=== PATIENT | female | born 1980 | race Caucasian/White ===

== ENCOUNTER 2020-08-09 19:14 | Emergency (ER) | payer OTHER, SELFPAY ==
[2020-08-09 20:33] VITALS: BP 125/88; PULSE 85; RESP 18; TEMP 36.7; O2SAT 99; BMI 20.9
[2020-08-09 20:46] LABS: MANUAL DIFF FLAG NO
[2020-08-09 20:50] LABS: Basophils Percent Auto 0.3 % (0-2); Eosinophils Absolute Auto 0.1 X10*3/uL (0.0-0.4); Eosinophils Percent Auto 0.9 % (0-4); Hematocrit 36.8 % (37-47); Hemoglobin 12.6 g/dl (12.0-16.0); Imm Gran Abs Auto 0.05 X10*3/uL (0.00-0.03); Imm Gran Pct Auto 0.4 % (0.0-0.4); Lymphocytes Absolute Auto 2.5 X10*3/uL (1.2-4.9); Lymphocytes Percent Auto 21.9 % (20-40); Mean Corpuscular HGB Conc 34.2 g/dl (31.0-35.0); Mean Corpuscular Hemoglobin 32.5 pg (27.0-33.0); Mean Corpuscular Volume 94.8 fL (80-98); Mean Platelet Volume 9.1 fL (9.4-12.3); Monocytes Absolute Auto 0.7 X10*3/uL (0.1-1.2); Monocytes Percent Auto 5.7 % (2-11); Neutrophils Absolute Auto 8.2 X10*3/uL (2.0-8.3); Neutrophils Percent Auto 70.8 % (45-73); Platelet Count 357 X10*3/uL (160-400); Red Blood Count 3.88 X10*6/uL (4.20-5.50); Red Cell Distribution Width 11.9 % (11.0-16.0); White Blood Count 11.6 X10*3/uL (4.8-10.8)
[2020-08-09 21:22] LABS: Alanine Aminotransferase < 6 U/L (0-31); Albumin Level 4.5 g/dL (3.5-5.0); Alkaline Phosphatase 58 U/L (39-117); Anion Gap 11 (12-20); Aspartate Amino Transferase 15 U/L (5-31); Bilirubin Total 0.2 mg/dL (0.0-1.0); Blood Urea Nitrogen 9 mg/dL (9-16); Carbon Dioxide 24 mmol/L (22-29); Chloride 107 mmol/L (96-108); Creatinine Clr Calc Pharmacy 104.6; Estimated Glomerular Filt Rate > 60; Glucose Random 83 mg/dL (60-115); Sodium 138 mmol/L (135-145)
== END 2020-08-10 01:44 | disposition left against medical advice (07) ==
PROVIDERS: Emergency Medicine Emergency Medical Services; Emergency Provider Emergency Medicine
DX: R10.9 Unspecified abdominal pain (principal)
CPT/HCPCS: 36415; 80053; 85025; 99282; 99283

== ENCOUNTER 2022-02-17 08:34 | Day surgery (SDC) | payer OTHER, SELFPAY ==
[2022-02-13 14:28] VITALS: BMI 24.3
--- NOTE | 2022-02-15 14:02 | HO.ANESPROP2 ---
Documented by User: Martha Schmidt NP 02/16/22 11:03 HPI - Anesthesia Eval Consult details Narrative: 42yo F for Upper Endoscopy PMFSH Past Medical History Medical History Anxiety and depression Chronic fatigue syndrome Encephalomyelitis History of substance abuse IBS (irritable bowel syndrome) Interstitial cystitis PFO (patent foramen ovale) PTSD (post-traumatic stress disorder) RBBB Surgical History Surgical History H/O colonoscopy History of lingual frenulectomy Hx of wisdom tooth extraction Social History Social History (Updated 02/17/22 @ 10:00 by Latonya Michele MD) Patient Tobacco Use Status: Former Tobacco user Tobacco use type: Cigarette Use of substances other than those prescribed or required for medical reasons: Yes Substance Use Type: Marijuana Substance Use Frequency: Daily Last Used Substance: Hours (ago) Are you DNR?: No Advance Directives: No Advance Directives Information Provided: Yes Meds Allergies Allergy/AdvReac Type Severity Reaction Status Date / Time No Known Allergies Allergy Verified 08/09/20 20:32 Home Medications Medication Instructions Recorded Confirmed Last Taken Type acetaminophen 500 mg tablet 500 mg PO DAILY 02/13/22 02/13/22 Unknown History acetylcarnitine 500 mg capsule 500 mg PO DAILY 02/13/22 02/13/22 Unknown History acetylcysteine 500 mg capsule 500 mg PO DAILY 02/13/22 02/13/22 Unknown History acyclovir 400 mg tablet 400 mg PO DAILY 02/13/22 02/13/22 Unknown History amitriptyline 10 mg tablet 30 mg PO BEDTIME 02/13/22 02/13/22 Unknown History bacillus coagulans-inulin 1 1 cap PO DAILY 02/13/22 02/13/22 Unknown History billion cell-250 mg capsule buspirone 10 mg tablet 10 mg PO BEDTIME 02/13/22 02/13/22 Unknown History buspirone 5 mg tablet 5 mg PO QAM 02/13/22 02/13/22 Unknown History cholecalciferol (vitamin D3) 125 125 mcg PO DAILY 02/13/22 02/13/22 Unknown History mcg (5,000 unit) tablet (Vitamin D3) dicyclomine 20 mg tablet 1 tab PO TID PRN Gastrointestinal 02/13/22 02/13/22 Unknown History Spasms Or Cramping ketorolac 10 mg tablet 1 tab PO Q6H PRN Pain 02/13/22 02/13/22 Unknown History lorazepam 1 mg tablet 1 mg PO TID PRN Anxiety 02/13/22 02/17/22 02/17/22 08:30 History lysine 500 mg tablet (L-Lysine) 1,000 mg PO DAILY 02/13/22 02/13/22 Unknown History melatonin 3 mg tablet 3 mg PO BEDTIME 02/13/22 02/13/22 Unknown History naproxen sodium 220 mg tablet 220 mg PO BID PRN Pain 02/13/22 02/13/22 Unknown History omega 4-xan-hup-fish oil 900 1 cap PO DAILY 02/13/22 02/13/22 Unknown History mg-1,400 mg capsule,delayed release ondansetron HCl 8 mg tablet 8 mg PO Q12H PRN Nausea 02/13/22 02/13/22 Unknown History propranolol 20 mg tablet 20 mg PO DAILY PRN Cardiac 02/13/22 02/13/22 Unknown History Arrhythmia lamotrigine 100 mg tablet 1 tab PO QAM 02/17/22 02/17/22 02/17/22 08:30 History Exam Exam Date and Time: February 15, 2022 1402 Height,Weight and Vital Signs: Height 5 ft 4 in Weight 64.41 kg Narrative Narrative: ECHO 05/2021 LV sys function is hyperdynamic iwht EF >70% Diastolic filling pattern is normal PFO present with R to L shunt EKG 01/2021 SR @ RAD incomplete RBBB (old) Assessment and Plan Assessment Anesthesia Assessment: Chart Reviewed Documented by User: Latonya Michele MD 02/17/22 10:05 PMFSH Past Medical History Medical History Anxiety and depression Chronic fatigue syndrome Encephalomyelitis History of substance abuse IBS (irritable bowel syndrome) Interstitial cystitis PFO (patent foramen ovale) PTSD (post-traumatic stress disorder) RBBB Family History Family history of problems with anesthesia: No Surgical History Surgical History H/O colonoscopy History of lingual frenulectomy Hx of wisdom tooth extraction History of Problems with Anesthesia: No Social History Social History (Updated 02/17/22 @ 10:00 by Latonya Michele MD) Patient Tobacco Use Status: Former Tobacco user Tobacco use type: Cigarette Use of substances other than those prescribed or required for medical reasons: Yes Substance Use Type: Marijuana Substance Use Frequency: Daily Last Used Substance: Hours (ago) Are you DNR?: No Advance Directives: No Advance Directives Information Provided: Yes Meds Allergies Allergy/AdvReac Type Severity Reaction Status Date / Time No Known Allergies Allergy Verified 08/09/20 20:32 Home Medications Medication Instructions Recorded Confirmed Last Taken Type acetaminophen 500 mg tablet 500 mg PO DAILY 02/13/22 02/13/22 Unknown History acetylcarnitine 500 mg capsule 500 mg PO DAILY 02/13/22 02/13/22 Unknown History acetylcysteine 500 mg capsule 500 mg PO DAILY 02/13/22 02/13/22 Unknown History acyclovir 400 mg tablet 400 mg PO DAILY 02/13/22 02/13/22 Unknown History amitriptyline 10 mg tablet 30 mg PO BEDTIME 02/13/22 02/13/22 Unknown History bacillus coagulans-inulin 1 1 cap PO DAILY 02/13/22 02/13/22 Unknown History billion cell-250 mg capsule buspirone 10 mg tablet 10 mg PO BEDTIME 02/13/22 02/13/22 Unknown History buspirone 5 mg tablet 5 mg PO QAM 02/13/22 02/13/22 Unknown History cholecalciferol (vitamin D3) 125 125 mcg PO DAILY 02/13/22 02/13/22 Unknown History mcg (5,000 unit) tablet (Vitamin D3) dicyclomine 20 mg tablet 1 tab PO TID PRN Gastrointestinal 02/13/22 02/13/22 Unknown History Spasms Or Cramping ketorolac 10 mg tablet 1 tab PO Q6H PRN Pain 02/13/22 02/13/22 Unknown History lorazepam 1 mg tablet 1 mg PO TID PRN Anxiety 02/13/22 02/17/22 02/17/22 08:30 History lysine 500 mg tablet (L-Lysine) 1,000 mg PO DAILY 02/13/22 02/13/22 Unknown History melatonin 3 mg tablet 3 mg PO BEDTIME 02/13/22 02/13/22 Unknown History naproxen sodium 220 mg tablet 220 mg PO BID PRN Pain 02/13/22 02/13/22 Unknown History omega 0-xmu-lii-fish oil 900 1 cap PO DAILY 02/13/22 02/13/22 Unknown History mg-1,400 mg capsule,delayed release ondansetron HCl 8 mg tablet 8 mg PO Q12H PRN Nausea 02/13/22 02/13/22 Unknown History propranolol 20 mg tablet 20 mg PO DAILY PRN Cardiac 02/13/22 02/13/22 Unknown History Arrhythmia lamotrigine 100 mg tablet 1 tab PO QAM 02/17/22 02/17/22 02/17/22 08:30 History Exam Height,Weight and Vital Signs: Height 5 ft 4 in Weight 64.41 kg Vital Signs Temp Pulse Resp BP Pulse Ox O2 Del Method 02/17/22 09:42 97.0 F 87 18 129/74 98 Room Air Pertinent Lab Results Pertinent Lab Results: Lab Results 02/17/22 Range/Units 09:15 Urine Test NEGATIVE (NEGATIVE) Airway Mallampati Class: II TM Dist: >3cm Neck ROM: Full (Sees physical therapy ) Loose/Missing/Broken Teeth: Yes (Top front chipped and cracked) Heart: RRR Lungs: CTAB Assessment and Plan Assessment Anesthesia Assessment: Anesthesia Plan Discussed Final Anesthetic Review Family History of Problems with Anesthesia: No History of Problems with Anesthesia: No NPO: Yes ASA Class: III Final Preanesthetic Review: No Changes in Pt Med Stat, Meds/Allgs Chart Reviewed, Consent Obtained/Reviewed and Anes Risks/Benef Reviewed Patient Risk: Intermediate Procedure Risk: Low Assessment/Block/Sedation in SS: Assess/Block/Sedation-SS Anesthetic Plan Anesthetic Plan: MAC: Disposition: Standard PACU
[2022-02-17 08:45] VITALS: BMI 24.0
[2022-02-17 09:40] LABS: UPreg QC Valid YES; Urine Pregnancy NEGATIVE (NEGATIVE)
[2022-02-17 09:42] VITALS: BP 129/74; PULSE 87; RESP 18; TEMP 36.1; O2SAT 98
[2022-02-17] MEDS: Lactated Ringers 1,000 ML 100 ML IVCONT (09:42)
[2022-02-17 10:36] VITALS: BP 108/64; PULSE 91; RESP 16; TEMP 37.1; O2SAT 96
--- NOTE | 2022-02-17 10:37 | P.BOP_ITS ---
Brief Operative Note Date of Service: 02/17/22 Pre-op diagnosis: GERD, abdominal discomfort Post-op diagnosis: other (Hiatal hernia) Procedure: EGD with biopsies Surgeon: Doug Castro Anesthesia: MAC Was an Insurance Underwriter used for this Procedure?: No Estimated blood loss (mL): 2.0 Pathology: other (A. Descending duodenum B. Gastric antrum C. EG Junction at 35cm) Condition: stable Disposition: PACU
[2022-02-17 10:51] VITALS: BP 113/69; PULSE 86; RESP 18; O2SAT 96
[2022-02-17 11:06] VITALS: BP 118/64; PULSE 81; RESP 16; TEMP 37.1; O2SAT 100
--- NOTE | 2022-02-17 21:46 | OP_ITS ---
SURGEON: Doug Castro MD INDICATIONS: The patient presents for evaluation of abdominal discomfort and gastroesophageal reflux. Full consent has been obtained from her for this, including risks of bleeding and perforation. PREOPERATIVE DIAGNOSIS: POSTOPERATIVE DIAGNOSIS: PROCEDURE PERFORMED: Esophagogastroduodenoscopy with biopsies. ESTIMATED BLOOD LOSS: COMPLICATIONS: ANESTHESIA: Monitored anesthesia care. ASSISTANTS: SPECIMENS: PREOPERATIVE DIAGNOSES: Abdominal discomfort and gastroesophageal reflux. POSTOPERATIVE DIAGNOSES: Abdominal discomfort and gastroesophageal reflux, rule out celiac disease, rule out gastritis and/or H pylori, small hiatal hernia. DESCRIPTION OF PROCEDURE: The patient was placed in the left lateral decubitus position. The Olympus video gastroscope was passed into the posterior oropharynx and upper esophagus under direct vision. The scope was passed slowly to the distal esophagus. The gastroesophageal junction appeared at 35 cm. There was some very slight irregularity but no evidence of esophagitis nor any definitive evidence of Jesus mucosa. The scope entered into the stomach. There was a small hiatal hernia. The scope was advanced to the pylorus and the duodenum was cannulated to the descending portion. The duodenum including the bulb appeared normal without mass or ulceration. The duodenal folds appeared normal. Biopsies were obtained from the 2nd and 3rd portions. The scope was withdrawn back to the stomach. The gastric antrum and body appeared normal with good peristalsis. Biopsies were obtained from the gastric antrum. The scope was retroflexed visualizing the proximal stomach carefully, which appeared normal, without any sign of mass or ulceration. The scope was straightened and withdrawn back to the esophagus. Biopsies were obtained at the EG junction at 35 cm. Proximal to this, the esophageal mucosa appeared normal. The scope was then withdrawn from the patient. She tolerated the procedure well and was returned to the recovery area in stable condition. IMPRESSION: 1. Small hiatal hernia. 2. Rule out celiac disease. 3. Rule out gastritis and/or Helicobacter pylori. PLAN: The results of the biopsies will be checked. She was instructed to see me again in several months for a followup office visit. At this point, I do not think she needs any further studies, but at some point if she continues to have significant upper abdominal complaints, we may want to obtain an abdominal ultrasound, even though she had a negative CT scan, so as to further assess for gallstones. We may want to get a nuclear medicine gastric emptying study at some point as well. MD LD Baird/BRYANT / [phone] [email or web address]
== END 2022-02-17 11:40 | disposition home or self-care (01) ==
PROVIDERS: Nurse Practitioner; PCP Nurse Practitioner Family; Visit Provider Internal Medicine
PROC: 0DJ08ZZ Inspection of Upper Intestinal Tract, Via Natural or Artificial Opening Endoscopic (ICD-10-PCS; CPT 43235; principal; 2022-02-17 09:50)
DX: R10.13 Epigastric pain (principal); K21.9 Gastro-esophageal reflux disease without esophagitis; K44.9 Diaphragmatic hernia without obstruction or gangrene; K58.0 Irritable bowel syndrome with diarrhea; R53.82 Chronic fatigue, unspecified; G04.90 Encephalitis and encephalomyelitis, unspecified; N30.10 Interstitial cystitis (chronic) without hematuria; E55.9 Vitamin D deficiency, unspecified; F41.8 Other specified anxiety disorders; Z79.1 Long term (current) use of non-steroidal anti-inflammatories (NSAID); Z79.899 Other long term (current) drug therapy; Z87.891 Personal history of nicotine dependence
CPT/HCPCS: 43239; 81025; 88305; 88342; J2250

== ENCOUNTER 2022-06-21 11:38 | Emergency (ER) | payer OTHER, SELFPAY ==
--- NOTE | ~2022-06-21 | CT_ITS ---
EXAMINATION: CT HEAD WITHOUT CONTRAST CLINICAL INFORMATION: Dizziness and confusion. Evaluate for stroke or hemorrhage. COMPARISON: No relevant prior imaging. TECHNIQUE: Contiguous axial imaging was performed from the skull base to vertex without intravenous administration of contrast. This CT examination was performed using dose optimization techniques as appropriate, variously including the following: *Automated exposure control *Adjustment of mA and/or kV according to patient size (this includes techniques or standardized protocols for targeted exams where dose is matched to indication/reason for exam; i.e. extremities or head) *Use of iterative reconstruction technique DLP: 598 mGy-cm FINDINGS: There is no acute intracranial hemorrhage or abnormal extra-axial collection. No intracranial mass effect or midline shift. Lateral and third ventricles are normal. No hydroceles. Whitt-white matter differentiation is preserved and there is no evidence of acute territorial infarct. The calvarium and skull base are intact. Mastoid air cells and middle ear cavities are well-aerated. No active paranasal sinus disease. CT/CT head/brain wo IV con IMPRESSION: Unremarkable CT scan of the head. No evidence of acute territorial infarct or hemorrhage.
[2022-06-21 12:13] VITALS: BP 140/78; PULSE 82; O2SAT 99
[2022-06-21 12:20] VITALS: BP 120/70; PULSE 74; RESP 16; TEMP 37.1; O2SAT 100; BMI 25.7
--- OUTSIDE RECORDS SUMMARY | 2022-06-21 12:36 | XMS_ITS ---
:1980 Demographics Address [address] [place] [address] Email Address Preferred Language Greek Marital Status Unknown Mormon Affiliation Unknown Race White Ethnic Group Not or Author Organization [facility] Address [address] [place] [address] Support Name Relationship Address Phone DAHIANA CORDOVA Unavailable [address] [place] [address] RUBIN CORDOVA Unavailable [address] [address] Care Team Providers Name Role Phone Doug Castro Unavailable Unavailable PROBLEMS Type Condition ICD9-CM [id number] Onset Condition SNOMED Cod e Code Code Dates Status Problem GERD K21.9 Active [id number] (gastroesophageal reflux disease) Problem Gastroesophageal K21.9 Active reflux Problem Irritable bowel K58.0 Active 1970 syndrome with diarrhea Problem Abdominal pain, R10.13 Active 7992 2008 acute, epigastric ALLERGIES No Known Allergies ENCOUNTERS Encounter Location Date Diagnosis [facility] Outpatient [address] [place] [address] Feb, Hiatal hernia K 44.9 ; [place], [place] [phone] Abdominal pain, generalized R10.84 and Gastr oesophageal reflux K21.[address] Feb, [facility] [address] [place] [address] Dec, [facility] [address] [place] [address] November, GERD ([facility] [address] [place], [place] reflux dis ease) K21.9 ; Abdominal pain, acute, epigastric R10.1 3 and Irritable bowel syndrome with diarrhea K5 8.0 IMMUNIZATIONS No Known Immunizations SOCIAL HISTORY Qualifiers Date Former Smoker REASON FOR REFERRAL FUNCTIONAL STATUS PLAN OF CARE Activity Details Pending Test Pathology Future/Pending Procedure UPPER GI ENDOSCOPY 20211209 VITAL SIGNS Weight 142 lbs 2021-12-09 Height 64 in 2021-12-09 BMI 24.37 kg/m2 2021-12-09 Temperature 98.4 degrees Fahrenheit 2021-12-09 Blood pressure systolic 00 mm Hg 2021-12-09 Blood pressure diastolic 00 mm Hg 2021-12-09 MEDICATIONS Medication Instructions Dosage Frequency Start End Duration Statu s Date Date Trace Minerals Active Cu-Mn-Se-Zn Lysine 500 MG as directed Active Acetaminophen 500 Orally every 6 1 capsule 6h Active MG hrs as needed Propranolol HCl TAKE ONE 30 Active 20 MG TABLET BY MOUTH THREE TIMES A DAY NEEDED [place] 3 Active Soluble Fiber Active Melatonin Active D-3-5 125 MCG TAKE ONE 90 Active (5000 UT) CAPSULE BY MOUTH EVERY DAY Pumpkin Seed Oil as directed Act jenise - busPIRone HCl 5 TAKE 1 30 Active MG TABLET BY MOUTH TWICE A DAY FOR 2 WEEKS, THEN DECREASE TO HALF A TABLET TWO TIMES A DAY Probiotic - as directed Active Naproxen Sodium Orally every 12 1 capsule 12h Active 220 MG hrs with food or milk as needed Xembify 1 GM/5ML 30 Active Acetyl Active L-Carnitine Banophen 25 MG Orally Once a 1 tablet at 24h 30 day( s) Active day bedtime as needed Acyclovir 400 MG 5 Active L-Theanine Active Amitriptyline HCl Oral Once a day TAKE 4 24h Active 10 MG TABLETS BY MOUTH NIGHTLY AT BEDTIME. Dicyclomine HCl 15 Active 20 MG Loratadine 10 MG Orally Once a 1 tablet 24h 30 day(s ) Active day lamoTRIgine 100 30 Active MG N-Acetyl Cysteine as directed Ac tive 600 MG hydrOXYzine HCl 30 Active 25 MG LORazepam 0.5 MG TAKE ONE 30 Active TABLET BY MOUTH EVERY 8 HOURS NEEDED FOR ANXIETY PROCEDURES Procedure Date Ordered Result Body Site BP SCR NOT PRFRM REC REASON NOS December 09, 2021 TOBACCO NON-USER December 09, 2021 DOC MEDS VERIFIED W/PT OR RE December 09, 2021 UPPER GI ENDOSCOPY, BIOPSY Feb 17, 2022 RESULTS Name Result Date Reference Range Ur Preg Test 2022-02-17 Urine NEGATIVE NEGATIVE REASON FOR VISIT gerd,epigastric pain, has taken a lot of naproxen , gerd,epigastric pain, Patient presents today forchest pain Insurance Providers [facility]ly [facility] Member Patient Patient Patient Patient Patient Subscriber Subscriber Subscriber Group Insurance Plan Plan Plan Plan ID Relationship Address Phone Name Date of ID Name Date of No Type Insurance Insurance Insurance Coverage to Subscriber Address Phone Name Dates [employer] [phone] [employer] self DAHIANA [id number] [facility] [address] [place] [address] Plan [id number]
--- NOTE | 2022-06-21 12:37 | ED.AMS ---
HPI - Altered Mental Status General Chief Complaint: Dizziness Stated Complaint: Dizzy, confused per EMS Time Seen by Provider: 06/21/22 12:04 Source: patient Mode of arrival: EMS Limitations: no limitations History of Present Illness HPI narrative: 42-year-old female who presents emergency department for evaluation of altered mental status and multiple other complaints. Patient states that she was working at her desk at around 10:40 when she had a sudden onset of change in mental status. She states she felt as if she was high. She states that lytes were bright and things did not seem real. She states that she then developed a coldness in both her hands and tingling this in her hands. She does have a history of anxiety and panic attacks since that she was feeling anxious. She took her blood pressure and was initially 137/83, she repeated was 148/90. She states she was feeling confused and she was unable to think can find words. She states that she was forgetting things that she normally could remember. She states she then developed a room spinning sensation which was also new for her. The patient did take lorazepam 1 mg orally with some improvement of her symptoms. She states that she also developed chest pain at around 11:15 hours. She describes it as a pressure in the right side of her chest and a cold feeling in the right side of her chest. She states that the pressure and cold feeling was intermittent and both for hands felt ?weird ?. She also states that her mouth was very dry. At the time my evaluation she states she still feels altered as if she has high, she believes that she is having difficulty with word finding and difficulty with remembering things. She states that the chest pain has resolved. complaint: altered mental status Time: 10:40 Severity: moderate Associated symptoms: chest pain Related Data Home Medications Medication Instructions Recorded Confirmed acetaminophen 500 mg tablet 500 mg PO DAILY 02/13/22 02/13/22 acetylcarnitine 500 mg capsule 500 mg PO DAILY 02/13/22 02/13/22 acetylcysteine 500 mg capsule 500 mg PO DAILY 02/13/22 02/13/22 acyclovir 400 mg tablet 400 mg PO DAILY 02/13/22 02/13/22 amitriptyline 10 mg tablet 30 mg PO BEDTIME 02/13/22 02/13/22 bacillus coagulans-inulin 1 1 cap PO DAILY 02/13/22 02/13/22 billion cell-250 mg capsule buspirone 10 mg tablet 10 mg PO BEDTIME 02/13/22 02/13/22 buspirone 5 mg tablet 5 mg PO QAM 02/13/22 02/13/22 cholecalciferol (vitamin D3) 125 125 mcg PO DAILY 02/13/22 02/13/22 mcg (5,000 unit) tablet (Vitamin D3) dicyclomine 20 mg tablet 1 tab PO TID PRN Gastrointestinal 02/13/22 02/13/22 Spasms Or Cramping ketorolac 10 mg tablet 1 tab PO Q6H PRN Pain 02/13/22 02/13/22 lorazepam 1 mg tablet 1 mg PO TID PRN Anxiety 02/13/22 02/17/22 lysine 500 mg tablet (L-Lysine) 1,000 mg PO DAILY 02/13/22 02/13/22 melatonin 3 mg tablet 3 mg PO BEDTIME 02/13/22 02/13/22 naproxen sodium 220 mg tablet 220 mg PO BID PRN Pain 02/13/22 02/13/22 omega 0-sso-jlx-fish oil 900 1 cap PO DAILY 02/13/22 02/13/22 mg-1,400 mg capsule,delayed release ondansetron HCl 8 mg tablet 8 mg PO Q12H PRN Nausea 02/13/22 02/13/22 propranolol 20 mg tablet 20 mg PO DAILY PRN Cardiac 02/13/22 02/13/22 Arrhythmia lamotrigine 100 mg tablet 1 tab PO QAM 02/17/22 02/17/22 Previous Rx's Medication Instructions Recorded meclizine 25 mg tablet (Dramamine 25 mg PO TID PRN dizziness #20 tabs 06/21/22 Less Drowsy) Allergies Allergy/AdvReac Type Severity Reaction Status Date / Time adhesive Allergy Rash Verified 06/21/22 12:20 Review of Systems Review of Systems: Yes all other systems are reviewed and are negative [facility] Past Medical History [facility] Narrative: Social history: The patient denies tobacco and alcohol use. 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 Medical History Anxiety and depression Chronic fatigue syndrome Encephalomyelitis History of substance abuse IBS (irritable bowel syndrome) Interstitial cystitis PFO (patent foramen ovale) PTSD (post-traumatic stress disorder) RBBB Surgical History H/O colonoscopy History of lingual frenulectomy Hx of wisdom tooth extraction Social History Social History Patient Tobacco Use Status: Former Tobacco user Tobacco use type: Cigarette Substance Use Type: Marijuana Advance Directives: No Advance Directives Information Provided: Yes Physical Exam ED Vital Signs: Vital Signs - 24 hr 06/21/22 12:20 06/21/22 13:37 06/21/22 17:06 Temperature 98.8 F 98.3 F Pulse Rate 74 64 80 Respiratory Rate 16 16 16 Blood Pressure 120/70 118/51 L 121/64 Pulse Oximetry 100 97 99 Oxygen Delivery Method Room Air Room Air Room Air BMI result Body Mass Index 25.7 Const General: cooperative and no acute distress Orientation/consciousness: oriented to person and oriented to place Limitations: no limitations HENMT Head: Yes normal to inspection, Yes normocephalic and Yes atraumatic Ears: external ears normal General nose exam: Normal external nose present Face and sinus: Yes normal facial exam Mouth: Normal oral and palatal mucosa present Throat: Yes posterior oropharynx normal Eyes General: appearance normal, both eyes and all related structures Pupils: Equal, round and reactive pupils present Neck Neck: Yes normal visual inspection, Yes no lymphadenopathy, Yes trachea midline and Yes supple Chest Chest palpation & inspection: normal inspection of the chest and normal palpation of entire chest wall Resp Effort & Inspection: normal respiratory effort and able to speak in complete sentences Auscultation: clear to auscultation bilaterally Cardio Rate: regular rate Rhythm: regular rhythm Heart sounds: S1 normal heart sound present, S2 normal heart sound present and no murmurs GI Inspection: Yes normal to inspection Palpation (GI): Soft to palpation, nontender and no guarding Auscultation: normal bowel sounds General: Yes no CVA tenderness Back/Spine/Pelvis Back: no CVA tenderness Skin General skin exam: no rashes or lesions noted Neuro General: oriented to person and oriented to place Cranial nerves: Yes CN's II-XII intact bilaterally and Yes Equal, round and reactive pupils present Cognition (Neuro): normal cognition Motor exam (neuro): 5/5 motor strength present throughout Coordination: [id number] test normal, [id number] test normal, Romberg test negative, Normal rapid alternating movements of the distal upper extremity present (Neuro) and other (Dizziness and this diagnosed with position change, head turned to the left) Extrem General: Yes normal to inspection Psych Appearance: grossly normal Speech and movement: Normal speech and movement present Affect: normal affect Attitude: cooperative Thought process: Normal thought process present Thought content: Normal thought content present Course Course Course Narrative: 42-year-old female who presents emergency department for evaluation mental status change was began today at 10:40 hours while she was working at home on her computer. The patient had multiple symptoms including feelings of she was high, bright lights being brighter, images not being radial, feeling confused, having difficulty with word finding, rooms since pending sensation and chest pain. The patient does have anxiety and states she took lorazepam at home with some improvement of her symptoms but not complete resolution. Vital signs were normal. Patient's neurologic exam was normal with normal cerebellar exam. Patient did have room spinning dizziness with her head turned to the left and position change. Given her multiple symptoms, I did order CBC, CMP, PT/INR, PTT, troponin, EKG, CT scan of the brain, urine drug screen, alcohol level. Patient was given Ativan 1 mg orally and meclizine 25 mg orally. 1753: Laboratory evaluation: CBC was normal. CMP was normal. Coags negative. Quantitative beta-hCG was negative. Alcohol was below detectable limits. Urine tox screen positive for marijuana, patient takes marijuana for sleep. Troponin below detectable limits. Radiology evaluation: CT scan of the brain without IV contrast was unremarkable. Twelve EKG: Right bundle-branch block otherwise unremarkable, this is chronic. This time I believe the patient's presentation is consistent with benign positional vertigo given her room spinning sensation. She did tell me that she has a patent foramen ovale but did not think that she has had a stroke. The patient did feel better after receiving Ativan and meclizine. She was prescribed meclizine 25 mg pills, 1 pill 3 times a day as needed for dizziness. She was given printed and verbal instructions and discharged home. Medications Administered Discontinued Medications Generic Name Dose Route Start Last Admin Trade Name Freq PRN Reason Stop Dose Admin Lorazepam 1 mg 06/21/22 12:30 06/21/22 12:49 Lorazepam 1 Mg Tablet PO 06/21/22 12:31 1 mg ONCE STA Administration Meclizine HCl 25 mg 06/21/22 12:36 06/21/22 12:49 Meclizine Hcl 25 Mg Tablet PO 06/21/22 12:37 25 mg ONCE STA Administration Medical Decision Making Medical Decision Making Differential Diagnoses: Differential diagnosis (Benign positional vertigo, stroke, anxiety, panic attack) Consideration of admission/observation: Consideration of Admission/Observation (Yes) Discussion of management with other physician/healthcare provider/other source (e.g., hospitalist, consumer experience consultant, behavioral health): Discussion w/other physician/healthcare provider (No) My interpretation is Lab Attestation: I reviewed the patient's lab results. Independent interpretation of EKG, rhythm strip, radiology study: Independent interp EKG,rhythm strip, radiology study I performed an independent interpretation of the: EKG (1737 normal sinus rhythm rate of 64, normal ME interval, prolonged QRS duration of 124 milliseconds, normal QTC interval of 414 milliseconds, RR prime V1 with inverted T-wave in V1 to V3, consistent with right bundle brijesh block) My interpretation is Discharge Plan Discharge Clinical Impression: Benign paroxysmal positional vertigo, Anxiety, Chest pain Patient Disposition: Home, Self-Care Instructions: Benign Paroxysmal Positional Vertigo (ED) Additional Instructions: Your laboratory evaluation was unremarkable. Your 12 EKG revealed a right bundle-branch block which is not new for you and is not the cause of your symptoms. The CT scan of your brain revealed no acute findings. At this time I believe that your symptoms were caused by benign positional vertigo this then triggered an anxiety attack in you. Take meclizine 25 mg pills, 1 pill 3 times a day for the next 3 days for dizziness then as needed for dizziness. This medication will make you sleepy. Do not drive or work while taking this medication. Follow-up with your doctor in 2 days. Please return to the emergency department if your symptoms get worse or if you develop any symptoms that are concerning to you. Prescriptions: New meclizine [Dramamine Less Drowsy] 25 mg tablet 25 mg PO TID PRN (Reason: dizziness) Qty: 20 0RF No Action naproxen sodium 220 mg Tablet 220 mg PO BID PRN (Reason: Pain) buspirone 5 mg Tablet 5 mg PO QAM ondansetron HCl [Zofran] 8 mg Tablet 8 mg PO Q12H PRN (Reason: Nausea) melatonin 3 mg Tablet 3 mg PO BEDTIME acyclovir 400 mg Tablet 400 mg PO DAILY acetaminophen 500 mg Tablet 500 mg PO DAILY ketorolac 10 mg tablet 1 tab PO Q6H PRN (Reason: Pain) dicyclomine 20 mg tablet 1 tab PO TID PRN (Reason: Gastrointestinal Spasms Or Cramping) amitriptyline 10 mg Tablet 30 mg PO BEDTIME buspirone 10 mg Tablet 10 mg PO BEDTIME lorazepam 1 mg Tablet 1 mg PO TID PRN (Reason: Anxiety) propranolol 20 mg Tablet 20 mg PO DAILY PRN (Reason: Cardiac Arrhythmia) lysine [L-Lysine] 500 mg Tablet 1,000 mg PO DAILY acetylcarnitine 500 mg Capsule 500 mg PO DAILY cholecalciferol (vitamin D3) [Vitamin D3] 125 mcg (5,000 unit) Tablet 125 mcg PO DAILY bacillus coagulans-inulin 1 billion-250 cell-mg Capsule 1 cap PO DAILY [place] 3 Fish Oil 900-1,400 mg Capsule,Delayed Release(Dr/Ec) 1 cap PO DAILY acetylcysteine 500 mg Capsule 500 mg PO DAILY lamotrigine 100 mg tablet 1 tab PO QAM
[2022-06-21] MEDS: LORazepam 1 MG TABLET PO (12:49)
[2022-06-21] MEDS: Meclizine HCl 25 MG TABLET PO (12:49)
--- NOTE | 2022-06-21 12:52 | PC.NURSE ---
pt a&ox3, vss, medicated per provider order, tech at bedside collecting labs/urine. no new orders at this time.
[2022-06-21 13:07] LABS: MANUAL DIFF FLAG NO
[2022-06-21 13:08] LABS: Basophils Absolute Auto 0.1 X10*3/uL (0.0-0.2); Basophils Percent Auto 0.5 % (0-2); Eosinophils Absolute Auto 0.3 X10*3/uL (0.0-0.4); Eosinophils Percent Auto 2.9 % (0-4); Hematocrit 41.1 % (37.0-47.0); Hemoglobin 13.7 g/dl (12.0-16.0); Imm Gran Abs Auto 0.07 X10*3/uL (0.00-0.03); Imm Gran Pct Auto 0.7 % (0.0-0.4); Lymphocytes Absolute Auto 1.7 X10*3/uL (1.2-4.9); Lymphocytes Percent Auto 16.4 % (20-40); Mean Corpuscular HGB Conc 33.3 g/dl (31.0-35.0); Mean Corpuscular Hemoglobin 30.7 pg (27.0-33.0); Mean Corpuscular Volume 92.2 fL (80.0-98.0); Mean Platelet Volume 8.5 fL (9.4-12.3); Monocytes Absolute Auto 0.6 X10*3/uL (0.1-1.2); Monocytes Percent Auto 5.8 % (2-11); Neutrophils Absolute Auto 7.8 x10*3/uL (2.0-8.3); Neutrophils Percent Auto 73.7 % (45-73); Platelet Count 345 X10*3/uL (160-400); Red Blood Count 4.46 X10*6/uL (4.20-5.50); Red Cell Distribution Width 11.8 % (11.0-16.0); White Blood Count 10.6 X10*3/uL (4.8-10.8)
[2022-06-21 13:13] LABS: INTERNATIONAL NORM RATIO 0.9 (0.9-1.1); Prothrombin Time 10.8 SEC (10.0-13.1)
[2022-06-21 13:16] LABS: Partial Thromboplastin Time 33.6 SEC (26.0-36.4)
[2022-06-21 13:19] LABS: Amphetamine Screen Urine Not Detected (Not Detect); Barbiturates, Urine Not Detected (Not Detect); Benzodiazepines Screen Urine Not Detected (Not Detect); Cannabinoid Screen Urine POSITIVE (Not Detect); Cocaine Screen Urine Not Detected (Not Detect); Fentanyl, urine Not Detected (Not Detect); Opiate Screen Urine Not Detected (Not Detect); Phencyclidine Screen Urine Not Detected (Not Detect)
[2022-06-21 13:29] LABS: Ethanol < 10 mg/dL
[2022-06-21 13:36] LABS: Troponin-I High Sensitivity < 3.5 ng/L (<3.5-17.0)
[2022-06-21 13:37] VITALS: BP 118/51; PULSE 64; RESP 16; O2SAT 97
[2022-06-21 13:43] LABS: HCG Quantitative < 2 mIU/mL
[2022-06-21 13:48] LABS: Alanine Aminotransferase 9 U/L (0-31); Albumin Level 4.3 g/dL (3.5-5.0); Alkaline Phosphatase 62 U/L (39-117); Aspartate Amino Transferase 13 U/L (5-31); Bilirubin Total 0.3 mg/dL (0.0-1.0); Blood Urea Nitrogen 11 mg/dL (9-16); Calcium 9.2 mg/dL (8.4-10.2); Creatinine Clr Calc Pharmacy 98.4; Estimated Glomerular Filt Rate > 60; Glucose Random 105 mg/dL (60-115); Lipase 15 U/L (8-78); Total Protein 6.7 g/dL (6.5-8.0)
[2022-06-21 13:55] LABS: Anion Gap 11 (12-20); Carbon Dioxide 26 mmol/L (22-29); Chloride 106 mmol/L (96-108); Potassium 4.3 mmol/L (3.3-5.1); Sodium 139 mmol/L (135-145)
[2022-06-21 17:06] VITALS: BP 121/64; PULSE 80; RESP 16; TEMP 36.8; O2SAT 99
--- NOTE | 2022-06-21 17:32 | ECG_ITS ---
Test Reason : CHEST PAIN Blood Pressure : / mmHG Vent. Rate : 064 BPM Atrial Rate : 064 BPM P-R Int : 158 ms QRS Dur : 124 ms QT Int : 402 ms P-R-T Axes : 060 081 064 degrees QTc Int : 414 ms Normal sinus rhythm with sinus arrhythmia Right bundle branch block Abnormal ECG When compared with ECG of 09-FEB-2018 17:39, No significant change was found Referred By: Robinson Suazo Electronically Signed By:KIRBY DEMPSEY MD
== END 2022-06-21 19:20 | disposition home or self-care (01) ==
PROVIDERS: Emergency Provider Emergency Medicine Emergency Medical Services; PCP Internal Medicine
DX: R42 Dizziness and giddiness (principal); R07.89 Other chest pain; F41.1 Generalized anxiety disorder; F43.0 Acute stress reaction; Z79.899 Other long term (current) drug therapy; F17.210 Nicotine dependence, cigarettes, uncomplicated; Z71.6 Tobacco abuse counseling
CPT/HCPCS: 36415; 70450; 80053; 80307; 82077; 83690; 84484; 84702; 85025; 85610; 85730; 93005; 99284

== ENCOUNTER 2022-08-24 12:34 | Emergency (ER) | payer OTHER, SELFPAY ==
--- NOTE | 2022-08-24 12:46 | ECG_ITS ---
Test Reason : tachycardia Blood Pressure : / mmHG Vent. Rate : 105 BPM Atrial Rate : 105 BPM P-R Int : 116 ms QRS Dur : 120 ms QT Int : 362 ms P-R-T Axes : 064 098 018 degrees QTc Int : 478 ms Sinus tachycardia Right bundle branch block Abnormal ECG When compared with ECG of 21-JUN-2022 17:37, Vent. rate has increased BY 41 BPM T wave inversion now evident in Inferior leads QT has lengthened Referred By: Margie Magdaleno Electronically Signed By:KIRBY DEMPSEY MD
--- NOTE | 2022-08-24 12:54 | ED_ITS ---
HPI - Chest Pain General Chief Complaint: Arrhythmia/Palpitations <TYREL Durbin - Last Filed: 08/24/22 17:00> Stated Complaint: FAST HR 140'S W/LIGHTHEADEDNESS <TYREL Durbin - Last Filed: 08/24/22 17:00> Time Seen by Provider: 08/24/22 21:48 <TYREL Durbin - Last Filed: 08/24/22 17:00> Source: patient <Nya Mei MD - Last Filed: 08/24/22 22:24> Mode of arrival: ambulatory <Nya Mei MD - Last Filed: 08/24/22 22:24> Limitations: no limitations <Nya Mei MD - Last Filed: 08/24/22 22:24> History of Present Illness HPI narrative: Patient comes in the emergency room complaining of palpitations. Patient states that she does have history of tachycardia and also history of as certainly degree of hypochondria and severe anxiety. Patient denies chest pain, no shortness of breath. Patient states that the palpitations are new to her, started approximately couple of weeks ago. Patient states that she recently sta rted taking clonidine and Seroquel. However, this medications were started after the intermittent palpitations had begun. <Nya Mei MD - Last Filed: 08/24/22 22:24> Related Data Home Medications: Home Medications Medication Instructions Recorded Confirmed acetaminophen 500 mg tablet 500 mg PO DAILY 02/13/22 02/13/22 acetylcarnitine 500 mg capsule 500 mg PO DAILY 02/13/22 02/13/22 acetylcysteine 500 mg capsule 500 mg PO DAILY 02/13/22 02/13/22 acyclovir 400 mg tablet 400 mg PO DAILY 02/13/22 02/13/22 amitriptyline 10 mg tablet 30 mg PO BEDTIME 02/13/22 02/13/22 bacillus coagulans-inulin 1 1 cap PO DAILY 02/13/22 02/13/22 billion cell-250 mg capsule buspirone 10 mg tablet 10 mg PO BEDTIME 02/13/22 02/13/22 buspirone 5 mg tablet 5 mg PO QAM 02/13/22 02/13/22 cholecalciferol (vitamin D3) 125 125 mcg PO DAILY 02/13/22 02/13/22 mcg (5,000 unit) tablet (Vitamin D3) dicyclomine 20 mg tablet 1 tab PO TID PRN Gastrointestinal 02/13/22 02/13/22 Spasms Or Cramping ketorolac 10 mg tablet 1 tab PO Q6H PRN Pain 02/13/22 02/13/22 lorazepam 1 mg tablet 1 mg PO TID PRN Anxiety 02/13/22 02/17/22 lysine 500 mg tablet (L-Lysine) 1,000 mg PO DAILY 02/13/22 02/13/22 melatonin 3 mg tablet 3 mg PO BEDTIME 02/13/22 02/13/22 naproxen sodium 220 mg tablet 220 mg PO BID PRN Pain 02/13/22 02/13/22 omega 7-xpp-egv-fish oil 900 1 cap PO DAILY 02/13/22 02/13/22 mg-1,400 mg capsule,delayed release ondansetron HCl 8 mg tablet 8 mg PO Q12H PRN Nausea 02/13/22 02/13/22 propranolol 20 mg tablet 20 mg PO DAILY PRN Cardiac 02/13/22 02/13/22 Arrhythmia lamotrigine 100 mg tablet 1 tab PO QAM 02/17/22 02/17/22 Previous Rx's Medication Instructions Recorded meclizine 25 mg tablet (Dramamine 25 mg PO TID PRN dizziness #20 tabs 06/21/22 Less Drowsy) <TYREL Durbin - Last Filed: 08/24/22 17:00> Allergies/Adverse Reactions: Allergies Allergy/AdvReac Type Severity Reaction Status Date / Time adhesive Allergy Rash Verified 06/21/22 12:20 <TYREL Durbin - Last Filed: 08/24/22 17:00> Review of Systems Review of Systems: Constitutional : No Weight loss, No Fever, No Chills, No Night Sweats, No Fatigue, No Malaise ENT/Mouth : No Hearing loss, No Ear Pain, No Nasal Congestion, No Sinus Pain, No Hoarseness, No sore throat, No Rhinorrhea, No Swallowing Difficulty Eyes: No Eye Pain, No Swelling, No Redness, No Foreign Body, No Discharge, No V ision Changes Cardiovascular : No Chest Pain, No SOB, No Dyspnea on Exertion, No Orthopnea, No Edema, complaining of Palpitations Respiratory : No Cough, No Sputum, No Wheezing, No Smoke Exposure, No Dyspnea Gastrointestinal : No Nausea, No Vomiting, No Diarrhea, No Constipation, No abdominal Pain, No Hematochezia, No Melena Genitourinary : no irregular bleeding, No Dysuria, No Urinary Frequency, No Hematuria, No Urinary Incontinence, No Urgency, No Flank Pain, No Urinary Flow Changes, No Hesitancy Musculoskeletal : No joint pain, No Myalgias, No Joint Swelling Skin : No Skin Lesions, No rash Neuro : No Weakness, No Numbness, No Paresthesias, No Loss of Consciousness, No Dizziness, No Headache Psych : Complaining of Anxiety/Panic, No Depression, No SI/HI/AH/VH, No Social Issues, Heme/Lymph: No Bruising, No Bleeding,No Lymphadenopathy Endocrine : No Polyuria, No Polydipsia, No Temperature Intolerance <Nya Mei MD - Last Filed: 08/24/22 22:24> [facility] Past Medical History Medical History: Medical History Anxiety and depression Chronic fatigue syndrome Encephalomyelitis History of substance abuse IBS (irritable bowel syndrome) Interstitial cystitis PFO (patent foramen ovale) PTSD (post-traumatic stress disorder) RBBB <TYREL Durbin - Last Filed: 08/24/22 17:00> Surgical History: Surgical History H/O colonoscopy History of lingual frenulectomy Hx of wisdom tooth extraction <TYREL Durbin - Last Filed: 08/24/22 17:00> Social History Social History: Social History Patient Tobacco Use Status: Former Tobacco user Tobacco use type: Cigarette Substance Use Type: Marijuana Advance Directives: No <TYREL Durbin - Last Filed: 08/24/22 17:00> Physical Exam Vital Signs: Vital Signs: Last Vital Signs Temp 98.3 F 08/24/22 20:53 Pulse 82 08/24/22 20:53 Resp 18 08/24/22 20:53 BP 133/65 08/24/22 20:53 Pulse Ox 98 08/24/22 20:53 O2 Del Method 08/24/22 20:53 BMI result Body Mass Index 24.5 <TYREL Durbin - Last Filed: 08/24/22 17:00> Vital Signs: Last Vital Signs Temp 98.3 F 08/24/22 20:53 Pulse 82 08/24/22 20:53 Resp 18 08/24/22 20:53 BP 133/65 08/24/22 20:53 Pulse Ox 98 08/24/22 20:53 O2 Del Method 08/24/22 20:53 BMI result Body Mass Index 24.5 <Nya Mei MD - Last Filed: 08/24/22 22:24> Const: Other: Appearance: Alert. Oriented X3. No acute distress. Eyes: Pupils equal, round and reactive to light. ENT: Pharynx normal. Neck: Normal inspection. Neck supple. No lymph nodes noted. No crepitus CVS: Normal heart rate and rhythm. Pulses normal. Normal S1 and S2 Respiratory: No respiratory distress. Breath sounds normal. No Wheezing. No rales Abdomen: Soft and nontender. No rigidity. No distention. Skin: Skin warm and dry. Normal skin color. Normal skin turgor. Extremities: No lower extremity edema. No Lacerations. No Rash Neuro: Oriented X 3. No motor deficit. No sensory deficit. Moving all extremities. No slurred speech. CN 2 through 12 grossly intact Psych: calm, cooperative, anxious <Nya Mei MD - Last Filed: 08/24/22 22:24> Course Course Course Narrative: This is an RME: Additional HPI, ROS, PE not included below will be deferred to primary provider. 42 year old female presents via ambulance with complaints of palpitations, she tells me her heart is racing she feels lightheaded and does not feel well. This started just prior to arrival. Patient denies chest pain, shortness of breath, fevers, chills, anxiety, nausea, vomiting, abdominal pain. Upon exam rapid regular rhythm likely sinus tachycardia. Labs, troponin and EKG will be ordered. <TYREL Durbin - Last Filed: 08/24/22 17:00> Medications Administered Discontinued Medications Generic Name Dose Route Start Last Admin Trade Name Freq PRN Reason Stop Dose Admin Naproxen 500 mg 08/24/22 17:00 08/24/22 20:42 Naproxen 500 Mg Tablet PO 08/24/22 17:01 500 mg ONCE ONE Administration <TYREL Durbin - Last Filed: 08/24/22 17:00> Medications Administered Discontinued Medications Generic Name Dose Route Start Last Admin Trade Name Freq PRN Reason Stop Dose Admin Naproxen 500 mg 08/24/22 17:00 08/24/22 20:42 Naproxen 500 Mg Tablet PO 08/24/22 17:01 500 mg ONCE ONE Administration <Nya Mei MD - Last Filed: 08/24/22 22:24> Medical Decision Making Medical Decision Making [facility] Narrative: -discussed with the patient in the emergency room, her heart rate is fairly stable, sinus rhythm, occasional spikes and heart rate up to 115. Mostly under 100. -discussed with the patient that her labs are within normal limits -patient has occasional PVCs on monitor. Otherwise, patient has sinus rhythm. EKG shows sinus rhythm, heart rate 105, no ST segment depressions, nonspecific T-wave inversions in lead 3, QTC 478. <Nya Mei MD - Last Filed: 08/24/22 22:24> Lab Data [facility] Lab Attestation statement: I reviewed the patient's lab results. <Nya Mei MD - Last Filed: 08/24/22 22:24> Result Diagrams: 08/24/22 13:07 08/24/22 13:07 <TYREL Durbin - Last Filed: 08/24/22 17:00> Labs: Lab Results 08/24/22 08/24/22 08/24/22 Range/Units 13:07 13:07 13:07 WBC 7.4 (4.8-10.8) X10*3/uL RBC 4.55 (4.20-5.50) X10*6/uL Hgb 14.1 (12.0-16.0) g/dl Hct 41.5 (37.0-47.0) % MCV 91.2 (80.0-98.0) fL MCH 31.0 (27.0-33.0) pg MCHC 34.0 (31.0-35.0) g/dl RDW 12.0 (11.0-16.0) % Plt Count 378 (160-400) X10*3/uL MPV 8.8 L (9.4-12.3) fL Immature Gran % (Auto) 0.5 H (0.0-0.4) % Neut % (Auto) 64.2 (45-73) % Lymph % (Auto) 25.3 (20-40) % [place] % (Auto) 7.3 (2-11) % Eos % (Auto) 2.2 (0-4) % Baso % (Auto) 0.5 (0-2) % Lymph # (Auto) 1.9 (1.2-4.9) X10*3/uL [place] # (Auto) 0.5 (0.1-1.2) X10*3/uL Eos # (Auto) 0.2 (0.0-0.4) X10*3/uL Baso # (Auto) 0.0 (0.0-0.2) X10*3/uL Abs Immat Gran (auto) 0.04 H (0.00-0.03) X10*3/uL Absolute Neuts (auto) 4.7 (2.0-8.3) x10*3/uL Absolute Nucleated RBC 0.000 (0.0-0.012) X10*3/uL Nucleated RBC % (auto) 0.0 (0.0-0.2) /100WBC Sodium 139 (135-145) mmol/L Potassium 4.4 (3.3-5.1) mmol/L Chloride 106 (96-108) mmol/L Carbon Dioxide 24 (22-29) mmol/L Anion Gap 13 (12-20) BUN 8 L (9-16) mg/dL Creatinine 0.71 (0.5-1.4) mg/dL Estim Creat Clear Calc 91.0 Estimated GFR > 60 Random Glucose 125 H (60-115) mg/dL Calcium 10.0 D (8.4-10.2) mg/dL Magnesium 2.2 (1.6-2.6) mg/dL Total Bilirubin 0.3 (0.0-1.0) mg/dL AST 18 (5-31) U/L ALT 12 (0-31) U/L Alkaline Phosphatase 70 (39-117) U/L Troponin I High Sens < 3.5 (<3.5-17.0) ng/L Total Protein 7.2 (6.5-8.0) g/dL Albumin 4.6 (3.5-5.0) g/dL <TYREL Durbin - Last Filed: 08/24/22 17:00> Lab Results 08/24/22 08/24/22 08/24/22 Range/Units 13:07 13:07 13:07 WBC 7.4 (4.8-10.8) X10*3/uL RBC 4.55 (4.20-5.50) X10*6/uL Hgb 14.1 (12.0-16.0) g/dl Hct 41.5 (37.0-47.0) % MCV 91.2 (80.0-98.0) fL MCH 31.0 (27.0-33.0) pg MCHC 34.0 (31.0-35.0) g/dl RDW 12.0 (11.0-16.0) % Plt Count 378 (160-400) X10*3/uL MPV 8.8 L (9.4-12.3) fL Immature Gran % (Auto) 0.5 H (0.0-0.4) % Neut % (Auto) 64.2 (45-73) % Lymph % (Auto) 25.3 (20-40) % [place] % (Auto) 7.3 (2-11) % Eos % (Auto) 2.2 (0-4) % Baso % (Auto) 0.5 (0-2) % Lymph # (Auto) 1.9 (1.2-4.9) X10*3/uL [place] # (Auto) 0.5 (0.1-1.2) X10*3/uL Eos # (Auto) 0.2 (0.0-0.4) X10*3/uL Baso # (Auto) 0.0 (0.0-0.2) X10*3/uL Abs Immat Gran (auto) 0.04 H (0.00-0.03) X10*3/uL Absolute Neuts (auto) 4.7 (2.0-8.3) x10*3/uL Absolute Nucleated RBC 0.000 (0.0-0.012) X10*3/uL Nucleated RBC % (auto) 0.0 (0.0-0.2) /100WBC Sodium 139 (135-145) mmol/L Potassium 4.4 (3.3-5.1) mmol/L Chloride 106 (96-108) mmol/L Carbon Dioxide 24 (22-29) mmol/L Anion Gap 13 (12-20) BUN 8 L (9-16) mg/dL Creatinine 0.71 (0.5-1.4) mg/dL Estim Creat Clear Calc 91.0 Estimated GFR > 60 Random Glucose 125 H (60-115) mg/dL Calcium 10.0 D (8.4-10.2) mg/dL Magnesium 2.2 (1.6-2.6) mg/dL Total Bilirubin 0.3 (0.0-1.0) mg/dL AST 18 (5-31) U/L ALT 12 (0-31) U/L Alkaline Phosphatase 70 (39-117) U/L Troponin I High Sens < 3.5 (<3.5-17.0) ng/L Total Protein 7.2 (6.5-8.0) g/dL Albumin 4.6 (3.5-5.0) g/dL <Nya Mei MD - Last Filed: 08/24/22 22:24> Discharge Plan Discharge Clinical Impression: Palpitations <TYREL Durbin - Last Filed: 08/24/22 17:00> Patient Disposition: Home, Self-Care <TYREL Durbin - Last Filed: 08/24/22 17:00> Instructions: Heart Palpitations (DC) <TYREL Durbin - Last Filed: 08/24/22 17:00> Additional Instructions: Please follow-up with your primary care physician tomorrow and with your motor block mechanic. Please discuss with your motor block mechanic if a Holter will monitor evaluation would be appropriate for you. If you have any worsening or new symptoms, please return to the emergency room or call 911 <TYREL Durbin - Last Filed: 08/24/22 17:00> Prescriptions: No Action naproxen sodium 220 mg Tablet 220 mg PO BID PRN (Reason: Pain) buspirone 5 mg Tablet 5 mg PO QAM ondansetron HCl [Zofran] 8 mg Tablet 8 mg PO Q12H PRN (Reason: Nausea) melatonin 3 mg Tablet 3 mg PO BEDTIME acyclovir 400 mg Tablet 400 mg PO DAILY acetaminophen 500 mg Tablet 500 mg PO DAILY ketorolac 10 mg tablet 1 tab PO Q6H PRN (Reason: Pain) dicyclomine 20 mg tablet 1 tab PO TID PRN (Reason: Gastrointestinal Spasms Or Cramping) amitriptyline 10 mg Tablet 30 mg PO BEDTIME buspirone 10 mg Tablet 10 mg PO BEDTIME lorazepam 1 mg Tablet 1 mg PO TID PRN (Reason: Anxiety) propranolol 20 mg Tablet 20 mg PO DAILY PRN (Reason: Cardiac Arrhythmia) lysine [L-Lysine] 500 mg Tablet 1,000 mg PO DAILY acetylcarnitine 500 mg Capsule 500 mg PO DAILY cholecalciferol (vitamin D3) [Vitamin D3] 125 mcg (5,000 unit) Tablet 125 mcg PO DAILY bacillus coagulans-inulin 1 billion-250 cell-mg Capsule 1 cap PO DAILY [place] 3 Fish Oil 900-1,400 mg Capsule,Delayed Release(Dr/Ec) 1 cap PO DAILY acetylcysteine 500 mg Capsule 500 mg PO DAILY lamotrigine 100 mg tablet 1 tab PO QAM meclizine [Dramamine Less Drowsy] 25 mg tablet 25 mg PO TID PRN (Reason: dizziness) Qty: 20 0RF <TYREL Durbin - Last Filed: 08/24/22 17:00>
[2022-08-24 13:11] LABS: MANUAL DIFF FLAG NO
--- OUTSIDE RECORDS SUMMARY | 2022-08-24 13:11 | XMS_ITS ---
:1980 Demographics Address [address] [place] [address] Email Address Preferred Language Northern Irish Marital Status Unknown Congregation Affiliation Unknown Race White Ethnic Group Not or Author Organization [facility] Address [address] [place] [address] Support Name Relationship Address Phone DAHIANA CORDOVA Unavailable [address] [place] [address] RUBIN CORDOVA Unavailable [address] [address] Care Team Providers Name Role Phone Doug Castro Unavailable Unavailable PROBLEMS Type Condition ICD9-CM EGQ29-HM Onset Condition SNOMED Cod e Code Code Dates Status Problem GERD K21.9 Active [id number] (gastroesophageal reflux disease) Problem Gastroesophageal K21.9 Active reflux Problem Irritable bowel K58.0 Active 1970 syndrome with diarrhea Problem Abdominal pain, R10.13 Active 7992 2008 acute, epigastric ALLERGIES No Known Allergies ENCOUNTERS Encounter Location Date Diagnosis [facility] [address] [place] [address] Feb, Hiatal hernia K 44.9 ; [place], [place] [phone] Abdominal pain, generalized R10.84 and Gastr oesophageal reflux K21.[address] Feb, [facility] [address] [place] [address] Dec, [facility] [address] [place] [address] November, GERD ([facility] [address] [place], [place] reflux dis ease) K21.9 ; Abdominal [...] BY MOUTH THREE TIMES A DAY NEEDED [place] 3 Active Soluble Fiber Active Melatonin Active [...] presents today forchest pain Insurance Providers [facility] Health Member Patient Patient Patient Patient Patient Subscriber Subscriber Subscriber Group Insurance Plan Plan Plan Plan ID Relationship Address Phone Name Date of ID Name Date of No Type Insurance Insurance Insurance Coverage to Subscriber Address Phone Name Dates [employer] [phone] [employer] self DAHIANA [id number] [facility] [address] [place] [address] Plan [id number]
[2022-08-24 13:15] LABS: Basophils Percent Auto 0.5 % (0-2); Eosinophils Absolute Auto 0.2 X10*3/uL (0.0-0.4); Eosinophils Percent Auto 2.2 % (0-4); Hematocrit 41.5 % (37.0-47.0); Hemoglobin 14.1 g/dl (12.0-16.0); Imm Gran Abs Auto 0.04 X10*3/uL (0.00-0.03); Imm Gran Pct Auto 0.5 % (0.0-0.4); Lymphocytes Absolute Auto 1.9 X10*3/uL (1.2-4.9); Lymphocytes Percent Auto 25.3 % (20-40); Mean Corpuscular Volume 91.2 fL (80.0-98.0); Mean Platelet Volume 8.8 fL (9.4-12.3); Monocytes Absolute Auto 0.5 X10*3/uL (0.1-1.2); Monocytes Percent Auto 7.3 % (2-11); Neutrophils Absolute Auto 4.7 x10*3/uL (2.0-8.3); Neutrophils Percent Auto 64.2 % (45-73); Platelet Count 378 X10*3/uL (160-400); Red Blood Count 4.55 X10*6/uL (4.20-5.50); White Blood Count 7.4 X10*3/uL (4.8-10.8)
[2022-08-24 13:24] VITALS: BP 119/65; PULSE 114; RESP 16; TEMP 36.3; O2SAT 97; BMI 24.5
[2022-08-24 13:47] LABS: Alanine Aminotransferase 12 U/L (0-31); Albumin Level 4.6 g/dL (3.5-5.0); Alkaline Phosphatase 70 U/L (39-117); Anion Gap 13 (12-20); Aspartate Amino Transferase 18 U/L (5-31); Bilirubin Total 0.3 mg/dL (0.0-1.0); Blood Urea Nitrogen 8 mg/dL (9-16); Carbon Dioxide 24 mmol/L (22-29); Chloride 106 mmol/L (96-108); Estimated Glomerular Filt Rate > 60; Glucose Random 125 mg/dL (60-115); Magnesium 2.2 mg/dL (1.6-2.6); Potassium 4.4 mmol/L (3.3-5.1); Sodium 139 mmol/L (135-145); Total Protein 7.2 g/dL (6.5-8.0)
[2022-08-24 13:59] LABS: Troponin-I High Sensitivity < 3.5 ng/L (<3.5-17.0)
[2022-08-24 16:58] VITALS: BP 164/71; PULSE 91; RESP 18; TEMP 36.7; O2SAT 98
[2022-08-24] MEDS: NaPROXEN 500 MG TABLET PO (20:42)
[2022-08-24 20:53] VITALS: BP 133/65; PULSE 82; RESP 18; TEMP 36.8; O2SAT 98
== END 2022-08-24 22:56 | disposition home or self-care (01) ==
PROVIDERS: Physician Assistant; Emergency Provider Emergency Medicine; PCP Nurse Practitioner Family
DX: R00.2 Palpitations (principal); Z79.899 Other long term (current) drug therapy; Z87.891 Personal history of nicotine dependence; F12.90 Cannabis use, unspecified, uncomplicated
CPT/HCPCS: 36415; 80053; 83735; 84484; 85025; 93005; 99283; 99284

== ENCOUNTER 2023-10-17 09:49 | Outpatient (AMB) | payer OTHER, SELFPAY ==
--- NOTE | 2023-10-17 10:20 | A.OFFVIS_ITS ---
Intake Vital Signs 10/17/23 10:27 Height 5 ft 4 in Weight 143 lb BMI 24.5 Intake Visit Reasons: New Pt - lower back pain Intake Note: Sharee is a 43 year old female who presents today as a new patient for a evaluation of her lower back pain. Patient reports ongoing pain has been going on for a couple of years and its been getting worse over the course of 2 years. She informed me that she was told to use heat for her pain, however she has a reaction in her lower back when she applied heat. Patient reports she is here for a second opinion for treatment. Allergies adhesive Allergy (Verified 06/21/22 12:20) Rash Medication List - Last Reconciled 10/17/23 by Noa Welch MD acetaminophen 500 mg PO DAILY acetylcarnitine 500 mg PO DAILY acetylcysteine 500 mg PO DAILY acyclovir 400 mg PO DAILY amitriptyline 30 mg PO BEDTIME Bacillus coagulans-inulin 1 billion-250 cell-mg 1 cap PO DAILY buspirone 5 mg PO QAM buspirone 10 mg PO BEDTIME cholecalciferol (vitamin D3) (Vitamin D3) 125 mcg PO DAILY dicyclomine 1 tab PO TID PRN ketorolac 1 tab PO Q6H PRN lamotrigine 1 tab PO QAM lorazepam 1 mg PO TID PRN lysine (L-Lysine) 1,000 mg PO DAILY meclizine (Dramamine Less Drowsy) 25 mg PO TID PRN melatonin 3 mg PO BEDTIME naproxen sodium 220 mg PO BID PRN omega 5-naj-wbg-fish oil 900-1,400 mg 1 cap PO DAILY ondansetron HCl 8 mg PO Q12H PRN propranolol 20 mg PO DAILY PRN HPI HPI Comments History of Present Illness Details Initial onset 2015, no inciting injury. At that same time she was being treated for Lyme. Told that chronic fatigue syndrome is the reason for leg weakness. Worsened 2 1/2 years, again no inciting injuries/factors at that time. She did fall in 2012 on cement, and a previous fall 2003, did not have pain after those falls. Nowadays, worse right groin, hip and gluteues pain, right worse than left, intermittent; worse with walking/standing/driving/sitting prolonged/lying flat. Burning both on anterior thighs but not below the knees. Left nerve pain , along a path on posterior thigh, and deep left gluteus. No numbness on feet. No foot drop. No weakness outside of pain. No bladder/bowel changes. She brought CD of past MRI which I reviewed, PDFs of past xray, PT notes and notes from Dr. Joya PSS[facility], which I reviewed. 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 Xray did not report movement on flexion/extension views, 7mm. She had PT 4-5 weeks for back pain. Had seen a urogynocologist who said pelvic floors are strong . She is currently on gabapentin prescribed by Dr. Joya; meloxicam by PCP. [facility] Medical History (Updated 10/17/23 @ 11:12 by Noa Welch MD) Spondylolisthesis, lumbar region Groin pain, chronic, left History of substance abuse PFO (patent foramen ovale) RBBB PTSD (post-traumatic stress disorder) Anxiety and depression Encephalomyelitis Chronic fatigue syndrome Interstitial cystitis IBS (irritable bowel syndrome) Surgical History History of lingual frenulectomy Hx of wisdom tooth extraction H/O colonoscopy Social History Patient Tobacco Use Status: Former Tobacco user Tobacco use type: Cigarette Substance Use Type: Marijuana Review of Systems Const All systems reviewed & are unremarkable except as noted in HPI and below Physical Exam Vital Signs: BMI result Body Mass Index 24.5 Constitutional: Patient appears to be in no acute distress, well nourished and well developed. Patient was appropriately conversant and oriented. Good historian. MSK: No specific abnormalities found on inspection of the spine and all extremities. No pain with palpation over the lumbar area. SI joint and GT nontender. Difficulty getting up from seated position. Difficulty getting up on exam table. Difficulty moving while lying down. Uses a cane. Antalgic gait. Lumbar ROM was full despite pain. Bilateral hip, knee and ankle ROM WNL. No ligamentous laxity or crepitance. No increased effusion. Straight-leg raising test negative. FABERE test bilateral cause left hip/groin pain. Gillet test is negative. Preston test is negative. Piriformis test is negative. Strength is 5/5 in all muscle groups tested despite pain. No increased tone noted. Neurological: Neurologic examination of the upper and lower extremities was nonfocal with intact sensation, muscle stretch reflexes and without focal motor deficits . Barrera?s negative bilaterally. Babinski was down going bilaterally. Clonus was negative. Results Reviewed Results Reviewed: As above] Assessment & Plan Assessment & Plan (1) Pelvic floor dysfunction: Code(s): M62.89 - Other specified disorders of muscle (2) Groin pain, chronic, left: Code(s): R10.32 - Left lower quadrant pain; G89.29 - Other chronic pain (3) Spondylolisthesis, lumbar region: Code(s): M43.16 - Spondylolisthesis, lumbar region Plan: Symptoms suggestive to me that she may be having pelvic floor dysfunction. Therefore I will refer her to PT specifically for pelvic floor eval/treatment. No imaging of hips yet. Would do hip xrays today. She does have lumbar spondylolisthesis on xray and MRI, grade 1. Does not have significant pathology on L3-4 area to explain left groin/hip pain. She was asking about non narcotic pain medication. I would refer her to Pain Managment for both medication non narcotic and possible intervention treatment. Referral placed. Assessment and plan discussed with patient, and patient was agreeable. All questions were answered thoroughly. Noa Welch MD, DMITRI Board Certified, [place] [employer] and Rehabilitation (ABPMR) Board Certified, [place] Board of Electrodiagnostic Medicine (ABEM) Plan Pelvic floor therapy also work on SI joints work on core muscles Orders: Orders XR hip RT min 2V Today G89.29 - Other chronic pain, M62.89 - Other specified disorders of muscle, R10.32 - Left lower quadrant pain XR hip LT min 2V Today G89.29 - Other chronic pain, M62.89 - Other specified disorders of muscle, R10.32 - Left lower quadrant pain PT Evaluation and Treatment Today G89.29 - Other chronic pain, M62.89 - Other specified disorders of muscle, R10.32 - Left lower quadrant pain Referrals Pain Management Referral G89.29 - Other chronic pain, M43.16 - Spondylolisthesis, lumbar region, M62.89 - Other specified disorders of muscle, R10.32 - Left lower quadrant pain Coding Level of Care Code New Pt Level 4 (61931) Diagnoses Pelvic floor dysfunction M62.89 Groin pain, chronic, left R10.32; G89.29 Spondylolisthesis, lumbar region M43.16
[2023-10-17 10:27] VITALS: BMI 24.5
== END 2023-10-17 11:40 | disposition home or self-care (01) ==
LOC: HO.HOS 09:49
PROVIDERS: PCP Nurse Practitioner Family; Visit Provider Physical Medicine & Rehabilitation
DX: M62.89 Other specified disorders of muscle (principal); R10.32 Left lower quadrant pain; G89.29 Other chronic pain; M43.16 Spondylolisthesis, lumbar region
CPT/HCPCS: 99204

== ENCOUNTER 2023-10-17 09:49 | Outpatient (REF) | payer OTHER, SELFPAY ==
--- NOTE | ~2023-10-17 | XR_ITS ---
EXAMINATION: 1. RADIOGRAPHS RIGHT HIP 2. RADIOGRAPHS LEFT HIP CLINICAL INFORMATION: Degenerative joint disease COMPARISON: None TECHNIQUE: 2 views of each hip were obtained FINDINGS: Right hip: Visualized portion of proximal right femur demonstrate no fracture. Right femoral head is well-seated within the acetabulum. Right femoral acetabular joint space is well-maintained. No significant degenerative changes of the right hip. Partially visualized IUD projects over the midline pelvis. Left hip: Visualized portion of proximal left femur demonstrate no fracture. Left femoral head is well-seated within the acetabulum. Left femoral acetabular joint space is well-maintained. No appreciable degenerative changes of the left hip. IUD projects are midline pelvis. XR/XR hip LT min 2V IMPRESSION: Unremarkable radiographs of the bilateral hips.
--- NOTE | ~2023-10-17 | XR_ITS ---
EXAMINATION: 1. RADIOGRAPHS RIGHT HIP 2. RADIOGRAPHS LEFT HIP CLINICAL INFORMATION: Degenerative joint disease COMPARISON: None TECHNIQUE: 2 views of each hip were obtained FINDINGS: Right hip: Visualized portion of proximal right femur demonstrate no fracture. Right femoral head is well-seated within the acetabulum. Right femoral acetabular joint space is well-maintained. No significant degenerative changes of the right hip. Partially visualized IUD projects over the midline pelvis. Left hip: Visualized portion of proximal left femur demonstrate no fracture. Left femoral head is well-seated within the acetabulum. Left femoral acetabular joint space is well-maintained. No appreciable degenerative changes of the left hip. IUD projects are midline pelvis. XR/XR hip RT min 2V IMPRESSION: Unremarkable radiographs of the bilateral hips.
== END 2023-10-17 09:50 | disposition home or self-care (01) ==
LOC: HO.HOSX 09:49
PROVIDERS: PCP Nurse Practitioner Family; Visit Provider Physical Medicine & Rehabilitation
DX: M62.89 Other specified disorders of muscle (principal); R10.32 Left lower quadrant pain; G89.29 Other chronic pain; M43.16 Spondylolisthesis, lumbar region; Z79.899 Other long term (current) drug therapy
CPT/HCPCS: 73502; 99202

== ENCOUNTER 2023-10-25 11:23 | Outpatient (AMB) | payer OTHER, SELFPAY ==
[2023-10-25 11:43] VITALS: BP 144/76; PULSE 88; O2SAT 98; BMI 25.1
--- NOTE | 2023-10-25 11:43 | A.OFFVIS_ITS ---
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: No Accompanied by: Self / Same As Patient Allergies adhesive Allergy (Verified 10/25/23 11:45) Rash Medication List - Last Reconciled 10/25/23 by Yisel Panchal, FIELD INSURANCE SALES MANAGER, ROAD [employer]OSS acetaminophen 500 mg PO DAILY acetylcarnitine 500 mg PO DAILY acetylcysteine 500 mg PO DAILY acyclovir 400 mg PO DAILY amitriptyline 30 mg PO BEDTIME Bacillus coagulans-inulin 1 billion-250 cell-mg 1 cap PO DAILY buspirone 5 mg PO QAM buspirone 10 mg PO BEDTIME cholecalciferol (vitamin D3) (Vitamin D3) 125 mcg PO DAILY dicyclomine 1 tab PO TID PRN lamotrigine 1 tab PO QAM lorazepam 1 mg PO TID PRN lysine (L-Lysine) 1,000 mg PO DAILY meclizine (Dramamine Less Drowsy) 25 mg PO TID PRN melatonin 3 mg PO BEDTIME meloxicam 7.5 mg PO DAILY naproxen sodium 220 mg PO BID PRN omega 0-izp-[id number] oil 900-1,400 mg 1 cap PO DAILY ondansetron HCl 8 mg PO Q12H PRN propranolol 20 mg PO DAILY PRN HPI HPI Comments History of Present Illness Details Sharee presented to the office today for evaluation and management of their chronic lower back pain Patient has been suffering with this pain for approximately 8 years, started after an undiagnosed Lyme disease. They suffer from chronic fatigue syndrome, was told in the past to avoid exercise as it will worsen the fatigue. This has led to weakening of the musculature. Had been doing yoga but was told by the spine doctor to discontinue yoga. Pain across lower back with radiation to the groin and down the posterior thighs to the level of the knee. Rated today as a 4/10, constant, worse in the mornings, during the day and in the evenings. Pain is worse with standing, sitting, stairs and doing housework Completed 4 weeks of physical therapy without improvement of her symptoms. Has been doing home exercise program that they find to be painful and not beneficial. Currently taking meloxicam daily with some relief. Has not tried muscle relaxers, chiropractor, acupuncture, massage or injections. Taking gabapentin 600 mg in the morning 900 mg at bedtime, prescribed by doctor at [facility]. Patient has approximately 2 weeks of medication left and has terminated the relationship with that provider. Patient denies red flag symptoms including new loss of bowel, bladder or saddle anesthesia. Patient was evaluated by physiatry and referred here for eval and management. In terms of muscle damage condition is described as aching, stabbing, sharp, dull, cramping Pain is negatively impacting patient's enjoyment of life, general activity, normal work, recreational activities, relationships with people, walking, standing, housework and hygiene [facility] Medical History (Updated 10/25/23 @ 13:06 by Yisel Panchal APRN, ROAD BOSS) Spondylolisthesis, lumbar region Groin pain, chronic, left History of substance abuse PFO (patent foramen ovale) RBBB PTSD (post-traumatic stress disorder) Anxiety and depression Encephalomyelitis Chronic fatigue syndrome Interstitial cystitis IBS (irritable bowel syndrome) Surgical History History of lingual frenulectomy Hx of wisdom tooth extraction H/O colonoscopy Social History Patient Tobacco Use Status: Former Tobacco user Tobacco use type: Cigarette Substance Use Type: Marijuana Review of Systems Const All systems reviewed & are unremarkable except as noted in HPI and below Physical Exam Vital Signs: Last Vital Signs Pulse 88 10/25/23 11:43 BP 144/76 H 10/25/23 11:43 Pulse Ox 98 10/25/23 11:43 Oxygen Delivery Method Room Air 10/25/23 11:43 BMI result Body Mass Index 25.1 General: awake, alert, oriented. Answers questions appropriately. Fully engaged in examination. Skin: warm, dry, intact HEENT: Normocephalic. Hearing intact. Cardiac: External chest normal in appearance. Respiratory: No cough, audible wheezing or stridor. Abdomen: without gross distension. MS: No obvious swelling or deformities. Able to stand on bilateral tiptoes and bilateral heels.? Able to transition from sit to stand unassisted. Ambulates with bilaterally normal heel strike and toe off ROM: full flexion, extension to 10 degrees with pain increase TTP over bilateral PSIS Thigh thrust positive bilaterally [place] positive bilaterally SI compression positive bilaterally SLR with dorsiflexion neg bilaterally Neurological: Oriented to person, place, time and situation. Thought process intact. Psychiatric: Appropriate mood and affect. Good judgment and insight. Results Reviewed Results Reviewed: 10/17/23 XR/XR hip LT min 2V Right hip: Visualized portion of proximal right femur demonstrate no fracture. Right femoral head is well-seated within the acetabulum. Right femoral acetabular joint space is well-maintained. No significant degenerative changes of the right hip. Partially visualized IUD projects over the midline pelvis. Left hip: Visualized portion of proximal left femur demonstrate no fracture. Left femoral head is well-seated within the acetabulum. Left femoral acetabular joint space is well-maintained. No appreciable degenerative changes of the left hip. IUD projects are midline pelvis. IMPRESSION: Unremarkable radiographs of the bilateral hips. Assessment & Plan Assessment & Plan (1) Sacroiliac joint dysfunction of both sides: Code(s): M53.3 - Sacrococcygeal disorders, not elsewhere classified Plan Sharee is a very pleasant 43-year-old female who presented to the office today for evaluation management of her chronic lower back History, physical exam and provocative testing consistent with bilateral sacroiliac joint dysfunction Patient has exhausted conservative therapy including greater than 6 months PT, home exercise program, nonsteroidal anti-inflammatory medications and heat without resolution of their symptoms Discussed at length patient's diagnosis and options for treatment. Will increase the gabapentin to 600 mg 3 times daily Methocarbamol 500 mg p.o. t.i.d. as needed Will schedule for bilateral diagnostic fluoroscopy guided sacroiliac joint injections with local anesthetic. Patient suffers from procedural anxiety, they will require p.o. Ativan before all procedures. All questions and concerns were answered, patient agrees to the plan. Follow-up after injections, sooner if needed Medications: New gabapentin 600 mg PO TID 90 tabs 3RF methocarbamol No driving while taking this medication. Do no take with alcohol or other PATTERN MECHANIC Depressants 500 mg PO TID PRN 90 tabs 1RF muscle spasm Coding Level of Care Code New Pt Level 4 (53819) Diagnoses Sacroiliac joint dysfunction of both sides M53.3
== END 2023-10-25 12:45 | disposition home or self-care (01) ==
PROVIDERS: PCP Nurse Practitioner Family; Visit Provider Registered Nurse Emergency
DX: M53.3 Sacrococcygeal disorders, not elsewhere classified (principal)
CPT/HCPCS: 99204

== ENCOUNTER → 2023-10-25 11:23 | Outpatient (BNVA) | payer OTHER, SELFPAY | PROVIDERS: PCP Nurse Practitioner Family; Visit Provider Registered Nurse Emergency | DX: M53.3 Sacrococcygeal disorders, not elsewhere classified (principal) | CPT/HCPCS: 99202 ==

== ENCOUNTER 2023-11-27 07:00 | Outpatient (REF) | payer OTHER, SELFPAY ==
--- NOTE | ~2023-11-27 | FL_ITS ---
EXAMINATION: XR FLUOROSCOPY WITH IMAGES CLINICAL INFORMATION: Sacrococcygeal disorder. COMPARISON: None available. TECHNIQUE: Fluoroscopy Supervised By: Dr. Aubrey Casanova. Fluoroscopy Time: 0.2 minutes. Cumulative Dose: 1.82 mGy. DAP: 0.0316 Gy-cm2. Images: 2. FINDINGS: Intraoperative fluoroscopy and spot films were performed during a procedure in the OR. Spinal needle seen overlying each SI joint with contrast injected within the joint. Please see Dr. Aubrey Casanova's report for complete details. FL/FL guidance in treatment room IMPRESSION: Intraoperative fluoroscopy and spot films were obtained. Please see Dr. Aubrey Casanova's report for complete details.
== END 2023-11-27 07:01 | disposition home or self-care (01) ==
LOC: CF 07:00
PROVIDERS: PCP Nurse Practitioner Family; Visit Provider Anesthesiology
DX: M53.3 Sacrococcygeal disorders, not elsewhere classified (principal)
CPT/HCPCS: 27096; J2795; Q9967

== ENCOUNTER 2023-11-27 12:52 | Outpatient (AMB) | payer OTHER, SELFPAY ==
--- NOTE | 2023-11-27 12:56 | MHC.OFFVIS ---
Vital Signs 11/27/23 13:48 11/27/23 13:49 Height 5 ft 4 in Weight 146 lb BMI 25.1 BP 102/68 110/72 Blood Pressure Location Lt brachial Lt brachial Position Sitting Sitting Respiration 18 Pulse 88 Pulse Source Pulse Oximeter Pulse Oximetry (%) 97 Oxygen Delivery Method Room Air Comment Pre-Op Post-Op Intake Visit Reasons: BILATERAL DIAGNOSTIC SIJ INJECTIONS Allergies adhesive Allergy (Verified 10/25/23 11:45) Rash [facility] Medical History (Updated 10/25/23 @ 13:06 by Yisel Panchal APRN, POLITICAL CONSULTANT) Spondylolisthesis, lumbar region Groin pain, chronic, left History of substance abuse PFO (patent foramen ovale) RBBB PTSD (post-traumatic stress disorder) Anxiety and depression Encephalomyelitis Chronic fatigue syndrome Interstitial cystitis IBS (irritable bowel syndrome) Surgical History History of lingual frenulectomy Hx of wisdom tooth extraction H/O colonoscopy Social History Patient Tobacco Use Status: Former Tobacco user Tobacco use type: Cigarette Substance Use Type: Marijuana Physical Exam Vital Signs: Last Vital Signs Pulse 88 11/27/23 13:48 Resp 18 11/27/23 13:48 BP 110/72 11/27/23 13:49 Pulse Ox 97 11/27/23 13:48 Oxygen Delivery Method Room Air 11/27/23 13:48 BMI result Body Mass Index 25.1 Assessment & Plan Assessment & Plan (1) Sacroiliac joint dysfunction of both sides: Code(s): M53.3 - Sacrococcygeal disorders, not elsewhere classified Category: Medical Plan: Bilateral diagnostic sacroiliac joint injection. Informed consent was explained thoroughly to the patient. All questions about benefits and risks for the procedure were answered. Patient came to the operating room and was positioned prone on the operating table with the pillow under the pelvis. Time out was performed delineating name and of the patient, allergies and the nature of the procedure. The lower back and buttocks of the patient were prepped with ChloraPrep prepped and draped with sterile utility towels. C-arm was brought over the operating field and sq picture of patient's pelvis was demonstrated on the screen. For the right joint tilting C-arm contralateral to the site of the joint the most posterior portion of the joints was superimposed with anterior silhouette of the joint. Skin was injected in the projection of the joint slightly medial to the location of the joint with 25 gauge 1/2 inch needle using local lidocaine 2% .After that 22 gauge 3 and 1/2 inch needle was driven to the right joint in tunnel vision fashion. When needle entered the joint capsule injection of the contrast was performed demonstrating intra-articular and minimally periarticular spread of the contrast. After that 4 cc. of ropivacaine 0.5% was injected into the joint. After that attention was concentrated on the left side where the injections was performed on the left sacroiliac joint in mirroring fashion. Upon completion of the injections the needle was removed Sterile dressing was applied. Upon completion of the injection patient was taken outside of the operating room to the recovery room where she recovered uneventfully. Meño Tolliver is a very pleasant 43-year-old female who presented to the office today for evaluation management of her chronic lower back History, physical exam and provocative testing consistent with bilateral sacroiliac joint dysfunction Patient has exhausted conservative therapy including greater than 6 months PT, home exercise program, nonsteroidal anti-inflammatory medications and heat without resolution of their symptoms Discussed at length patient's diagnosis and options for treatment. Will increase the gabapentin to 600 mg 3 times daily Methocarbamol 500 mg p.o. t.i.d. as needed Will schedule for bilateral diagnostic fluoroscopy guided sacroiliac joint injections with local anesthetic. Patient suffers from procedural anxiety, they will require p.o. Ativan before all procedures. All questions and concerns were answered, patient agrees to the plan. Follow-up after injections, sooner if needed Orders: Orders FL guidance in treatment room Today M53.3 - Sacrococcygeal disorders, not elsewhere classified Coding Level of Care Code Procedure Only Diagnoses Sacroiliac joint dysfunction of both sides M53.3
[2023-11-27 13:48] VITALS: BP 102/68; PULSE 88; RESP 18; O2SAT 97; BMI 25.1
[2023-11-27 13:49] VITALS: BP 110/72
== END 2023-11-27 13:37 | disposition home or self-care (01) ==
LOC: HO.PMCPRC 12:52
PROVIDERS: PCP Nurse Practitioner Family; Visit Provider Anesthesiology
DX: M53.3 Sacrococcygeal disorders, not elsewhere classified (principal)
CPT/HCPCS: 27096

== ENCOUNTER 2023-11-30 11:40 | Outpatient (AMB) | payer OTHER, SELFPAY ==
--- NOTE | 2023-11-30 11:43 | MHC.OFFVIS ---
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 They report 95% relief of pain with improvement in function mobility. Pain today is rated as a 0.5/10. After the procedure they were able to back, very dire apartment, climb up and down stairs, decrease the use of meloxicam and heat. Thery're currently able to ambulate without walker or cane due to the the improvement in pain since the diagnostic procedure. Patient has SI belt, has not been using because they did not know if it would be beneficial. Prior: Sharee presented to the office today for evaluation and management of their chronic lower back pain Patient has been suffering with this pain for approximately 8 years, started after an undiagnosed Lyme disease. They suffer from chronic fatigue syndrome, was told in the past to avoid exercise as it will worsen the fatigue. This has led to weakening of the musculature. Had been doing yoga but was told by the spine doctor to discontinue yoga. Pain across lower back with radiation to the groin and down the posterior thighs to the level of the knee. Rated today as a 4/10, constant, worse in the mornings, during the day and in the evenings. Pain is worse with standing, sitting, stairs and doing housework Completed 4 weeks of physical therapy without improvement of her symptoms. Has been doing home exercise program that they find to be painful and not beneficial. Currently taking meloxicam daily with some relief. Has not tried muscle relaxers, chiropractor, acupuncture, massage or injections. Taking gabapentin 600 mg in the morning 900 mg at bedtime, prescribed by doctor at [facility]. Patient has approximately 2 weeks of medication left and has terminated the relationship with that provider. Patient denies red flag symptoms including new loss of bowel, bladder or saddle anesthesia. Patient was evaluated by physiatry and referred here for eval and management. In terms of muscle damage condition is described as aching, stabbing, sharp, dull, cramping Pain is negatively impacting patient's enjoyment of life, general activity, normal work, recreational activities, relationships with people, walking, standing, housework and hygiene [facility] Medical History (Updated 11/30/23 @ 12:03 by Trish eWlch) Recurrent genital herpes Common variable agammaglobulinemia Borderline personality disorder Vitamin D deficiency Gender dysphoria Spondylolisthesis, lumbar region Groin pain, chronic, left History of substance abuse PFO (patent foramen ovale) RBBB PTSD (post-traumatic stress disorder) Anxiety and depression Encephalomyelitis Chronic fatigue syndrome Interstitial cystitis IBS (irritable bowel syndrome) Surgical History History of lingual frenulectomy Hx of wisdom tooth extraction H/O colonoscopy Social History Patient Tobacco Use Status: Former Tobacco user Tobacco use type: Cigarette Substance Use Type: Marijuana Review of Systems Const All systems reviewed & are unremarkable except as noted in HPI and below Physical Exam Vital Signs: Last Vital Signs Pulse 77 11/30/23 11:46 BP 120/61 11/30/23 11:46 Pulse Ox 98 11/30/23 11:46 Oxygen Delivery Method Room Air 11/30/23 11:46 BMI result Body Mass Index 25.1 General: awake, alert, oriented. Answers questions appropriately. Fully engaged in examination. Skin: warm, dry, intact HEENT: Normocephalic. Hearing intact. Cardiac: External chest normal in appearance. Respiratory: No cough, audible wheezing or stridor. Abdomen: without gross distension. MS: No obvious swelling or deformities. Able to transition from sit to stand unassisted. Ambulates with bilaterally normal heel strike and toe off Neurological: Oriented to person, place, time and situation. Thought process intact. Psychiatric: Appropriate mood and affect. Good judgment and insight. Results Reviewed Results Reviewed: 10/17/23 XR/XR hip LT min 2V Right hip: Visualized portion of proximal right femur demonstrate no fracture. Right femoral head is well-seated within the acetabulum. Right femoral acetabular joint space is well-maintained. No significant degenerative changes of the right hip. Partially visualized IUD projects over the midline pelvis. Left hip: Visualized portion of proximal left femur demonstrate no fracture. Left femoral head is well-seated within the acetabulum. Left femoral acetabular joint space is well-maintained. No appreciable degenerative changes of the left hip. IUD projects are midline pelvis. IMPRESSION: Unremarkable radiographs of the bilateral hips. Assessment & Plan Assessment & Plan (1) Sacroiliac joint dysfunction of both sides: Code(s): M53.3 - Sacrococcygeal disorders, not elsewhere classified Category: Medical Plan Sharee presented back to the office today for follow-up, today status post bilateral diagnostic sacroiliac joint injections They report 95% pain relief with improvement in functional mobility since the procedure. Advised on use of SI belt, use as directed C/W gabapentin 600 mg 3 times daily C/W Methocarbamol 500 mg p.o. t.i.d. as needed Will schedule for bilateral therapeutic fluoroscopy guided sacroiliac joint injections with local anesthetic. She will let us know if she needs Ativan prior to the procedure. All questions and concerns were answered, patient agrees to the plan. Follow-up after injections, sooner if needed Coding Level of Care Code Est Pt Level 3 (34729) Diagnoses Sacroiliac joint dysfunction of both sides M53.3
[2023-11-30 11:46] VITALS: BP 120/61; PULSE 77; O2SAT 98; BMI 25.1
== END 2023-11-30 12:40 | disposition home or self-care (01) ==
PROVIDERS: PCP Nurse Practitioner Family; Visit Provider Registered Nurse Emergency
DX: M53.3 Sacrococcygeal disorders, not elsewhere classified (principal)
CPT/HCPCS: 99213

== ENCOUNTER → 2023-11-30 11:40 | Outpatient (BNVA) | payer OTHER, SELFPAY | PROVIDERS: PCP Nurse Practitioner Family; Visit Provider Registered Nurse Emergency | DX: M53.3 Sacrococcygeal disorders, not elsewhere classified (principal) | CPT/HCPCS: 99212 ==

== ENCOUNTER 2024-01-22 06:15 | Outpatient (REF) | payer OTHER, SELFPAY ==
--- NOTE | ~2024-01-22 | FL_ITS ---
EXAMINATION: XR FLUOROSCOPY WITH IMAGES CLINICAL INFORMATION: Sacrococcygeal disorders. COMPARISON: None available. TECHNIQUE: Fluoroscopy Supervised By: Dr. Aubrey Casanova. Fluoroscopy Time: 0.2 minutes. Cumulative Dose: 2 mGy. DAP: 0.0284 Gycm2. Images: 2. FINDINGS: Intraoperative fluoroscopy and spot films were performed during a procedure in the OR. A spinal needle is seen overlying the region of the right SI joint with contrast media seen around its tip. Please correlate with Dr. Casanova's report for complete details. FL/FL guidance in treatment room IMPRESSION: Intraoperative fluoroscopy and spot films were obtained. Please see Dr. Casanova's report for complete details.
== END 2024-01-22 06:16 | disposition home or self-care (01) ==
LOC: CF 06:15
PROVIDERS: Visit Provider Anesthesiology
DX: M53.3 Sacrococcygeal disorders, not elsewhere classified (principal)
CPT/HCPCS: 27096; J2795; J3301; Q9967

== ENCOUNTER 2024-01-22 12:52 | Outpatient (AMB) | payer OTHER, SELFPAY ==
--- NOTE | 2024-01-22 12:57 | A.OFFVIS_ITS ---
Vital Signs 01/22/24 14:08 01/22/24 14:09 Height 5 ft 4 in 5 ft 4 in Weight 146 lb 146 lb BMI 25.1 25.1 BP 126/60 119/66 Blood Pressure Location Lt brachial Lt brachial Position Sitting Sitting Respiration 14 14 Pulse 74 62 Pulse Source Pulse Oximeter Pulse Oximeter Pulse Oximetry (%) 97 98 Oxygen Delivery Method Room Air Room Air Comment pre-op post-op Intake Visit Reasons: SIJ Therapeutic injections Bilateral Allergies propranolol Allergy (Unknown, Verified 01/22/24 14:10) tinnitus adhesive Allergy (Verified 01/22/24 14:10) Rash PFSH Medical History (Updated 11/30/23 @ 12:03 by Trish Welch) Recurrent genital herpes Common variable agammaglobulinemia Borderline personality disorder Vitamin D deficiency Gender dysphoria Spondylolisthesis, lumbar region Groin pain, chronic, left History of substance abuse PFO (patent foramen ovale) RBBB PTSD (post-traumatic stress disorder) Anxiety and depression Encephalomyelitis Chronic fatigue syndrome Interstitial cystitis IBS (irritable bowel syndrome) Surgical History History of lingual frenulectomy Hx of wisdom tooth extraction H/O colonoscopy Social History Patient Tobacco Use Status: Former Tobacco user Tobacco use type: Cigarette Substance Use Type: Marijuana Physical Exam Vital Signs: Last Vital Signs Pulse 62 01/22/24 14:09 Resp 14 01/22/24 14:09 BP 119/66 01/22/24 14:09 Pulse Ox 98 01/22/24 14:09 Oxygen Delivery Method Room Air 01/22/24 14:09 BMI result Body Mass Index 25.1 Assessment & Plan Assessment & Plan (1) Sacroiliac joint dysfunction of both sides: Code(s): M53.3 - Sacrococcygeal disorders, not elsewhere classified Category: Medical Plan: Bilateral therapeutic Sacroiliac joint injection Informed consent was explained thoroughly to the patient.? All questions about benefits and risks for the procedure were answered. Patient came to the operating room and was positioned prone on the operating table with the pillow under the pelvis.? The lower back and buttocks of the patient were prepped with ChloraPrep prepped and draped with sterile utility towels.? Sterilely draped C-arm was brought over the operating field and sq picture of patient's pelvis was demonstrated on the screen.? For each joint tilting C-arm contralateral to the site of the joint the most posterior portion of the joints was superimposed with anterior silhouette of the joint.? Skin was injected in the projection of the joint slightly medial to the location of the joint with 25 gauge 1/2 inch needle using local lidocaine 2% . After that 22 gauge 3 and 1/2 inch needle was driven to the right and the left joint in tunnel vision fashion.? When needle entered the joint capsule injection of the contrast was performed demonstrating intra-articular and minimally periarticular spread of the contrast.? After that 4 cc. of ropivacaine 0.5% mixed with Kenalog 40 mg was injected into each joint.? Total dose of Kenalog was 80 mg. Upon completion of the injections the needles were removed and Band- Aid was applied.? Upon completion of the injection patient was taken outside of the operating room to the recovery room where recovered uneventfully. Orders: Orders FL guidance in treatment room 01/22/24 M53.3 - Sacrococcygeal disorders, not elsewhere classified Coding Level of Care Code Procedure Only Diagnoses Sacroiliac joint dysfunction of both sides M53.3
[2024-01-22 14:08] VITALS: BP 126/60; PULSE 74; RESP 14; O2SAT 97; BMI 25.1
[2024-01-22 14:09] VITALS: BP 119/66; PULSE 62; RESP 14; O2SAT 98; BMI 25.1
== END 2024-01-22 13:48 | disposition home or self-care (01) ==
LOC: HO.PMCPRC 12:52
PROVIDERS: PCP Internal Medicine; Visit Provider Anesthesiology
DX: M53.3 Sacrococcygeal disorders, not elsewhere classified (principal)
CPT/HCPCS: 27096

== ENCOUNTER 2024-01-23 10:08 | Outpatient (AMB) | payer OTHER, SELFPAY ==
[2024-01-23 10:16] VITALS: BMI 25.1
--- NOTE | 2024-01-23 10:16 | A.OFFVIS_ITS ---
Vital Signs 01/23/24 10:16 Height 5 ft 4 in Weight 146 lb BMI 25.1 Intake Visit Reasons: OV - Lower Back/Pelvic Floor 3Month f/u Intake Note: Sharee is a 43 year old female who presents to the office today for a 3month follow up for Lower Back/Pelvic Floor. Patients X-rays were updated at last visit 10/17/23. Pt is currently being seen by Pain management as well who determ ined her symptoms are coming from her SI joint, Last SIJ injection was 01/22/24. Patient reports that she had xrays done and has not heard anyhting about this. She explains that she has not yet been contacted for Pelvic floor PT. She explains that she is out of PTO time, she needs DMFLA filled out and is asking about this. She is looking to have Intermittent leave to accommodate her for Pain Mgmt injections, physical therapy, and Accounting Consultant appointments. She explains that she was told her paperwork would be filled out today and later was told that it takes 5-10 days to be filled out and is frusterated with this. FMLA? Allergies adhesive Allergy (Verified 01/23/24 10:24) Rash HPI Comments Details: First seen on 10/17/2023- Initial onset 2015, no inciting injury. At that same time she was being treated for Lyme. Told that chronic fatigue syndrome is the reason for leg weakness. Worsened 2 1/2 years, again no inciting injuries/factors at that time. She did fall in 2012 on cement, and a previous fall 2003, did not have pain after those falls. Nowadays, worse right groin, hip and gluteues pain, right worse than left, intermittent; worse with walking/standing/driving/sitting prolonged/lying flat. Burning both on anterior thighs but not below the knees. Left nerve pain , along a path on posterior thigh, and deep left gluteus. No numbness on feet. No foot drop. No weakness outside of pain. No bladder/bowel changes. She brought CD of past MRI which I reviewed, PDFs of past xray, PT notes and notes from Dr. Joya [facility]SS[facility], which I reviewed. 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 Xray did not report movement on flexion/extension views, 7mm. She had PT 4-5 weeks for back pain. Had seen a urogynocologist who said pelvic floors are strong . She is currently on gabapentin prescribed by Dr. Joya; meloxicam by PCP. Since last time I saw her, patient has gone to pain management. Seen by Yisel Panchal NP and has had injections with Dr. Casanova. She was prescribed with gabapentin and methocarbamol according to their notes. She had diagnostic bi lateral SI joint injections on 11/27/2023, and therapeutic bilateral SI joint injections yesterday 01/22/2024. Patient says she does not have her usual pain today. She is a bit sore from the injection. Overall only 4/10. Able to drive better today. She has follow up with pain management on 02/15/2024. She has not gone to physical therapy/pelvic floor therapy. There has been back and forth phone calls regarding this. Our department has made several phone calls to patient and physical therapy to facilitate. Patient says she has not received a phone call or has not been scheduled specifically for pelvic floor therapy. We have explained to her that she needs to be evaluated 1st by Department of PT, then she will be scheduled with pelvic floor therapy as appropriate. Hip x-rays were unremarkable, without signs of joint space loss. Again portal message and phone calls were made back in October regarding the results. Results discussed today with patient. Overall she says that she has been doing core and lumbar strengthening. She is feeling less fatigued. She feels her SI joints are better. She denies anymore back pain. [facility] Medical History Recurrent genital herpes Common variable agammaglobulinemia Borderline personality disorder Vitamin D deficiency Gender dysphoria Spondylolisthesis, lumbar region Groin pain, chronic, left History of substance abuse PFO (patent foramen ovale) RBBB PTSD (post-traumatic stress disorder) Anxiety and depression Encephalomyelitis Chronic fatigue syndrome Interstitial cystitis IBS (irritable bowel syndrome) Surgical History History of lingual frenulectomy Hx of wisdom tooth extraction H/O colonoscopy Social History Patient Tobacco Use Status: Former Tobacco user Tobacco use type: Cigarette Substance Use Type: Marijuana Physical Exam Vital Signs: BMI result Body Mass Index 25.1 Constitutional: Patient appears to be in no acute distress, well nourished and well developed. Patient was appropriately conversant and oriented. Good historian. MSK: No specific abnormalities found on inspection of the spine and all extremities. There was no tenderness today on SI joints, greater trochanters or lower lumbar, or quadratus lumborum. 5/5 strength in both lower extremities, no footdrop, though some give-way weakness on hip flexion. Neurological: Nonfocal. Normal gait. Results Reviewed Results Reviewed: Ordering Physician: Noa Lockhart Date of Service: 10/17/23 Procedure(s): XR hip LT min 2V Accession Number(s): [id number] cc: Noa Lockhart; YAAKOV SPENCER~ EXAMINATION: 1. RADIOGRAPHS RIGHT HIP 2. RADIOGRAPHS LEFT HIP CLINICAL INFORMATION: Degenerative joint disease COMPARISON: None TECHNIQUE: 2 views of each hip were obtained FINDINGS: Right hip: Visualized portion of proximal right femur demonstrate no fracture. Right femoral head is well-seated within the acetabulum. Right femoral acetabular joint space is well-maintained. No significant degenerative changes of the right hip. Partially visualized IUD projects over the midline pelvis. Left hip: Visualized portion of proximal left femur demonstrate no fracture. Left femoral head is well-seated within the acetabulum. Left femoral acetabular joint space is well-maintained. No appreciable degenerative changes of the left hip. IUD projects are midline pelvis. XR/XR hip LT min 2V IMPRESSION: Unremarkable radiographs of the bilateral hips. Assessment & Plan Assessment & Plan (1) Sacroiliac joint dysfunction of both sides: Code(s): M53.3 - Sacrococcygeal disorders, not elsewhere classified Category: Medical (2) Pelvic floor dysfunction: Code(s): M62.89 - Other specified disorders of muscle Category: Medical Plan SI joint pain is improved, status post both diagnostic and therapeutic injections by pain management. She will continue to follow up with them for this. Hip x-rays unremarkable. No indication for hip injections at this time. We still want to explore if she could get benefit from pelvic floor therapy. Again our department is assisting/facilitating this so that she would be scheduled for the evaluation as soon as possible. She requested that I fill up [facility] papers, for intermittent leave, to cover appointments and days that she has pain. I am agreeable to filling up the forms as it pertains to the care our department has given. Any other treatment/a ppointments given by pain management, if needs to be covered, will be deferred to them or PCP. Assessment and plan discussed with patient, and patient was agreeable. All questions were answered thoroughly. Total of 45 minutes spent today including chart review, results review, history taking, physical examination, discussion of assessment and plan, and coordination of care. Noa Welch MD, DMITRI Board Certified, [place] Board [employer] and Rehabilitation (ABPMR) Board Certified, [place] Board of Electrodiagnostic Medicine (ABEM) Coding Level of Care Code Est Pt Level 4 (43246) Diagnoses Sacroiliac joint dysfunction of both sides M53.3 Pelvic floor dysfunction M62.89
== END 2024-01-23 11:07 | disposition home or self-care (01) ==
PROVIDERS: PCP Nurse Practitioner Family; Visit Provider Physical Medicine & Rehabilitation
DX: M53.3 Sacrococcygeal disorders, not elsewhere classified (principal); M62.89 Other specified disorders of muscle
CPT/HCPCS: 99214

== ENCOUNTER → 2024-01-23 10:08 | Outpatient (BNVA) | payer OTHER, SELFPAY | PROVIDERS: PCP Nurse Practitioner Family; Visit Provider Physical Medicine & Rehabilitation | DX: M53.3 Sacrococcygeal disorders, not elsewhere classified (principal); M62.89 Other specified disorders of muscle | CPT/HCPCS: 99212 ==

== ENCOUNTER 2024-02-15 12:52 | Outpatient (AMB) | payer OTHER, SELFPAY ==
--- NOTE | 2024-02-15 12:59 | A.OFFVIS_ITS ---
Vital Signs 02/15/24 13:02 Height 5 ft 4 in Weight 138 lb BMI 23.7 BP 117/68 Blood Pressure Location Lt brachial Position Sitting Pulse 68 Pulse Source Pulse Oximeter Pulse Oximetry (%) 98 Oxygen Delivery Method Room Air Intake Visit Reasons: BILATERAL THERAPEUTIC SIJ INJECTIONS Intake Note: Pain today 1/10 [place] [employer] Machine Operator Required: No Accompanied by: Self / Same As Patient Allergies adhesive Allergy (Verified 02/15/24 13:03) Rash HPI Comments Details: Sharee presents back to the office today for follow-up, one-week status post bilateral therapeutic sacroiliac joint injections performed 01/22/2024 Pain today is rated as a 1/10 Reports 95% pain relief with improvement in functional mobility Is now able to clean the house, carry their groceries and otherwise be more active since the injections Denies any untoward effects of the injection Prior: Sharee presents back to the office today for follow-up, 2 days status post bilateral diagnostic sacroiliac joint injections. They report 95% relief of pain with improvement in function mobility. Pain today is rated as a 0.5/10. After the procedure they were able to back, very dire apartment, climb up and down stairs, decrease the use of meloxicam and heat. Thery're currently able to ambulate without walker or cane due to the the improvement in pain since the diagnostic procedure. Patient has SI belt, has not been using because they did not know if it would be beneficial. Prior: Sharee presented to the office today for evaluation and management of their chronic lower back pain Patient has been suffering with this pain for approximately 8 years, started after an undiagnosed Lyme disease. They suffer from chronic fatigue syndrome, was told in the past to avoid exercise as it will worsen the fatigue. This has led to weakening of the musculature. Had been doing yoga but was told by the spine doctor to discontinue yoga. Pain across lower back with radiation to the groin and down the posterior thighs to the level of the knee. Rated today as a 4/10, constant, worse in the mornings, during the day and in the evenings. Pain is worse with standing, sitting, stairs and doing housework Completed 4 weeks of physical therapy without improvement of her symptoms. Has been doing home exercise program that they find to be painful and not beneficial. Currently taking meloxicam daily with some relief. Has not tried muscle relaxers, chiropractor, acupuncture, massage or injections. Taking gabapentin 600 mg in the morning 900 mg at bedtime, prescribed by doctor at [facility]. Patient has approximately 2 weeks of medication left and has terminated the relationship with that provider. Patient denies red flag symptoms including new loss of bowel, bladder or saddle anesthesia. Patient was evaluated by physiatry and referred here for eval and management. In terms of muscle damage condition is described as aching, stabbing, sharp, dull, cramping Pain is negatively impacting patient's enjoyment of life, general activity, normal work, recreational activities, relationships with people, walking, standing, housework and hygiene [facility], [facility] Medical History Recurrent genital herpes Common variable agammaglobulinemia Borderline personality disorder Vitamin D deficiency Gender dysphoria Spondylolisthesis, lumbar region Groin pain, chronic, left History of substance abuse PFO (patent foramen ovale) RBBB PTSD (post-traumatic stress disorder) Anxiety and depression Encephalomyelitis Chronic fatigue syndrome Interstitial cystitis IBS (irritable bowel syndrome) Surgical History History of lingual frenulectomy Hx of wisdom tooth extraction H/O colonoscopy Social History Patient Tobacco Use Status: Former Tobacco user Tobacco use type: Cigarette Substance Use Type: Marijuana Review of Systems Const All systems reviewed & are unremarkable except as noted in HPI and below Physical Exam Vital Signs: Last Vital Signs Pulse 68 02/15/24 13:02 BP 117/68 02/15/24 13:02 Pulse Ox 98 02/15/24 13:02 Oxygen Delivery Method Room Air 02/15/24 13:02 BMI result Body Mass Index 23.7 General: awake, alert, oriented. Answers questions appropriately. Fully engaged in examination. Skin: warm, dry, intact HEENT: Normocephalic. Hearing intact. Cardiac: External chest normal in appearance. Respiratory: No cough, audible wheezing or stridor. Abdomen: without gross distension. MS: No obvious swelling or deformities. Able to transition from sit to stand unassisted. Ambulates with bilaterally normal heel strike and toe off Neurological: Oriented to person, place, time and situation. Thought process intact. Psychiatric: Appropriate mood and affect. Good judgment and insight. Results Reviewed Results Reviewed: 10/17/23 XR/XR hip LT min 2V Right hip: Visualized portion of proximal right femur demonstrate no fracture. Right femoral head is well-seated within the acetabulum. Right femoral acetabular joint space is well-maintained. No significant degenerative changes of the right hip. Partially visualized IUD projects over the midline pelvis. Left hip: Visualized portion of proximal left femur demonstrate no fracture. Left femoral head is well-seated within the acetabulum. Left femoral acetabular joint space is well-maintained. No appreciable degenerative changes of the left hip. IUD projects are midline pelvis. IMPRESSION: Unremarkable radiographs of the bilateral hips. Assessment & Plan Assessment & Plan (1) Sacroiliac joint dysfunction of both sides: Code(s): M53.3 - Sacrococcygeal disorders, not elsewhere classified Category: Medical Plan Sharee presented back to the office today for follow-up, status post bilateral th erapeutic sacroiliac joint injections performed 01/22/2024 They report 95% pain relief with improvement in functional mobility since the procedure. Pain today is rated as a 1/10. Continue with SI belt as needed C/W gabapentin 600 mg 3 times daily C/W Methocarbamol 500 mg p.o. t.i.d. as needed Continue with meloxicam daily as needed All questions and concerns were answered, patient agrees to the plan. Follow-up when pain returns, sooner if needed Coding Level of Care Code Est Pt Level 3 (83635) Diagnoses Sacroiliac joint dysfunction of both sides M53.3
[2024-02-15 13:02] VITALS: BP 117/68; PULSE 68; O2SAT 98; BMI 23.7
== END 2024-02-15 13:27 | disposition home or self-care (01) ==
PROVIDERS: PCP Internal Medicine; Visit Provider Registered Nurse Emergency
DX: M53.3 Sacrococcygeal disorders, not elsewhere classified (principal)
CPT/HCPCS: 99213

== ENCOUNTER → 2024-02-15 12:52 | Outpatient (BNVA) | payer OTHER, SELFPAY | PROVIDERS: PCP Internal Medicine; Visit Provider Registered Nurse Emergency | DX: M53.3 Sacrococcygeal disorders, not elsewhere classified (principal) | CPT/HCPCS: 99212 ==

== ENCOUNTER 2024-05-16 10:00 | Outpatient (RCR) | payer OTHER, SELFPAY ==
--- NOTE | 2024-03-11 14:18 | MHC.PT.EP ---
[facility] [place] Office [place] [facility] [place] Office [address] [phone] F: [phone] F: [phone] F: [phone] F: [phone] Physical Therapy Plan of Care Date of Evaluation: 03/07/24 Date of Surgery: N/A Diagnosis: pelvic floor, lower quadrant pain (RL) they/them pronouns Assessment: pt is a 44 y/o female presenting to physical therapy w/ referring diagnosis of pelvic floor, lower quadrant pain. At this time they are experiencing mostly SI joint symptoms. We will focus on an orthopedic approach for SI joint pain first and then assess appropriateness for pelvic floor intervention at a later time. Impairments include pain, decreased range of motion, decreased strength, impaired functional mobility, impaired postural awareness, and altered ambulation mechanics. pt is a good candidate for skilled PT due to age, potential remediation of impairments, typical disease/condition progression and prognosis, comorbidities, and motivation. pt would benefit from skilled PT intervention to provide a tailored strengthening and stretching exercise program, functional training, gait training, postural re-training, neuromuscular re-education, modalities as needed for pain, equipment safety demonstration. Frequency and Duration: The patient will be seen 2x/wk for 8 wks Short Term Goals: pt will be I w/ HEP to promote self-management of condition. pt will demo proper sitting posture w/ lumbar roll to promote neutral spine w/ seated ADLs/work tasks. Skilled Nursing Goals: pt will tolerate standing for >30 min w/ <2/10 back pain to promote ease in household tasks such as dishes. pt will improve B hip flex and ABD strength by 1 MMT grade to promote ease in stair navigation. Treatment Plan: Modalities to reduce pain, spasms and effusion. Manual therapy to restore motion and function. Therapeutic exercise to improve strength and flexibility. Neuromuscular re-education for posture and balance. Therapeutic activities to return to functional activities of daily living. Electronically signed by: Claudette Brooks PT, DPT Please sign and return to therapist. Thank you for your referral.
--- NOTE | 2024-06-30 15:37 | MHC.PT.DC ---
[facility] [place] [facility] [place] [facility] [place] Office [address] Liana Cai 140 [facility] [phone] F: [phone] F: [phone] F: [phone] F: [phone] Physical Therapy Discharge Report Diagnosis: pelvic floor, lower quadrant pain (RL) they/them pronouns Date of Surgery: N/A Date of Evaluation: 03/07/24 Date of Discharge: 06/30/24 Treatments to Date: 9 Cancellations to Date: 5 No Shows to Date: 0 Discharge Status: Recommend MD Follow-up Discharge Summary: The patient overall was doing well with physical therapy intervention reporting an improvement in back pain; however, because they were feeling better were trying to do more functionally around the house. They would then experience flare up of pain perpetuating their pain cycle. The patient felt they needed an injection to relief symptoms. It has been 45 days since their last attended appointment. At this time, I have to discharge the chart. If the patient would like to restart physical therapy they will require a new script. Electronically signed by: Claudette Brooks PT, DPT Please sign and return to therapist. Thank you for your referral.
== END 2024-06-30 15:38 | disposition home or self-care (01) ==
LOC: HO.PT 10:00
PROVIDERS: PCP Nurse Practitioner Family; Visit Provider Physical Medicine & Rehabilitation
DX: R10.32 Left lower quadrant pain (principal); G89.29 Other chronic pain; M62.89 Other specified disorders of muscle
CPT/HCPCS: 97110; 97112; 97162

== ENCOUNTER 2024-05-29 15:12 | Outpatient (AMB) | payer OTHER, SELFPAY ==
[2024-05-29 15:18] VITALS: BP 112/57; PULSE 75; O2SAT 97; BMI 24.4
--- NOTE | 2024-05-29 15:18 | A.OFFVIS_ITS ---
Vital Signs 05/29/24 15:18 Height 5 ft 4 in Weight 142 lb BMI 24.4 BP 112/57 L Blood Pressure Location Rt brachial Position Sitting Pulse 75 Pulse Source Pulse Oximeter Pulse Oximetry (%) 97 Oxygen Delivery Method Room Air Intake Visit Reasons: FU to repeat injections Allergies adhesive Allergy (Verified 05/29/24 15:19) Rash Medication List - Last Reconciled 05/29/24 by Summer Deutsch acetaminophen 500 mg PO DAILY amitriptyline 30 mg PO BEDTIME Bacillus coagulans-inulin 1 billion-250 cell-mg 1 cap PO DAILY cetirizine 10 mg PO DAILY cholecalciferol (vitamin D3) (Vitamin D3) 125 mcg PO DAILY dicyclomine 1 tab PO TID PRN epinephrine (EpiPen) 0.3 mg IM Q4H PRN gabapentin 600 mg PO TID immune globulin,gamma(IgG)klhw (Xembify) subcut QWEEK lamotrigine 200 mg PO QAM lorazepam 0.5 mg PO QID PRN melatonin 3 mg PO BEDTIME meloxicam 7.5 mg PO DAILY methocarbamol 500 mg PO TID PRN mirabegron ER (Myrbetriq) 25 mg PO DAILY omega 3-dbn-gtf-fish oil 900-1,400 mg 1 cap PO DAILY propranolol 20 mg PO DAILY PRN quetiapine 25 mg PO BEDTIME PRN valacyclovir 1,000 mg PO DAILY HPI Comments Details: Patient presents back to the office today for follow They are requesting to repeat bilateral therapeutic sacroiliac joint injections Most recent injections were performed 01/22/2024 with 95% pain relief and improvement in functional mobility Patient is now 4 months post injections, pain is 6/10. They have noted wo rsening function mobility and are starting to feel like they need more assistance with activities of daily living. Denies new medications, diagnoses, allergies Prior: Sharee presents back to the office today for follow-up, one-week status post bilateral therapeutic sacroiliac joint injections performed 01/22/2024 Pain today is rated as a 1/10 Reports 95% pain relief with improvement in functional mobility Is now able to clean the house, carry their groceries and otherwise be more active since the injections Denies any untoward effects of the injection Prior: Sharee presents back to the office today for follow-up, 2 days status post bilateral diagnostic sacroiliac joint injections. They report 95% relief of pain with improvement in function mobility. Pain today is rated as a 0.5/10. After the procedure they were able to back, very dire apartment, climb up and down stairs, decrease the use of meloxicam and heat. Thery're currently able to ambulate without walker or cane due to the the imp rovement in pain since the diagnostic procedure. Patient has SI belt, has not been using because they did not know if it would be beneficial. Prior: Sharee presented to the office today for evaluation and management of their chronic lower back pain Patient has been suffering with this pain for approximately 8 years, started after an undiagnosed Lyme disease. They suffer from chronic fatigue syndrome, was told in the past to avoid exercise as it will worsen the fatigue. This has led to weakening of the musculature. Had been doing yoga but was told by the spine doctor to discontinue yoga. Pain across lower back with radiation to the groin and down the posterior thighs to the level of the knee. Rated today as a 4/10, constant, worse in the mornings, during the day and in the evenings. Pain is worse with standing, sitting, stairs and doing housework Completed 4 weeks of physical therapy without improvement of her symptoms. Has been doing home exercise program that they find to be painful and not beneficial. Currently taking meloxicam daily with some relief. Has not tried muscle relaxers, chiropractor, acupuncture, massage or injections. Taking gabapentin 600 mg in the morning 900 mg at bedtime, prescribed by doctor at [facility]. Patient has approximately 2 weeks of medication left and has terminated the relationship with that provider. Patient denies red flag symptoms including new loss of bowel, bladder or saddle anesthesia. Patient was evaluated by physiatry and referred here for eval and management. In terms of muscle damage condition is described as aching, stabbing, sharp, dull, cramping Pain is negatively impacting patient's enjoyment of life, general activity, normal work, recreational activities, relationships with people, walking, rowdy ding, housework and hygiene [facility] Medical History Recurrent genital herpes Common variable agammaglobulinemia Borderline personality disorder Vitamin D deficiency Gender dysphoria Spondylolisthesis, lumbar region Groin pain, chronic, left History of substance abuse PFO (patent foramen ovale) RBBB PTSD (post-traumatic stress disorder) Anxiety and depression Encephalomyelitis Chronic fatigue syndrome Interstitial cystitis IBS (irritable bowel syndrome) Surgical History History of lingual frenulectomy Hx of wisdom tooth extraction H/O colonoscopy Social History Patient Tobacco Use Status: Former Tobacco user Tobacco use type: Cigarette Substance Use Type: Marijuana Review of Systems Const All systems reviewed & are unremarkable except as noted in HPI and below Physical Exam Vital Signs: Last Vital Signs Pulse 75 05/29/24 15:18 BP 112/57 L 05/29/24 15:18 Pulse Ox 97 05/29/24 15:18 Oxygen Delivery Method Room Air 05/29/24 15:18 BMI result Body Mass Index 24.4 General: awake, alert, oriented. Answers questions appropriately. Fully engaged in examination. Skin: warm, dry, intact HEENT: Normocephalic. Hearing intact. Cardiac: External chest normal in appearance. Respiratory: No cough, audible wheezing or stridor. Abdomen: without gross distension. MS: No obvious swelling or deformities. Neurological: Oriented to person, place, time and situation. Thought process intact. Psychiatric: Appropriate mood and affect. Good judgment and insight. Results Reviewed Results Reviewed: 10/17/23 XR/XR hip LT min 2V Right hip: Visualized portion of proximal right femur demonstrate no fracture. Right femoral head is well-seated within the acetabulum. Right femoral acetabular joint space is well-maintained. No significant degenerative changes of the right hip. Partially visualized IUD projects over the midline pelvis. Left hip: Visualized portion of proximal left femur demonstrate no fracture. Left femoral head is well-seated within the acetabulum. Left femoral acetabular joint space is well-maintained. No appreciable degenerative changes of the left hip. IUD projects are midline pelvis. IMPRESSION: Unremarkable radiographs of the bilateral hips. Assessment & Plan Assessment & Plan (1) Sacroiliac joint dysfunction of both sides: Code(s): M53.3 - Sacrococcygeal disorders, not elsewhere classified Category: Medical Plan Sharee presented back to the office today for follow-up bilateral sacroiliac joint dysfunction They reported 95% pain relief with improvement in functional mobility after the procedure. Continue with SI belt as needed C/W gabapentin 600 mg 3 times daily C/W Methocarbamol 500 mg p.o. t.i.d. as needed C/W Meloxicam daily as needed Will schedule for repeat fluoroscopy guided bilateral therapeutic sacroiliac joint injections with local anesthetics. All questions and concerns were answered, patient agrees to the plan. Follow-up after procedure, sooner if needed Coding Level of Care Code Est Pt Level 3 (71322) Complex EM visit Add On G2211 Diagnoses Sacroiliac joint dysfunction of both sides M53.3
== END 2024-05-29 15:43 | disposition home or self-care (01) ==
PROVIDERS: PCP Internal Medicine; Visit Provider Registered Nurse Emergency
DX: M53.3 Sacrococcygeal disorders, not elsewhere classified (principal)
CPT/HCPCS: 99213; G2211

== ENCOUNTER → 2024-05-29 15:12 | Outpatient (BNVA) | payer OTHER, SELFPAY | PROVIDERS: PCP Internal Medicine; Visit Provider Registered Nurse Emergency | DX: M53.3 Sacrococcygeal disorders, not elsewhere classified (principal) | CPT/HCPCS: 99212 ==

== ENCOUNTER 2024-08-12 06:32 | Outpatient (REF) | payer OTHER, SELFPAY ==
--- NOTE | ~2024-08-12 | FL_ITS ---
EXAMINATION: FL GUIDANCE ONLY HISTORY: M53.3 - Sacrococcygeal disorders, not elsewhere classified COMPARISON: None available. TECHNIQUE: Fluoroscopy time: 0.2 minutes. Cumulative Dose: 4.61 mGy. DAP: 0.0801 uGy-m2 (microgray-meter squared). Images: 2. FINDINGS: Images demonstrate needles and contrast material in the regions of the bilateral sacroiliac joints. FL/FL guidance in treatment room IMPRESSION: Fluoroscopy during procedure. Please see procedure report for additional information. Electronically signed by: Doug Milner MD 08/13/2024 02:49 PM EST
--- OUTSIDE RECORDS SUMMARY | 2024-08-12 06:34 | XMS_ITS ---
Demographics Address [address] ` [place] [address] Email Address Preferred Language en Marital Status Unknown Shinto Affiliation Unknown Race White Ethnic Group Not or Lati no Author Organization [facility] Address [address] [place] [address] Care Team Providers Care Assistant At Surgery Name Role Phone Shellie Munroe Primary Care Provider Unavail able Doug Castro Unavailable [phone] ALLERGIES No Known Allergies REASON FOR VISIT f/u office visit from her upper endo MEDICATIONS Medication SIG (Take, Route, Frequency, Duration) Notes Start Date End Date Status Myrbetriq 25 MG Oral for 30 Ac tive LORazepam 0.5 MG TAKE ONE TABLET BY M OUTH EVERY 8 HOURS NEEDED FOR ANXIETY Oral for 30 Active Dicyclomine HCl 20 MG Oral for 15 Active D-3-5 125 MCG (5000 UT) TAKE ONE CAPSULE BY MOUTH EVERY DAY Oral for 90 Active Banophen 25 MG 1 tablet at bedtime as needed Orally Once a day for 30 day(s) Active Propranolol HCl 20 MG TAKE ONE TABLET BY MOUTH THREE TIMES A DAY NEEDED Oral for 30 Active lamoTRIgine 100 MG Oral for 30 Active Amitriptyline HCl 10 MG TAKE 4 TABLETS B Y MOUTH NIGHTLY AT BEDTIME. Oral Once a day Active Xembify 1 GM/5ML Subcutaneous for 30 Active Acetaminophen 500 MG 1 capsule as needed Orally every 6 hrs Active N-Acetyl Cysteine 600 MG as directed Orally Active Naproxen Sodium 220 MG 1 capsule with fo od or milk as needed Orally every 12 hrs PRN Active Acetyl L-Carnitine A ctive Probiotic - as directed Orally Active Trace Minerals Cu-Mn-Se-Zn Active Brook 3 Active SEROquel 25 MG DIRECTED Orally O nce a day Active Gabapentin 300 MG 1 capsule Orally Onc e a day for 30 day(s) Active SOCIAL HISTORY Tobacco Use: Social History Observation Description Date Details (start date - stop date) Former Smoker NA - NA Sex Assigned At : Social History Observation Description Sex Assigned At Unknown Tobacco Use/Smoking Question Answer Notes Patient is a former smoker How long has it been since you last smoked? 5-10 years Alcohol Screen Question Answer Notes Did you have a drink containing alcohol in the p ast year? No Points 0 Interpretation Negative PROBLEMS Problem Type ICD Code Onset Dates Problem Status W/U Status Risk SNOMED Code Notes Problem Hiatal hernia (K44.9) Active confirmed Hiatal hernia (46263037) Problem Irritable bowel syndrome (K58.9) Active confirmed Irritable bowel syndrome (45843443) VITAL SIGNS BMI 25.23 kg/m2 08/28/2023 Blood pressure systolic 00 mm Hg 08/28/19 24 Blood pressure diastolic 00 mm Hg 024 Height 64 in 08/28/2023 Temperature 97.1 degrees Fahrenheit 08/28/19 24 Weight 147 lbs 08/28/2023 Encounters Encounter Location Date Provider Diagnosis [facility] [address] [place] [address] 08/28/2023 Doug Castro GERD (gastroesophageal reflux disease) K21.9 ; Hiatal hernia K44.9 and Irritable bowel syndrome K58.9 ASSESSMENTS Encounter Date Diagnosis Assessment Notes Treatment Notes Treatment Clinical Notes 08/28/2023 GERD (gastroesophageal reflux disease) (ICD-10 - K21.9) Observe things in regard to the hiatal hernia and reflux. Call if GI symptoms worsen. You should have a screening colonoscopy at age 47. 08/28/2023 Hiatal hernia (ICD-10 - K44.9) 08/28/2023 Irritable bowel syndrome (ICD-10 - K58.9) PLAN OF TREATMENT Treatment Notes Assessment Notes GERD (gastroesophageal reflux disease) O bserve things in regard to the hiatal hernia and reflux. Call if GI symptoms worsen. You should have a screening colonoscopy at age 47. Next Appt Details Follow Up: prn, Reason: Progress Notes * Examination Category Sub-Category Detail Notes General Examination GENERAL APPEARANCE: pleasant , well nourished, well developed, in no acute distress HEAD: EYES: sclera non-icteric EARS: NOSE: THROAT: NECK/THYROID: no cervical lymphade nopathy, neck supple HEART: S1, S2 normal CHEST: LUNGS: clear to auscultatio n bilaterally ABDOMEN: normal bowel sounds, no guarding or rigidity, no guarding or rigidity, no masses palpable, soft, nontender, nondistended NEUROLOGIC: alert and oriented SKIN: nonjaundiced, no spi chante angiomata EXTREMITIES: no edema PERIPHERAL PULSES: BACK: BREASTS: MUSCULOSKELETAL: MALE GENITOURINARY: LYMPH NODES: RECTAL EXAM: FEMALE GENITOURINARY: ORAL CAVITY: mucosa moist
--- OUTSIDE RECORDS SUMMARY | 2024-08-12 06:35 | XMS_ITS | Data Portability ---
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 Exam demonstrated left submandibular stone protruding through duct opening, removed today with gentle massage. There is no sign of infection, swelling, or discharge. Patient reported immediate pain relief after procedure. Discussed preventative measures. Patient will follow-up as needed in the office. [email or web address] Not available 07/03/2024 11:27:46 Plan of Treatment Reminders Order Date Submit Date Provider Last Modified By Organization Details Last Modified Time Details Appointments None record ed. Lab None record ed. Referral None record ed. Procedures None record ed. Surgeries None record ed. Imaging None record ed. Medication Orders None record ed. Patient TargetsNo targets recorded. Patient InstructionsNo instructions recorded. Reason for Referral None Reported. Problems Name Problem SNOMED Code Status Onset Date Resolution Date Notes Provider Name and Address Organization Details Recorded Time Bilateral tinnitus 37224367496 02 Active 2021 Tinnitus, bilateral ; Note: Date Diagnosed : 08/12/2021 10:52 AM (H93.13) Not Available [facility] 4 02:17:27 Posterior rhinorrhe a 89508392 Active 2021 Postnasal drip; Note: Date Diagnosed : 08/13/2021 7:59 AM (R09.82) Not Available [facility] 4 02:18:02 Allergic rhinitis 87973240 Active 2021 Other allergic rhinitis; Note: Date Diagnosed : 10/07/2021 2:20 PM (J30.89) Not Available [facility] 4 02:17:36 Respirato ry finding 838230088 Active 2021 Feeling of foreign body in throat; Note: Date Diagnosed : 08/13/2021 8:03 AM (R09.89) Not Available [facility] 4 02:18:08 Cardiovas cular finding 177701861 Active 2021 Feeling of foreign body in throat; Note: Date Diagnosed : 08/13/2021 8:03 AM (R09.89) Not Available [facility] 4 02:18:08 Abnormal findings on diagnosti c imaging of skull and head 002583501 Active 2023 Abnormal findings on diagnosti c imaging of skull and head, not elsewhere classifie d; Note: Date Diagnosed : 09/14/2023 4:32 PM (R93.0) Not Available [facility] 4 02:17:25 Disorder of muscle 754123855 Active 2023 Other specified disorders of muscle; Note: Date Diagnosed : 08/17/2023 6:49 PM (M62.89) Not Available [facility] 4 02:17:59 Sialolith iasis 18178509 Active 2023 SHAW HILLIARD PA-C [address] [place] [address], [phone] , [place] - [facility] 4 11:27:56 Problem Notes None recorded. Procedures Surgical History Date Name Laterality Status Provider Name and Address Organization Details Recorded Time 4 salivary stone removal completed SHAW HILLIARD PA-C [address] [place] [address], [phone], [facility] - [facility] 07/03/2024 11:23:28 Imaging Results None recorded. Procedure Notes None recorded. Medical Equipment None Reported. Allergies Allergen ID Allergen Name Allergen Category Reaction Reaction Severity Criticality Documentation Date Start Date Code Code System Note Provider Name and Address Organization Details Recorded Time 02122 adhesive tape environme nt,medica tion other Not available Not available 11/27/2023 53706 UNK React ion: other react ion, Unkno wn; Not Available [facility] 4 00:52:37 Medications Name Sig Start Date Stop Date Status Note LastModified by Organization Details LastModified Time quetiapine 25 mg tablet TAKE ONE TABLET BY MOUTH EVERY EVENING AT BEDTIME NEEDED FOR ANXIETY AND SLEEP active Not Available Not Available No t Available methocarba mol 500 mg tablet TAKE 1 TABLET BY MOUTH 3 TIMES A DAY NEEDED FOR MUSCLE SPASMS. DO NOT DRIVE, DRINK ALCOHOL OR TAKE ANY OTHER SUPERINTENDENT INSTITUTION DEPRESSAN TS active Not Available Not Available No t Available buspirone 5 mg tablet 2021 active Medicatio n ID: [id number] Br and Name: buspirone Send Method: E-Prescri bed Subs Allowed: subs OK Medica tionGener icName: buspirone Not Available Not Available Not Available gabapentin 600 mg tablet TAKE 1 TABLET BY MOUTH 3 TIMES A DAY active Not Available Not Available No t Available lamotrigin e 200 mg tablet TAKE 1 TABLET BY MOUTH EVERY MORNING active Not Available Not Available No t Available cetirizine 10 mg tablet TAKE ONE TABLET BY MOUTH EVERY DAY active Not Available Not Available No t Available valacyclov ir 1 gram tablet TAKE ONE TABLET BY MOUTH EVERY DAY active Not Available Not Available No t Available acyclovir 400 mg tablet 2021 active Medicatio n ID: [id number] Br and Name: acyclovir Send Method: E-Prescri bed Subs Allowed: subs OK Specia l Instructi on: TAKE ONE TABLET BY MOUTH EVERY 8 HOURS FOR 5 DAYS [facility] cationGen ericName: acyclovir Not Available Not Available Not Available triamcinol one acetonide 0.1 % topical cream 2021 active Medicatio n ID: [id number] Br and Name: triamcino lone acetonide Send Method: E-Prescri bed Subs Allowed: subs OK Medica tionGener icName: triamcino lone acetonide Not Available Not Available Not Available lidocaine- prilocaine 2.5 %-2.5 % topical cream active Not Available Not Available Not Available meloxicam 7.5 mg tablet TAKE 1 TABLET BY MOUTH DAILY active Not Available Not Available No t Available lorazepam 0.5 mg tablet TAKE ONE TABLET BY MOUTH FOUR TIMES A DAY NEEDED active Not Available Not Available No t Available dicyclomin e 20 mg tablet TAKE ONE TABLET BY MOUTH THREE TIMES A DAY NEEDED active Not Available Not Available No t Available amitriptyl ine 10 mg tablet TAKE FOUR TABLETS BY MOUTH DAILY AT BEDTIME active Not Available Not Available No t Available cephalexin 500 mg capsule TAKE ONE CAPSULE BY MOUTH THREE TIMES A DAY FOR 5 DAYS active Not Available Not Available No t Available Banophen 25 mg tablet active Not Available Not Available Not Available naproxen sodium 220 mg tablet 2021 active Medicatio n ID: [id number] Br and Name: naproxen sodium Se nd Method: E-Prescri bed Subs Allowed: subs OK Medica tionGener icName: naproxen sodium Not Available Not Available Not Available gabapentin 300 mg capsule TAKE FIVE CAPSULES BY MOUTH EVERY DAY IN DIVIDED DOSES DISCUSSED active Not Available Not Available No t Available sertraline 25 mg tablet 2021 active Medicatio n ID: [id number] Br and Name: sertralin e Send Method: E-Prescri bed Subs Allowed: subs OK Medica tionGener icName: sertralin e Not Available Not Available Not Available Banophen 25 mg capsule 2021 active Medicatio n ID: [id number] Br and Name: Banophen Send Method: E-Prescri bed Subs Allowed: subs OK Medica tionGener icName: Banophen Not Available Not Available Not Available hydroxyzin e HCl 25 mg tablet 2021 active Medicatio n ID: [id number] Br and Name: hydroxyzi ne HCl Send Method: E-Prescri bed Subs Allowed: subs OK Specia l Instructi on: TAKE ONE TABLET BY MOUTH EVERY DAY AT BEDTIME NEEDED Me dicationG enericNam e: hydroxyzi ne HCl Not Available Not Available Not Available alcohol swabs active Not Available Not Available Not Available lorazepam [address] 1 TABLET SUBLINGUA LLY UNDER THE TONGUE) ONCE FOR ANXIETY 30 MINUTES PRIOR TO ARRIVAL FOR PROCEDURE . DO NOT DRIVE WHILE TAKING THIS ME active Not Available Not Available No t Available epinephrin e 0.3 mg/0.3 mL injection, auto-injec tor 2021 active Medicatio n ID: [id number] Br and Name: epinephri ne Send Method: E-Prescri bed Subs Allowed: subs OK Medica tionGener icName: epinephri ne Not Available Not Available Not Available propranolo l 20 mg tablet TAKE ONE TABLET BY MOUTH THREE TIMES A DAY NEEDED FOR PALPITATI ONS active Not Available Not Available No t Available acetaminop hen 500 mg capsule 2021 active Medicatio n ID: [id number] Br and Name: acetamino phen Send Method: E-Prescri bed Subs Allowed: subs OK Medica tionGener icName: acetamino phen Not Available Not Available Not Available cholecalci ferol (vitamin D3) 125 mcg (5,000 unit) capsule TAKE ONE CAPSULE BY MOUTH EVERY DAY active Not Available Not Available No t Available loratadine 10 mg tablet 2021 active Medicatio n ID: [id number] Du ration Value: 90 Prescrib ed By Name: Tavo Mcmillan MD Brand Name: loratadin e Send Method: E-Prescri bed Subs Allowed: subs OK Specia l Instructi on: Take 1 tab daily Med icationGe nericName : loratadin e Not Available Not Available Not Available amoxicilli n 875 mg-potassi um clavulanat e 125 mg tablet 2021 active Medicatio n ID: [id number] Br and Name: amoxicill in-pot clavulana te Send Method: E-Prescri bed Subs Allowed: subs OK Specia l Instructi on: TAKE ONE TABLET BY MOUTH EVERY 12 HOURS FOR 10 DAYS Medi cationGen ericName: amoxicill in-pot clavulana te Not Available Not Available Not Available Mini-Fernie IV Additive Disp Pin (Misc) intravenou s accessory active Not Available Not Available No t Available Sharps Container active Not Available Not Available No t Available Fiber-Caps (psyllium husk) 0.52 gram capsule 2021 active Medicatio n ID: [id number] Br and Name: Fiber-Cap s (psyllium husk) Sen d Method: E-Prescri bed Subs Allowed: subs OK Medica tionGener icName: Fiber-Cap s (psyllium husk) Not Available Not Available Not Available Vitamin D 2021 active Medicatio n ID: [id number] Br and Name: vitamin D Send Method: E-Prescri bed Subs Allowed: subs OK Medica tiKeshianer icName: vitamin D Not Available Not Available Not Available aripiprazo le 2 mg tablet TAKE ONE TABLET BY MOUTH EVERY DAY active Not Available Not Available No t Available acetylcarn itine 500 mg capsule 2021 active Medicatio n ID: [id number] Br and Name: acetylcar nitine Se nd Method: E-Prescri bed Subs Allowed: subs OK Medica tionGener icName: acetylcar nitine Not Available Not Available Not Available Myrbetriq 25 mg tablet,ext ended release TAKE 1 TABLET BY MOUTH DAILY. active Not Available Not Available No t Available melatonin 3 mg capsule 2021 active Medicatio n ID: [id number] Br and Name: melatonin Send Method: E-Prescri bed Subs Allowed: subs OK Medica tionGener icName: melatonin Not Available Not Available Not Available Xembify 10 gram/50 mL (20 %) subcutaneo us solution active Not Available Not Available Not Available Xembify 4 gram/20 mL (20 %) subcutaneo us solution 2021 active Medicatio n ID: [id number] Br and Name: Xembify S end Method: E-Prescri bed Subs Allowed: subs OK Medica tionGener icName: Xembify Not Available Not Available Not Available Xembify 1 gram/5 mL (20 %) subcutaneo us solution 2021 active Medicatio n ID: [id number] Br and Name: Xembify S end Method: E-Prescri bed Subs Allowed: subs OK Medica tionGener icName: Xembify Not Available Not Available Not Available Vitals Date Recorded Body weight Body mass index (BMI) Body height Provider Name and Address Organization Details Last Updated DateTime 07/03/2024 69393.3 g 24.7 kg/m2 162.56 cm Adelia Mcmahon MA [facility] 07/03/2024 10:54:21 Social History None recorded. Functional Status None recorded. Mental Status None recorded. Family History Nothing Reported. Medical History No medical history recorded. Gynecological HistoryNo gynecological history recorded. Obstetrics History GPAL:G 0 P 0 0 0 0 Past Encounters Encounter ID Performer Location Encounter Start Date Encounter Closed Date Diagnosis/Indication Diagnosis SNOMED-CT Code Diagnosis ICD10 Code Diagnosis Note [id number] TAVO MCMILLAN MD [facility] [address] [place] [address] 07/03/2024 10:33:20 07/03/2024 11:28:57 Sialolithiasis 78313080 K11.5 Health Concerns Section Related Observation LastModified by Organization Detai ls LastModified Time None Recorded Concern Status LastModified by Organization Details LastModified Time None Recorded Advance Directives Directive None Recorded Payers Encounter Date Sequence Insurance Name Policy Number Policy Dickinson Covered Member ID Dickinson Member ID Guarantor Name 07/03/2024 1 [facility] (MEDICAID REPLACEMENT - HMO) [id number] Sharee Littlejohn [id number] Sharee Littlejohn Notes Date Note Type Note Provider Name and Address Organization Details Recorded Time 07/03/2024 text/html 44-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 She reports associated intermittent submandibular pain that radiates down her neck. Endorses submandibular stones 2-3 times per year. She usually can remove the stones on her own. Denies oropharyngeal swelling or dryness. TAVO MCMILLAN MD [address] [place] [address], [phone], [facility] - [facility] 07/03/2024 11:47:25 OBGyn Episode No OBEpisode recorded.
== END 2024-08-12 06:33 | disposition home or self-care (01) ==
LOC: CF 06:32
PROVIDERS: Visit Provider Anesthesiology
DX: M53.3 Sacrococcygeal disorders, not elsewhere classified (principal)
CPT/HCPCS: 27096; J2003; J2795; J3301; Q9967

== ENCOUNTER 2024-08-12 13:13 | Outpatient (AMB) | payer OTHER, SELFPAY ==
[2024-08-12 13:25] VITALS: BP 101/57; PULSE 85; RESP 16; O2SAT 98
--- NOTE | 2024-08-12 13:25 | MHC.OFFVIS ---
Vital Signs 08/12/24 13:25 08/12/24 14:26 BP 101/57 L 99/60 Blood Pressure Location Lt brachial Lt brachial Position Sitting Sitting Respiration 16 16 Pulse 85 76 Pulse Source Pulse Oximeter Pulse Oximeter Pulse Oximetry (%) 98 98 Oxygen Delivery Method Room Air Room Air Intake Visit Reasons: BILATERAL THERAPEUTIC SIJ INJECTIONS Allergies adhesive Allergy (Verified 08/12/24 13:26) Rash Medication List - Last Reconciled 08/12/24 by Nathalie Stallings LPN acetaminophen 500 mg PO DAILY amitriptyline 30 mg PO BEDTIME Bacillus coagulans-inulin 1 billion-250 cell-mg 1 cap PO DAILY cetirizine 10 mg PO DAILY cholecalciferol (vitamin D3) (Vitamin D3) 125 mcg PO DAILY dicyclomine 1 tab PO TID PRN epinephrine (EpiPen) 0.3 mg IM Q4H PRN gabapentin 600 mg PO TID immune globulin,gamma(IgG)klhw (Xembify) subcut QWEEK lamotrigine 200 mg PO QAM lorazepam (Ativan) 1 mg PO ONCE lorazepam 0.5 mg PO QID PRN melatonin 3 mg PO BEDTIME meloxicam 7.5 mg PO DAILY methocarbamol 500 mg PO TID PRN mirabegron ER (Myrbetriq) 25 mg PO DAILY omega 9-xis-gfw-fish oil 900-1,400 mg 1 cap PO DAILY propranolol 20 mg PO DAILY PRN quetiapine 25 mg PO BEDTIME PRN valacyclovir 1,000 mg PO DAILY PFSH Medical History Recurrent genital herpes Common variable agammaglobulinemia Borderline personality disorder Vitamin D deficiency Gender dysphoria Spondylolisthesis, lumbar region Groin pain, chronic, left History of substance abuse PFO (patent foramen ovale) RBBB PTSD (post-traumatic stress disorder) Anxiety and depression Encephalomyelitis Chronic fatigue syndrome Interstitial cystitis IBS (irritable bowel syndrome) Surgical History History of lingual frenulectomy Hx of wisdom tooth extraction H/O colonoscopy Social History Patient Tobacco Use Status: Former Tobacco user Tobacco use type: Cigarette Substance Use Type: Marijuana Physical Exam Vital Signs: Last Vital Signs Pulse 76 08/12/24 14:26 Resp 16 08/12/24 14:26 BP 99/60 08/12/24 14:26 Pulse Ox 98 08/12/24 14:26 Oxygen Delivery Method Room Air 08/12/24 14:26 Assessment & Plan Assessment & Plan (1) Sacroiliac joint dysfunction of both sides: Code(s): M53.3 - Sacrococcygeal disorders, not elsewhere classified Category: Medical Plan Bilateral sacroiliac joint injection therapeutic. Informed consent was thoroughly explained to the patient before the procedure.? The patient came to the operating room.? She was positioned prone on operating table with a pillow under her abdomen.? Time-out was performed delineating correct site and side of the procedure, nature of the injection, name and date of of the patient. The lower back and upper buttocks of the patient was prepped with ChloraPrep and draped with sterile utility towels.? C-arm was brought over the operating field and picture of right sacroiliac joint was demonstrated on the screen. Tilting machine contralateral left 15 degrees from the midline the anterior portion of the silhouette of the joint was superimposed on posterior portion of the silhouette of the joint. The skin was anesthetized with mixture of ropivacaine 0.5% and lidocaine 2% one-to-one slightly medial to the silhouette of the sacroiliac joint. 22 gauge 3-1/2 inch spinal needle was inserted through the skin wheal and advanced to the sacroiliac joint. When tip of the needle entered the sacroiliac joint injection of the contrast performed delineating arthrogram. After that 4 cc of ropivacaine mixed with Kenalog 40 mg was injected into the joint. Upon completion of the injection needle was removed and the procedure was repeated on the left side in the mirroring fashion. After the injection the needle was removed and sterile bandades were applied Patient tolerated the procedure well. Orders: Orders FL guidance in treatment room Today M53.3 - Sacrococcygeal disorders, not elsewhere classified Coding Level of Care Code Procedure Only Diagnoses Sacroiliac joint dysfunction of both sides M53.3
--- OUTSIDE RECORDS SUMMARY | 2024-08-12 14:13 | XMS_ITS | Patient Health Record ---
Demographics Address [address] ` [place] [address] Email Address Preferred Language en Marital Status Unknown Evangelical Affiliation Unknown Race White Ethnic Group Not or Lati no Author Organization [facility] Address [address] [place] [address] Care Team Providers Care Bulk Sealer Operator Name Role Phone Shellie Munroe Primary Care Provider Unavail able Doug Castro Unavailable [phone] ALLERGIES No Known Allergies REASON FOR REFERRAL No Information MEDICATIONS Medication SIG (Take, Route, Frequency, Duration) Notes Start Date End Date Status Acetaminophen 500 MG 1 capsule as needed Orally every 6 hrs Active Banophen 25 MG 1 tablet at bedtime as needed Orally Once a day for 30 day(s) Active N-Acetyl Cysteine 600 MG as directed Orally Active Myrbetriq 25 MG Oral for 30 Ac tive Naproxen Sodium 220 MG 1 capsule with fo od or milk as needed Orally every 12 hrs PRN Active Acetyl L-Carnitine A ctive LORazepam 0.5 MG TAKE ONE TABLET BY M OUTH EVERY 8 HOURS NEEDED FOR ANXIETY Oral for 30 Active Probiotic - as directed Orally Active Dicyclomine HCl 20 MG Oral for 15 Active Trace Minerals Cu-Mn-Se-Zn Active Propranolol HCl 20 MG TAKE ONE TABLET BY MOUTH THREE TIMES A DAY NEEDED Oral for 30 Active [place] 3 Active D-3-5 125 MCG (5000 UT) TAKE ONE CAPSULE BY MOUTH EVERY DAY Oral for 90 Active SEROquel 25 MG DIRECTED Orally O nce a day Active lamoTRIgine 100 MG Oral for 30 Active Gabapentin 300 MG 1 capsule Orally Onc e a day for 30 day(s) Active Amitriptyline HCl 10 MG TAKE 4 TABLETS B Y MOUTH NIGHTLY AT BEDTIME. Oral Once a day Active Xembify 1 GM/5ML Subcutaneous for 30 Active IMMUNIZATIONS Vaccine Route Administration Date Status Comme nts Influenza Unknown 12/09/2021 Refused SOCIAL HISTORY Tobacco Use: Social History Observation [...] W/U Status Risk SNOMED Code Notes Problem GERD (gastroesophageal reflux disease) (K21.9) Active confirmed Gastroesophagea l reflux disease (567698606) Problem Abdominal pain, acute, epigastric (R10.13) Active confirmed Epigastric pain (57163888) Problem Irritable bowel syndrome with diarrhea (K58.0) Active confirmed Irritable b owel syndrome with diarrhea (754268892) Problem Gastroesophageal reflux (K21.9) Active confirmed Esophageal re flux finding (805931610) Problem Hiatal hernia (K44.9) Active confirmed Hiatal hernia (59857978) Problem Irritable bowel syndrome (K58.9) Active confirmed Irritable b owel syndrome (78820584) VITAL SIGNS Temperature 97.1 degrees Fahrenheit 08/28/2023 Blood pressure diastolic 00 mm Hg 08/28/2023 Height 64 in 08/28/2023 Blood pressure systolic 00 mm Hg 08/28/2023 Weight 147 lbs 08/28/2023 BMI 25.23 kg/m2 08/28/2023 Encounters Encounter Location Date Provider Diagnosis [facility] [address] [place] [id number] 08/28/2023 Doug Castro GERD (gastroesophageal reflux disease) K21.9 ; Hiatal hernia K44.9 and Irritable bowel syndrome K58.9 ASSESSMENTS Encounter Date Diagnosis Assessment Notes Treatment Notes Treatment Clinical Notes 08/28/2023 Hiatal hernia (ICD-10 - K44.9) 08/28/2023 GERD (gastroesophageal reflux disease) (ICD-10 - K21.9) Observe things in regard to the hiatal hernia and reflux. Call if GI symptoms worsen. You should have a screening colonoscopy at age 47. 08/28/2023 Irritable bowel syndrome (ICD-10 - K58.9) PLAN OF TREATMENT Future Test Test Name Order Date UPPER GI ENDOSCOPY 12/09/2021 Insurance Providers Payer Name Payer Address Payer Phone Subscriber Number Group Number Insured Name Patient Relationship to Insured Coverage Start Date Coverage End Date [facility] [address] [address] [place], [place] [phone] [id number] DAHIANA CORDOVA Self - patient is the insured MEDICAL (GENERAL) HISTORY Medical History History ICD Code Chronic fatigue syndrome/Junie lgic Encephalomyelitis--possibly triggered by Lyme's Disease in approx. 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 Duodenal biopsies were negative for celiac disease, gastric biopsies were negative for H. pylori, and biopsies from the gastroesophageal junction were negative for Jesus's esophagus. Surgical History Surgery Date(Month/Year) [place] teeth extraction Frenectomy between lip and gum 2003
[2024-08-12 14:26] VITALS: BP 99/60; PULSE 76; RESP 16; O2SAT 98
== END 2024-08-12 14:26 | disposition home or self-care (01) ==
LOC: HO.PMCPRC 13:13
PROVIDERS: PCP Internal Medicine; Visit Provider Anesthesiology
DX: M53.3 Sacrococcygeal disorders, not elsewhere classified (principal)
CPT/HCPCS: 27096

== ENCOUNTER 2024-09-03 13:56 | Outpatient (AMB) | payer OTHER, SELFPAY ==
--- NOTE | 2024-09-03 13:59 | A.OFFVIS_ITS ---
Vital Signs 09/03/24 14:02 Height 5 ft 4 in Weight 139 lb BMI 23.9 BP 131/59 L Blood Pressure Location Lt brachial Position Sitting Respiration 16 Pulse 96 Pulse Source Pulse Oximeter Pulse Oximetry (%) 98 Oxygen Delivery Method Room Air Intake Visit Reasons: BILATERAL THERAPEUTIC SIJ INJECTIONS Emergency Communications Operator Required: No Allergies adhesive Allergy (Verified 09/03/24 14:03) Rash Medication List - Last Reconciled 09/03/24 by Nathalie Stallings LPN acetaminophen 500 mg PO DAILY amitriptyline 30 mg PO BEDTIME cholecalciferol (vitamin D3) (Vitamin D3) 125 mcg PO DAILY dicyclomine 1 tab PO TID PRN epinephrine (EpiPen) 0.3 mg IM Q4H PRN gabapentin 600 mg PO TID immune globulin,gamma(IgG)klhw (Xembify) subcut QWEEK lamotrigine 200 mg PO QAM lorazepam 0.5 mg PO QID PRN melatonin 3 mg PO BEDTIME meloxicam 7.5 mg PO DAILY methocarbamol 500 mg PO TID PRN mirabegron ER (Myrbetriq) 25 mg PO DAILY omega 1-sbz-zhn-fish oil 900-1,400 mg 1 cap PO DAILY propranolol 20 mg PO DAILY PRN quetiapine 25 mg PO BEDTIME PRN valacyclovir 1,000 mg PO DAILY HPI Comments Details: Patient presents back to the office today for follow-up 3 weeks status post bilateral therapeutic sacroiliac joint injections Endorses approximately 30% pain relief. 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 Pain has since returned. Not sure if they are ready to commit to SI fusion, concerned about general anesthesia and surgery overall. Has been reviewing SI fusion and depth since last visit. Would like a referral to neurosurgeon to discuss other SI fusion options. Continues wearing SI belt Using meloxicam and methocarbamol as needed with good effect Taking gabapentin 600 mg 3 times daily with good effect. Missed a dose recently and pain became significantly worse. Denies any untoward effects of the medication. Prior: Patient presents back to the office today for follow They are requesting to repeat bilateral therapeutic sacroiliac joint injections Most recent injections were performed 01/22/2024 with 95% pain relief and improvement in functional mobility Patient is now 4 months post injections, pain is 6/10. They have noted worsening function mobility and are starting to feel like they need more assistance with activities of daily living. Denies new medications, diagnoses, allergies Prior: Sharee presents back to the office today for follow-up, one-week status post bilateral therapeutic sacroiliac joint injections performed 01/22/2024 Pain today is rated as a 1/10 Reports 95% pain relief with improvement in functional mobility Is now able to clean the house, carry their groceries and otherwise be more active since the injections Denies any untoward effects of the injection Prior: Sharee presents back to the office today for follow-up, 2 days status post bilateral diagnostic sacroiliac joint injections. They report 95% relief of pain with improvement in function mobility. Pain today is rated as a 0.5/10. After the procedure they were able to back, very dire apartment, climb up and down stairs, decrease the use of meloxicam and heat. Thery're currently able to ambulate without walker or cane due to the the improvement in pain since the diagnostic procedure. Patient has SI belt, has not been using because they did not know if it would be beneficial. Prior: Sharee presented to the office today for evaluation and management of their chronic lower back pain Patient has been suffering with this pain for approximately 8 years, started after an undiagnosed Lyme disease. They suffer from chronic fatigue syndrome, was told in the past to avoid exercise as it will worsen the fatigue. This has led to weakening of the musculature. Had been doing yoga but was told by the spine doctor to discontinue yoga. Pain across lower back with radiation to the groin and down the posterior thighs to the level of the knee. Rated today as a 4/10, constant, worse in the mornings, during the day and in the evenings. Pain is worse with standing, sitting, stairs and doing housework Completed 4 weeks of physical therapy without improvement of her symptoms. Has been doing home exercise program that they find to be painful and not beneficial. Currently taking meloxicam daily with some relief. Has not tried muscle relaxers, chiropractor, acupuncture, massage or injections. Taking gabapentin 600 mg in the morning 900 mg at bedtime, prescribed by doctor at [facility]. Patient has approximately 2 weeks of medication left and has terminated the relationship with that provider. Patient denies red flag symptoms including new loss of bowel, bladder or saddle anesthesia. Patient was evaluated by physiatry and referred here for eval and management. In terms of muscle damage condition is described as aching, stabbing, sharp, dull, cramping Pain is negatively impacting patient's enjoyment of life, general activity, normal work, recreational activities, relationships with people, walking, standing, housework and hygiene [facility] Medical History Recurrent genital herpes Common variable agammaglobulinemia Borderline personality disorder Vitamin D deficiency Gender dysphoria Spondylolisthesis, lumbar region Groin pain, chronic, left History of substance abuse PFO (patent foramen ovale) RBBB PTSD (post-traumatic stress disorder) Anxiety and depression Encephalomyelitis Chronic fatigue syndrome Interstitial cystitis IBS (irritable bowel syndrome) Surgical History History of lingual frenulectomy Hx of wisdom tooth extraction H/O colonoscopy Social History Patient Tobacco Use Status: Former Tobacco user Tobacco use type: Cigarette Substance Use Type: Marijuana Review of Systems Const All systems reviewed & are unremarkable except as noted in HPI and below Physical Exam Vital Signs: Last Vital Signs Pulse 96 09/03/24 14:02 Resp 16 09/03/24 14:02 BP 131/59 L 09/03/24 14:02 Pulse Ox 98 09/03/24 14:02 Oxygen Delivery Method Room Air 09/03/24 14:02 BMI result Body Mass Index 23.9 General: awake, alert, oriented. Answers questions appropriately. Fully engaged in examination. Skin: warm, dry, intact HEENT: Normocephalic. Hearing intact. Cardiac: External chest normal in appearance. Respiratory: No cough, audible wheezing or stridor. Abdomen: without gross distension. MS: No obvious swelling or deformities. Neurological: Oriented to person, place, time and situation. Thought process intact. Antalgic gait Psychiatric: Appropriate mood and affect. Good judgment and insight. Results Reviewed Results Reviewed: 10/17/23 XR/XR hip LT min 2V Right hip: Visualized portion of proximal right femur demonstrate no fracture. Right femoral head is well-seated within the acetabulum. Right femoral acetabular joint space is well-maintained. No significant degenerative changes of the right hip. Partially visualized IUD projects over the midline pelvis. Left hip: Visualized portion of proximal left femur demonstrate no fracture. Left femoral head is well-seated within the acetabulum. Left femoral acetabular joint space is well-maintained. No appreciable degenerative changes of the left hip. IUD projects are midline pelvis. IMPRESSION: Unremarkable radiographs of the bilateral hips. Assessment & Plan Assessment & Plan (1) Sacroiliac joint dysfunction of both sides: Code(s): M53.3 - Sacrococcygeal disorders, not elsewhere classified Category: Medical (2) Spondylolisthesis, lumbar region: Code(s): M43.16 - Spondylolisthesis, lumbar region Category: Medical Plan Sharee presented back to the office today for follow-up, 3 weeks status post bilateral therapeutic sacroiliac joint injections Reports only 30% pain relief with improvement. Does endorse some improvement in function and mobility for less than 2 weeks after the procedure. Continue with SI belt as needed Will increase gabapentin to 800 mg 3 times daily. Patient advised on cautions for use. C/W Methocarbamol 500 mg p.o. t.i.d. as needed C/W Meloxicam daily as needed Discussed options for treatment including chronic peripheral nerve stimulation and SI fusion. Informational pamphlets were given to the patient for review. She would like referral to neurosurgery to discuss SI fusion with external hardware as we do not offer this in our office. Neurosurgery eval placed, patient requesting referral to Dr. Lucio. All questions and concerns were answered, patient agrees to the plan. Follow-up after neurosurgical evaluation, sooner if needed Orders: Referrals Neurosurgery Referral M43.16 - Spondylolisthesis, lumbar region, M53.3 - Sacrococcygeal disorders, not elsewhere classified Medications: Changed From gabapentin 600 mg PO TID 90 tabs 3RF To gabapentin 800 mg PO TID 90 tabs 3RF Coding Level of Care Code Est Pt Level 4 (97522) Complex EM visit Add On G2211 Diagnoses Sacroiliac joint dysfunction of both sides M53.3 Spondylolisthesis, lumbar region M43.16
[2024-09-03 14:02] VITALS: BP 131/59; PULSE 96; RESP 16; O2SAT 98; BMI 23.9
--- OUTSIDE RECORDS SUMMARY | 2024-09-03 14:15 | XMS_ITS ---
Demographics Address [address] [place] [address] Email Address Preferred Language en Marital Status Unknown Confucianism Affiliation Unknown Race White Ethnic Group Not or Lati no Author Organization [facility] Address [address] [place] [address] Care Team Providers Care Technology Education Instructor Name Role Phone Shellie Munroe Primary Care Provider Unavail able Doug Castro Unavailable [phone] ALLERGIES No Known Allergies REASON FOR VISIT [...] directed Orally Active Trace Minerals Cu-Mn-Se-Zn Active [place] 3 Active SEROquel 25 MG DIRECTED Orally [...] Hiatal hernia (K44.9) Active confirmed Hiatal hernia (80419053) Problem Irritable bowel syndrome (K58.9) Active confirmed Irritable bowel syndrome (08936548) VITAL SIGNS BMI 25.23 kg/m2 08/28/2023 Blood pressure systolic 00 mm Hg 08/28/19 24 Blood pressure diastolic 00 mm Hg 024 Height 64 in 08/28/2023 Temperature 97.1 degrees Fahrenheit 08/28/19 24 Weight 147 lbs 08/28/2023 Encounters Encounter Location Date Provider Diagnosis [facility] [address] [place] [address] 08/28/2023 Doug Castro GERD (gastroesophageal reflux disease) [...]
--- OUTSIDE RECORDS SUMMARY | 2024-09-03 14:15 | XMS_ITS | Data Portability ---
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 evaluation of recurrent left [...] Address Organization Details Recorded Time Bilateral tinnitus 69333007270 02 Active 2021 Tinnitus, bilateral ; Note: Date Diagnosed : 08/12/2021 10:52 AM (H93.13) Not Available [facility] 4 02:17:27 Posterior rhinorrhe a 86583005 Active 2021 Postnasal drip; Note: Date Diagnosed : 08/13/2021 7:59 AM (R09.82) Not Available [facility] 4 02:18:02 Allergic rhinitis 66521677 Active 2021 Other allergic rhinitis; Note: Date Diagnosed : 10/07/2021 2:20 PM (J30.89) Not Available [facility] 4 02:17:36 Respirato ry finding 939821314 Active 2021 Feeling of foreign body in throat; Note: Date Diagnosed : 08/13/2021 8:03 AM (R09.89) Not Available [facility] 4 02:18:08 Cardiovas cular finding 359356868 Active 2021 Feeling of foreign body in throat; Note: Date Diagnosed : 08/13/2021 8:03 AM (R09.89) Not Available [facility] 4 02:18:08 Abnormal findings on diagnosti c imaging of skull and head 992470994 Active 2023 Abnormal findings on diagnosti c imaging of skull and head, not elsewhere classifie d; Note: Date Diagnosed : 09/14/2023 4:32 PM (R93.0) Not Available [facility] 4 02:17:25 Disorder of muscle 425555354 Active 2023 Other specified disorders of muscle; Note: Date Diagnosed : 08/17/2023 6:49 PM (M62.89) Not Available [facility] 4 02:17:59 Sialolith iasis 94651915 Active 2023 SHAW HILLIARD PA-C [address] [place] [address], [phone] , [place] - [facility] 4 11:27:56 Problem Notes None recorded. Procedures Surgical History Date Name Laterality Status Provider Name and Address Organization Details Recorded Time 4 salivary stone removal completed SHAW HILLIARD PA-C [address] [place] [address], [phone], [facility] - [facility] 07/03/2024 11:23:28 Imaging Results None recorded. Procedure Notes None recorded. Medical Equipment None Reported. Allergies Allergen ID Allergen Name Allergen Category Reaction Reaction Severity Criticality Documentation Date Start Date Code Code System Note Provider Name and Address Organization Details Recorded Time 09243 adhesive tape environme nt,medica tion other Not available Not available 11/27/2023 26909 UNK React ion: other react ion, Unkno wn; Not Available [facility] 4 00:52:37 Medications Name Sig Start [...] DRIVE, DRINK ALCOHOL OR TAKE ANY OTHER DIABETOLOGIST DEPRESSAN TS active Not Available Not Available No t Available buspirone 5 mg tablet 2021 active Medicatio n ID: [id number] Br and Name: buspirone Send Method: E-Prescri [...] mg tablet 2021 active Medicatio n ID: [id number] Br and Name: acyclovir Send Method: E-Prescri bed Subs Allowed: subs OK Specia l Instructi on: TAKE ONE TABLET BY MOUTH EVERY 8 HOURS FOR 5 DAYS [facility] cationGen ericName: acyclovir Not Available Not Available Not Available triamcinol one acetonide 0.1 % topical cream 2021 active Medicatio n ID: [id number] Br and Name: triamcino lone acetonide Send [...] mg tablet 2021 active Medicatio n ID: [id number] Br and Name: naproxen sodium Se nd Method: E-Prescri bed Subs Allowed: subs OK Medica tionGener icName: naproxen sodium Not Available Not Available Not Available gabapentin 300 mg capsule TAKE FIVE CAPSULES BY MOUTH EVERY DAY IN DIVIDED DOSES DISCUSSED active Not Available Not Available No t Available sertraline 25 mg tablet 2021 active Medicatio n ID: [id number] Br and Name: sertralin e Send Method: E-Prescri bed Subs Allowed: subs OK Medica tionGener icName: sertralin e Not Available Not Available Not Available Banophen 25 mg capsule 2021 active Medicatio n ID: [id number] Br and Name: Banophen Send Method: E-Prescri bed Subs Allowed: subs OK Medica tionGener icName: Banophen Not Available Not Available Not Available hydroxyzin e HCl 25 mg tablet 2021 active Medicatio n ID: [id number] Br and Name: hydroxyzi ne HCl Send [...] auto-injec tor 2021 active Medicatio n ID: [id number] Br and Name: epinephri ne Send Method: E-Prescri bed Subs Allowed: subs OK Medica tionGener icName: epinephri ne Not Available Not Available Not Available propranolo l 20 mg tablet TAKE ONE TABLET BY MOUTH THREE TIMES A DAY NEEDED FOR PALPITATI ONS active Not Available Not Available No t Available acetaminop hen 500 mg capsule 2021 active Medicatio n ID: [id number] Br and Name: acetamino phen Send Method: E-Prescri bed Subs Allowed: subs OK Medica tionGener icName: acetamino phen Not Available Not Available Not Available cholecalci ferol (vitamin D3) 125 mcg (5,000 unit) capsule TAKE ONE CAPSULE BY MOUTH EVERY DAY active Not Available Not Available No t Available loratadine 10 mg tablet 2021 active Medicatio n ID: [id number] Du ration Value: 90 Prescrib ed By Name: Tavo Mcmillan MD Brand Name: loratadin e Send Method: E-Prescri bed Subs Allowed: subs OK Specia l Instructi on: Take 1 tab daily Med icationGe nericName : loratadin e Not Available Not Available Not Available amoxicilli n 875 mg-potassi um clavulanat e 125 mg tablet 2021 active Medicatio n ID: [id number] Br and Name: amoxicill in-pot clavulana te [...] gram capsule 2021 active Medicatio n ID: [id number] Br and Name: Fiber-Cap s (psyllium husk) Sen d Method: E-Prescri bed Subs Allowed: subs OK Medica tionGener icName: Fiber-Cap s (psyllium husk) Not Available Not Available Not Available Vitamin D 2021 active Medicatio n ID: [id number] Br and Name: vitamin D Send Method: E-Prescri bed Subs Allowed: subs OK Medica tiKeshianer icName: vitamin D Not Available Not Available Not Available aripiprazo le 2 mg tablet TAKE ONE TABLET BY MOUTH EVERY DAY active Not Available Not Available No t Available acetylcarn itine 500 mg capsule 2021 active Medicatio n ID: [id number] Br and Name: acetylcar nitine Se nd Method: E-Prescri bed Subs Allowed: subs OK Medica tionGener icName: acetylcar nitine Not Available Not Available Not Available Myrbetriq 25 mg tablet,ext ended release TAKE 1 TABLET BY MOUTH DAILY. active Not Available Not Available No t Available melatonin 3 mg capsule 2021 active Medicatio n ID: [id number] Br and Name: melatonin Send Method: E-Prescri bed Subs Allowed: subs OK Medica tionGener icName: melatonin Not Available Not Available Not Available Xembify 10 gram/50 mL (20 %) subcutaneo us solution active Not Available Not Available Not Available Xembify 4 gram/20 mL (20 %) subcutaneo us solution 2021 active Medicatio n ID: [id number] Br and Name: Xembify S end Method: E-Prescri bed Subs Allowed: subs OK Medica tionGener icName: Xembify Not Available Not Available Not Available Xembify 1 gram/5 mL (20 %) subcutaneo us solution 2021 active Medicatio n ID: [id number] Br and Name: Xembify S end Method: E-Prescri bed Subs Allowed: subs OK Medica tionGener icName: Xembify Not Available Not Available Not Available Vitals Date Recorded Body weight Body mass index (BMI) Body height Provider Name and Address Organization Details Last Updated DateTime 07/03/2024 16435.3 g 24.7 kg/m2 162.56 cm Adelia Mcmahon MA [facility] 07/03/2024 10:54:21 Social History None recorded. Functional Status None recorded. Mental Status None recorded. Family History Nothing Reported. Medical History No medical history recorded. Gynecological HistoryNo gynecological history recorded. Obstetrics History GPAL:G 0 P 0 0 0 0 Past Encounters Encounter ID Performer Location Encounter Start Date Encounter Closed Date Diagnosis/Indication Diagnosis SNOMED-CT Code Diagnosis ICD10 Code Diagnosis Note [id number] TAVO MCMILLAN MD [facility] [address] [facility] [place] [address] 07/03/2024 10:33:20 07/03/2024 11:28:57 Sialolithiasis 97979985 K11.5 Health Concerns Section Related Observation LastModified by Organization Detai ls LastModified Time None Recorded Concern Status LastModified by Organization Details LastModified Time None Recorded Advance Directives Directive None Recorded Payers Encounter Date Sequence Insurance Name Policy Number Policy Dickinson Covered Member ID Dickinson Member ID Guarantor Name 07/03/2024 1 [facility] (MEDICAID REPLACEMENT - HMO) [id number] Sharee Littlejohn [id number] Sharee Littleojhn Notes Date Note Type Note Provider Name and Address Organization Details Recorded Time 07/03/2024 text/html 44-year-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 She reports associated intermittent submandibular pain that radiates down her neck. Endorses submandibular stones 2-3 times per year. She usually can remove the stones on her own. Denies oropharyngeal swelling or dryness. TAVO MCMILLAN MD [address] [place] [address], [phone], [facility] - [facility] 07/03/2024 11:47:25 OBGyn Episode No OBEpisode recorded.
--- OUTSIDE RECORDS SUMMARY | 2024-09-03 14:15 | XMS_ITS | Patient Health Record ---
Demographics Address [address] ` [place] [address] Email Address Preferred Language en Marital Status Unknown Confucianist Affiliation Unknown Race White Ethnic Group Not or Lati no Author Organization [facility] Address [address] [place] [address] Care Team Providers Care Wardrobe Consultant Name Role Phone Shellie Munroe Primary Care Provider Unavail able Doug Castro Unavailable [phone] ALLERGIES No Known Allergies REASON FOR REFERRAL [...] A DAY NEEDED Oral for 30 Active [place] 3 Active D-3-5 125 MCG (5000 UT) [...] (K21.9) Active confirmed Gastroesophagea l reflux disease (428214099) Problem Abdominal pain, acute, epigastric (R10.13) Active confirmed Epigastric pain (79607900) Problem Irritable bowel syndrome with diarrhea (K58.0) Active confirmed Irritable b owel syndrome with diarrhea (733969683) Problem Gastroesophageal reflux (K21.9) Active confirmed Esophageal re flux finding (235445965) Problem Hiatal hernia (K44.9) Active confirmed Hiatal hernia (38969349) Problem Irritable bowel syndrome (K58.9) Active confirmed Irritable b owel syndrome (62349749) PLAN OF TREATMENT Future Test Test Name Order Date UPPER GI ENDOSCOPY 12/09/2021 Insurance Providers Payer Name Payer Address Payer Phone Subscriber Number Group Number Insured Name Patient Relationship to Insured Coverage Start Date Coverage End Date [facility] [address] [address] [place], [place] [id number] DAHIANA CORDOVA Self - patient is the insured MEDICAL (GENERAL) HISTORY Medical History History ICD Code Chronic fatigue syndrome/Junie lgic Encephalomyelitis--possibly triggered by Lyme's Disease in approx. 2013-muscle weakness and pain--uses a walker and wheelchair at times Vitamin D deficiency Common variable immunodeficiency- SQ IG Xembify monthly Anxiety, depression, PTSD Right bundle branch block an d a PFO--sees a pasteurizer helper-[facility] IBS-D----well managed with diet, cannabi s vapor and edibles, Dicyclomine prn Denies HI,DM,CVA,Lung disease,renal dise ase Interstitial cystitis She describes [...] for Jesus's esophagus. Surgical History Surgery Date(Month/Year) [place] teeth extraction Frenectomy between lip and gum 2003
== END 2024-09-03 14:28 | disposition home or self-care (01) ==
PROVIDERS: PCP Internal Medicine; Visit Provider Registered Nurse Emergency
DX: M53.3 Sacrococcygeal disorders, not elsewhere classified (principal); M43.16 Spondylolisthesis, lumbar region
CPT/HCPCS: 99214; G2211

== ENCOUNTER → 2024-09-03 13:56 | Outpatient (BNVA) | payer OTHER, SELFPAY | PROVIDERS: PCP Internal Medicine; Visit Provider Registered Nurse Emergency | DX: M53.3 Sacrococcygeal disorders, not elsewhere classified (principal); M43.16 Spondylolisthesis, lumbar region | CPT/HCPCS: 99212 ==

== ENCOUNTER 2024-11-17 13:23 | Emergency (ER) | payer OTHER, SELFPAY ==
--- NOTE | ~2024-11-17 | CT_ITS ---
EXAMINATION: CT HEAD WITHOUT IV CONTRAST HISTORY: dizziness and diplopia for months. TECHNIQUE: Unenhanced helical CT of the head was performed per standard departmental protocol. Coronal and sagittal reformats of the head were also evaluated. One or more of the following techniques was used for dose reduction: Automated exposure control, adjustment of the mA and/or kV according to patient size, use of iterative reconstruction technique. DLP: 549 mGy-cm COMPARISON: Comparison is made with the prior examination dated 06/21/2022. FINDINGS: BRAIN: The brain parenchyma is unremarkable. There is normal concepcion/white differentiation. The ventricular system is normal in size and configuration. There is no mass effect or midline shift. No intra- or extra-axial fluid collections are identified. SINUSES: The visualized paranasal sinuses are clear. The mastoid air cells and middle ear cavities are well pneumatized. ORBITS: The visualized orbits are unremarkable. BONES/SOFT TISSUES: The extracranial soft tissues are unremarkable. The calvarium is intact. No suspicious lytic or sclerotic lesions. CT/CT head/brain wo IV con IMPRESSION: No acute intracranial abnormality. Electronically signed by: Doug Milner MD 11/17/2024 02:10 PM EDT
[2024-11-17 13:32] VITALS: BP 132/72; PULSE 100; RESP 19; TEMP 36.6; O2SAT 100; BMI 23.7
--- NOTE | 2024-11-17 13:39 | ECG_ITS ---
Test Reason : DIZZINESS Blood Pressure : */* mmHG Vent. Rate : 62 BPM Atrial Rate : 62 BPM P-R Int : 172 ms QRS Dur : 122 ms QT Int : 404 ms P-R-T Axes : 56 81 59 degrees QTcB Int : 410 ms Normal sinus rhythm Right bundle branch block Abnormal ECG When compared with ECG of 24-Aug-2022 13:00, Vent. rate has decreased by 43 bpm T wave inversion no longer evident in Inferior leads QT has shortened Referred By: Armaan Jones Electronically Signed By: CHERYL DOSS
--- NOTE | 2024-11-17 13:43 | ED.GENADULT ---
HPI - General Adult General Chief complaint: Dizziness Stated complaint: double vission dizzy Time Seen by Provider: 11/17/24 19:08 Source: patient Mode of arrival: ambulatory Limitations: no limitations History of Present Illness ED Provider: HPI narrative: Patient with history of anxiety depression, PTSD vertigo in the past and migraine comes here for dizziness and double vision changes for last few days got worse today with pain behind the eyes. Patient has been evaluated for multiple sclerosis about 5 years ago and MRI was negative patient has a increased anxiety and depression today she came as she was having double vision especially looking to the left side which lasted for several hours got better now also she she felt everything is moving around and off balance Related Data Home Medications ?Medication ?Instructions ?Recorded ?Confirmed acetaminophen 500 mg tablet 500 mg PO DAILY 02/13/22 09/03/24 amitriptyline 10 mg tablet 30 mg PO BEDTIME 02/13/22 09/03/24 cholecalciferol (vitamin D3) 125 125 mcg PO DAILY 02/13/22 09/03/24 mcg (5,000 unit) tablet (Vitamin D3) dicyclomine 20 mg tablet 1 tab PO TID PRN Gastrointestinal 02/13/22 09/03/24 Spasms Or Cramping melatonin 3 mg tablet 3 mg PO BEDTIME 02/13/22 09/03/24 omega 0-wlq-ulc-fish oil 900 1 cap PO DAILY 02/13/22 09/03/24 mg-1,400 mg capsule,delayed release epinephrine 0.3 mg/0.3 mL 0.3 mg IM Q4H PRN 11/30/23 09/03/24 injection, auto-injector (EpiPen) lamotrigine 200 mg tablet 200 mg PO QAM 11/30/23 09/03/24 propranolol 20 mg tablet 20 mg PO DAILY PRN Cardiac 11/30/23 09/03/24 Arrhythmia quetiapine 25 mg tablet 25 mg PO BEDTIME PRN insomnia 11/30/23 09/03/24 valacyclovir 1 gram tablet 1,000 mg PO DAILY 11/30/23 09/03/24 immune globulin,gamma(IgG)klhw 10 subcut QWEEK 01/23/24 09/03/24 gram/50 mL(20%)subcut solution (Xembify) lorazepam 0.5 mg tablet 0.5 mg PO QID PRN anxiety 01/23/24 09/03/24 mirabegron 25 mg tablet,extended 25 mg PO DAILY 02/15/24 09/03/24 release 24 hr (Myrbetriq) Previous Rx's ?Medication ?Instructions ?Recorded gabapentin 800 mg tablet 800 mg PO TID #90 tabs 09/03/24 meloxicam 7.5 mg tablet 7.5 mg PO DAILY #30 tabs 10/02/24 methocarbamol 500 mg tablet 500 mg PO TID PRN muscle spasm #90 10/02/24 tabs meclizine 25 mg tablet 25 mg PO TID PRN dizziness #20 tabs 11/17/24 Allergies Allergy/AdvReac Type Severity Reaction Status Date / Time adhesive Allergy Rash Verified 11/17/24 13:37 Review of Systems Review of Systems: Yes all other systems are reviewed and are negative [facility] Past Medical History Medical History Recurrent genital herpes Common variable agammaglobulinemia Borderline personality disorder Vitamin D deficiency Gender dysphoria Spondylolisthesis, lumbar region Groin pain, chronic, left History of substance abuse PFO (patent foramen ovale) RBBB PTSD (post-traumatic stress disorder) Anxiety and depression Encephalomyelitis Chronic fatigue syndrome Interstitial cystitis IBS (irritable bowel syndrome) Surgical History History of lingual frenulectomy Hx of wisdom tooth extraction H/O colonoscopy Social History Social History Patient Tobacco Use Status: Former Tobacco user Tobacco use type: Cigarette Use of substances other than those prescribed or required for medical reasons: Yes Substance Use Type: Marijuana Substance Use Frequency: Daily Last Used Substance: Hours (ago) Any prior treatment program specific to substance use: No Advance Directives: No Advance Directives Information Provided: No Do you have a plan to hurt others: No Plan Patient : No Physical Exam ED Vital Signs: Vital Signs - 24 hr 11/17/24 13:32 11/17/24 17:48 11/17/24 18:21 Temperature 98 F 97.1 F Pulse Rate 100 75 87 Respiratory Rate 19 14 18 Blood Pressure 132/72 121/70 112/63 Pulse Oximetry 100 100 97 Oxygen Delivery Method Room Air Room Air Room Air 11/17/24 20:00 Temperature 97.1 F Pulse Rate 87 Respiratory Rate 18 Blood Pressure 112/63 Pulse Oximetry 97 Oxygen Delivery Method Room Air BMI result Body Mass Index 23.7 Appearance: Alert. Oriented X3. No acute distress. Eyes: PERRLA, No Nystagmus EOMI no double vision fundus normal ENT: Pharynx normal. Oral Mucosa moist Neck: Normal inspection. Neck supple. CVS: Normal heart rate and rhythm. Pulses normal. Respiratory: No respiratory distress. Equal air entry bilateral, no wheezing/rales/rhonchi Abdomen: Soft and nontender. Bowel sounds are present, no mass palpable, no CVA tenderness Skin: Skin warm and dry. Normal skin color. Normal skin turgor. Extremities: No lower extremity edema. No calf tenderness Neuro: Oriented X 3. No motor deficit. No sensory deficit.No cerebellar signs , cranial nerves II-XII intact Course Course Course Narrative: RME: 44 yold female with pmh chronic pain syndorme presents to the ED for 6 months of double vision, dizziness, and intermittent right leg weakness, and headache. patient states this morning having double vision and dizziness which has been present for months. patient denies any neuro paralysis weakness. Medications Administered Discontinued Medications Generic Name Dose Route Start Last Admin Trade Name Freq PRN Reason Stop Dose Admin Meclizine HCl 25 mg 11/17/24 19:31 11/17/24 19:37 Meclizine Hcl 25 Mg Tablet PO 11/17/24 19:32 25 mg ONCE ONE Administration Medical Decision Making Medical Decision Making [facility] Narrative: Patient with ocular migraine with benign positional vertigo no focal deficit at this visual acuity and visual diamond are normal fundus benign patient advised to follow up with neurologist CT scan of the head is negative for acute labs were stable Differential Diagnosis Differential Diagnoses: The differential diagnosis associated with the presentation includes Ocular migraine/CVA/vertigo Admission/Observation Consideration of admission/observation: Escalation of care including admission/observation considered Lab Data [facility] Lab Attestation statement: I reviewed the patient's lab results. 11/17/24 14:11 11/17/24 14:11 Labs: Lab Results 11/17/24 Range/Units 14:11 WBC 8.3 (4.8-10.8) X10*3/uL RBC 4.06 L (4.20-5.50) X10*6/uL Hgb 13.3 (12.0-16.0) g/dl Hct 38.7 (37.0-47.0) % MCV 95.3 (80.0-98.0) fL MCH 32.8 (27.0-33.0) pg MCHC 34.4 (31.0-35.0) g/dl RDW 11.8 (11.0-16.0) % Plt Count 367 (160-400) X10*3/uL MPV 8.8 L (9.4-12.3) fL Immature Gran % (Auto) 0.7 H (0.0-0.4) % Neut % (Auto) 60.9 (45-73) % Lymph % (Auto) 27.1 (20-40) % [place] % (Auto) 7.7 (2-11) % Eos % (Auto) 3.1 (0-4) % Baso % (Auto) 0.5 (0-2) % Lymph # (Auto) 2.3 (1.2-4.9) X10*3/uL [place] # (Auto) 0.6 (0.1-1.2) X10*3/uL Eos # (Auto) 0.3 (0.0-0.4) X10*3/uL Baso # (Auto) 0.0 (0.0-0.2) X10*3/uL Abs Immat Gran (auto) 0.06 H (0.00-0.03) X10*3/uL Absolute Neuts (auto) 5.1 (2.0-8.3) x10*3/uL Absolute Nucleated RBC 0.000 (0.0-0.012) X10*3/uL Nucleated RBC % (auto) 0.0 (0.0-0.2) /100WBC PT 11.4 (10.9-12.4) SEC INR 1.0 (0.9-1.1) APTT 33.9 (26.0-36.8) SEC Sodium 140 (135-145) mmol/L Potassium 4.5 (3.3-5.1) mmol/L Chloride 106 (96-108) mmol/L Carbon Dioxide 27 (22-29) mmol/L Anion Gap 12 (12-20) BUN 7 L (9-16) mg/dL Creatinine 0.69 (0.5-1.4) mg/dL Estim Creat Clear Calc 91.7 Estimated GFR > 60 Random Glucose 97 (60-115) mg/dL Calcium 9.5 (8.4-10.2) mg/dL Total Bilirubin 0.3 (0.0-1.0) mg/dL AST 24 (5-31) U/L ALT 11 (0-31) U/L Alkaline Phosphatase 64 (39-117) U/L Troponin I High Sens < 2.7 (<3.5-17.0) ng/L Total Protein 7.7 (6.5-8.0) g/dL Albumin 4.5 (3.5-5.0) g/dL Independent Interpretation I performed an independent interpretation of an: CT Scan Interpretation: No acute Normal sinus rhythm heart rate 62 beats per minute right bundle-branch block no acute STT wave changes no acute ischemia Discharge Plan Discharge Clinical Impression: Benign paroxysmal positional vertigo, Ocular migraine Patient Disposition: Home, Self-Care Instructions: Benign Paroxysmal Positional Vertigo (ED), Ocular Migraine (ED) Additional Instructions: Continue take your medication Your symptoms are likely from benign positional vertigo and ocular migraine Follow up with PCP/neurologist Meclizine for severe dizziness Care and cautions as advised Prescriptions: New meclizine 25 mg tablet 25 mg PO TID PRN (Reason: dizziness) Qty: 20 0RF No Action meloxicam 7.5 mg tablet 7.5 mg PO DAILY Qty: 30 3RF methocarbamol 500 mg tablet 500 mg PO TID PRN (Reason: muscle spasm) Qty: 90 1RF Rx Instructions: No driving while taking this medication. Do no take with alcohol or other SALES REPRESENTATIVE CONSULTANT Depressants melatonin 3 mg Tablet 3 mg PO BEDTIME acetaminophen 500 mg Tablet 500 mg PO DAILY dicyclomine 20 mg tablet 1 tab PO TID PRN (Reason: Gastrointestinal Spasms Or Cramping) amitriptyline 10 mg Tablet 30 mg PO BEDTIME cholecalciferol (vitamin D3) [Vitamin D3] 125 mcg (5,000 unit) Tablet 125 mcg PO DAILY Stewart 3 Fish Oil 900-1,400 mg Capsule,Delayed Release(Dr/Ec) 1 cap PO DAILY valacyclovir 1 gram tablet 1,000 mg PO DAILY lamotrigine 200 mg tablet 200 mg PO QAM quetiapine 25 mg tablet 25 mg PO BEDTIME PRN (Reason: insomnia) propranolol 20 mg tablet 20 mg PO DAILY PRN (Reason: Cardiac Arrhythmia) epinephrine [EpiPen] 0.3 mg/0.3 mL auto-injector 0.3 mg IM Q4H PRN lorazepam 0.5 mg tablet 0.5 mg PO QID PRN (Reason: anxiety) Xembify 10 gram/50 mL (20 %) solution subcut QWEEK mirabegron [Myrbetriq] 25 mg tablet extended release 24 hr 25 mg PO DAILY gabapentin 800 mg tablet 800 mg PO TID Qty: 90 3RF Referrals: Theresa Saravia MD [Physician] - 2 weeks Interventions: ED Discharge Assessment Last Done: 11/17/24 20:00 Discharge Date/Time: 11/17/24 20:02 Print Language: Macedonian
[2024-11-17 14:25] LABS: MANUAL DIFF FLAG NO
[2024-11-17 14:26] LABS: Basophils Percent Auto 0.5 % (0-2); Eosinophils Absolute Auto 0.3 X10*3/uL (0.0-0.4); Eosinophils Percent Auto 3.1 % (0-4); Hematocrit 38.7 % (37.0-47.0); Hemoglobin 13.3 g/dl (12.0-16.0); Imm Gran Abs Auto 0.06 X10*3/uL (0.00-0.03); Imm Gran Pct Auto 0.7 % (0.0-0.4); Lymphocytes Absolute Auto 2.3 X10*3/uL (1.2-4.9); Lymphocytes Percent Auto 27.1 % (20-40); Mean Corpuscular HGB Conc 34.4 g/dl (31.0-35.0); Mean Corpuscular Hemoglobin 32.8 pg (27.0-33.0); Mean Corpuscular Volume 95.3 fL (80.0-98.0); Mean Platelet Volume 8.8 fL (9.4-12.3); Monocytes Absolute Auto 0.6 X10*3/uL (0.1-1.2); Monocytes Percent Auto 7.7 % (2-11); Neutrophils Absolute Auto 5.1 x10*3/uL (2.0-8.3); Neutrophils Percent Auto 60.9 % (45-73); Platelet Count 367 X10*3/uL (160-400); Red Blood Count 4.06 X10*6/uL (4.20-5.50); Red Cell Distribution Width 11.8 % (11.0-16.0); White Blood Count 8.3 X10*3/uL (4.8-10.8)
[2024-11-17 14:32] LABS: Prothrombin Time 11.4 SEC (10.9-12.4)
[2024-11-17 14:34] LABS: Partial Thromboplastin Time 33.9 SEC (26.0-36.8)
[2024-11-17 14:41] LABS: Alanine Aminotransferase 11 U/L (0-31); Albumin Level 4.5 g/dL (3.5-5.0); Alkaline Phosphatase 64 U/L (39-117); Anion Gap 12 (12-20); Aspartate Amino Transferase 24 U/L (5-31); Bilirubin Total 0.3 mg/dL (0.0-1.0); Blood Urea Nitrogen 7 mg/dL (9-16); Calcium 9.5 mg/dL (8.4-10.2); Carbon Dioxide 27 mmol/L (22-29); Chloride 106 mmol/L (96-108); Creatinine Clr Calc Pharmacy 91.7; Estimated Glomerular Filt Rate > 60; Glucose Random 97 mg/dL (60-115); Potassium 4.5 mmol/L (3.3-5.1); Sodium 140 mmol/L (135-145); Total Protein 7.7 g/dL (6.5-8.0)
[2024-11-17 14:52] LABS: Troponin-I High Sensitivity < 2.7 ng/L (<3.5-17.0)
[2024-11-17 17:48] VITALS: BP 121/70; PULSE 75; RESP 14; O2SAT 100
--- OUTSIDE RECORDS SUMMARY | 2024-11-17 17:56 | XMS_ITS ---
Demographics Address [address] [place] [address] Email Address Preferred Language en Marital Status Unknown Methodist Affiliation Unknown Race White Ethnic Group Not or Lati no Author Organization [facility] Address [address] [place] [address] Care Team Providers Care Surveyor Rod Helper Name Role Phone Shellie Munroe Primary Care Provider Unavail able Doug Castro Unavailable [phone] Allergies No Known Allergies REASON FOR VISIT f/u office visit from her upper endo Medications Medication SIG (Take, Route, Frequency, Duration) Notes [...] directed Orally Active Trace Minerals Cu-Mn-Se-Zn Active [place] 3 Active SEROquel 25 MG DIRECTED Orally O nce a day Active Gabapentin 300 MG 1 capsule Orally Onc e a day for 30 day(s) Active Social History Tobacco Use: Social History Observation Description Date Details (start date - stop date) Former Smoker NA - NA Tobacco Use/Smoking Question Answer Notes Patient is a former smoker How long has it been since you last smoked? 5-10 years Alcohol Screen Question Answer Notes Did you have a drink containing alcohol in the p ast year? No Points 0 Interpretation Negative Section Notes: Nonsmoker; no sig alcohol dont drink for 11 years 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, benzodiazepenes uses canabis Problems Problem Type SNOMED Code ICD Code Onset Dates Problem Status W/U Status Risk Notes Problem Hiatal hernia (62611043) Hiatal hernia (K44.9) Active confirmed Problem Irritable bowel syndrome (K58.9) Active confirmed Vital Signs Temperature 97.1 degrees Fahrenheit 08/28/19 24 Blood pressure systolic 00 mm Hg 08/28/19 24 Blood pressure diastolic 00 mm Hg 024 Height 64 in 08/28/2023 Weight 147 lbs 08/28/2023 BMI 25.23 kg/m2 08/28/2023 Encounters Encounter Location Date Provider Diagnosis [facility] [address] [place] [address] 08/28/2023 Doug Castro GERD (gastroesophageal reflux disease) K21.9 ; Hiatal hernia K44.9 and Irritable bowel syndrome K58.9 Assessments Encounter Date Diagnosis (ICD Code) Assessment Notes Treatment Notes Treatment Clinical Notes Section Notes 08/28/2023 GERD (gastroesopha geal reflux disease) (ICD-10 - K21.9) Observe things in regard to the hiatal hernia and reflux. Call if GI symptoms worsen. You should have a screening colonoscopy at age 47. Overall, Sharee appears quite well from a from a general clinical standpoint and specifically from a GI standpoint. We did review her upper endoscopy results in detail and I reassured her in regard to the finding of the small hiatal hernia. At this point this appears to be asymptomatic and I do not think she needs any type of medical or surgical therapy at this time. We did review that trying to eat small meals, watching her weight, and not eating close to bedtime should continue to help the hiatal hernia remained asymptomatic. I advised her that I do not think the hiatal hernia would need any particular followup and she would not need any further upper endoscopies going forward as long as things remain stable. We did review her underlying irritable bowel syndrome and that she should certainly continue to use dicyclomine as needed for that. We did review the association of IBS with fibromyalgia. We did review that she should undergo a screening colonoscopy at age 47. If things remain well from a GI standpoint she will otherwise see me on a p.r.n. basis. Sharee was comfortable with this plan. Thank you again for allowing me to have participated in Sharee's care. Please do not hesitate to contact me if I can be of any further assistance in the future. 08/28/2023 Hiatal hernia (ICD-10 - K44.9) Overall, Sharee appears quite well from a from a general clinical standpoint and specifically from a GI standpoint. We did review her upper endoscopy results in detail and I reassured her in regard to the finding of the small hiatal hernia. At this point this appears to be asymptomatic and I do not think she needs any type of medical or surgical therapy at this time. We did review that trying to eat small meals, watching her weight, and not eating close to bedtime should continue to help the hiatal hernia remained asymptomatic. I advised her that I do not think the hiatal hernia would need any particular followup and she would not need any further upper endoscopies going forward as long as things remain stable. We did review her underlying irritable bowel syndrome and that she should certainly continue to use dicyclomine as needed for that. We did review the association of IBS with fibromyalgia. We did review that she should undergo a screening colonoscopy at age 47. If things remain well from a GI standpoint she will otherwise see me on a p.r.n. basis. Sharee was comfortable with this plan. Thank you again for allowing me to have participated in Sharee's care. Please do not hesitate to contact me if I can be of any further assistance in the future. 08/28/2023 Irritable bowel syndrome (ICD-10 - K58.9) Overall, Sharee appears quite well from a from a general clinical standpoint and specifically from a GI standpoint. We did review her upper endoscopy results in detail and I reassured her in regard to the finding of the small hiatal hernia. At this point this appears to be asymptomatic and I do not think she needs any type of medical or surgical therapy at this time. We did review that trying to eat small meals, watching her weight, and not eating close to bedtime should continue to help the hiatal hernia remained asymptomatic. I advised her that I do not think the hiatal hernia would need any particular followup and she would not need any further upper endoscopies going forward as long as things remain stable. We did review her underlying irritable bowel syndrome and that she should certainly continue to use dicyclomine as needed for that. We did review the association of IBS with fibromyalgia. We did review that she should undergo a screening colonoscopy at age 47. If things remain well from a GI standpoint she will otherwise see me on a p.r.n. basis. Sharee was comfortable with this plan. Thank you again for allowing me to have participated in Sharee's care. Please do not hesitate to contact me if I can be of any further assistance in the future. Plan Of Treatment Treatment Notes Assessment Notes GERD (gastroesophageal reflux disease) O bserve things in regard to the hiatal hernia and reflux. Call if GI symptoms worsen. You should have a screening colonoscopy at age 47. Next Appt Details Follow Up: prn, Reason: Provider Name:Doug Castro , 02/24/2025 10:50:00 AM, [address] [place] [address], [address], [place], [address], Progress Notes * ELA CORDOVAOB:1980 ([age] yo F)Acc No.[id number]:08/28/2023 Progress Notes Patient:?SHAREE CORDOVA Provider:?Doug Castro MD :1980???Age:43 Y???Sex:Female D ate:08/28/2023 Address:[address] [place], [place] [id number] Pcp:Shellie Munroe Subjective: * Chief Complaints: * ???F/u office visit from her upper endo * HPI: ???incontinence:? I saw Sharee in followup today in regard to her history of a hiatal hernia and abdominal discomfort. ?I last saw Sharee is March 2022, at which time she underwent an upper endoscopy that was completely normal, other than a small hiatal hernia. There was no evidence of any esophagitis, gastritis, or ulcer disease. Duodenal biopsies were negative for celiac disease, gastric biopsies were negative for H. pylori, and esophageal biopsies were negative for Jesus's esophagus. Since the procedure she reports that she has been doing well from a GI standpoint. She has not had any particular issues with heartburn, dysphagia, anorexia, early satiety, nausea, nor vomiting. She describes her bowel movements are fairly regular and there's been no sign of hematochezia nor melena. She denies any jaundice, weight loss, nor fevers. She denies any specific abdominal pain, but does have some generalized lower abdominal discomfort with radiation into her legs. The lower abdominal discomfort does not seem to be related to anything such as meals nor bowel movements. ?She does continue to have issues with her fibromyalgia and somatic complaints. She describes having been diagnosed with some lower back issues including problems with L5-S1 and spondylolisthesis. ?She does describe using occasional dicyclomine for some loose bowel movements and/or lower abdominal cramps with relief. ?Laboratories in August of 2022 revealed a completely normal CBC, normal chemistries and renal function, and completely normal liver profile. * ROS:?General/Constitutional:?Change in appetite?denies.?Chills?denies.?Fatigue?admits.?Ophthalmologic:?Comments?all negative.?ENT:?Comments?all negative.?Respiratory:?hemoptysis?denies.?Cough?denies.?Cardiovascular:?Chest pain?denies.?Orthopnea?denies.?Gastrointestinal:?Comments?See HPI for details.?Genitourinary:?Patient complaining of?Pain from interstitial cystitis.?Hematuria?denies.?Musculoskeletal:?Painful joints?denies.?Weakness?admits.?Skin:?Itching?denies.?Rash?denies.?Neurologic:?Headache?denies.?Seizures?denies.?Psychiatric:?Comments?Per [facility].? * Medical History:? * Surgical History:?[place] ch[place] th extraction Frenectomy between lip and gum 2003 * Hospitalization/Major Diagno stic Procedure:?No Hospitalization History. * Family History:?Father: francois de dios?Mother: alive.? No known hx of colon cancer, IBD, nor celiac disease. * Social History:?Tobacco Use:?Tobacco Use/Smoking?Patient is a?former smoker,?How long has it been since you last smoked??5-10 years.?Drugs/Alcohol:?Alcohol Screen?Did you have a drink containing alcohol in the past year??No,?Points?0,?Interpretation?Negative.?Miscellaneous:?Marital status: Single. 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 * Medications:?TakingSEROquel 25 MG Tablet DIRECTED Orally Once a dayGabapentin 300 MG Capsule 1 capsule Orally Once a dayTrace Minerals Cu-Mn-Se-Zn [place] 3 Acetyl L-Carnitine Probiotic - Tablet Delayed Release as directed Orally N-Acetyl Cysteine 600 MG Tablet as directed Orally Naproxen Sodium 220 MG Capsule 1 capsule with food or milk as needed Orally every 12 hrs, Notes: PRNAcetaminophen 500 MG Capsule 1 capsule as needed Orally every 6 hrsBanophen 25 MG Tablet 1 tablet at bedtime as needed Orally Once a dayXembify 1 GM/5ML Solution Subcutaneous lamoTRIgine 100 MG Tablet Oral Amitriptyline HCl 10 MG Tablet TAKE 4 TABLETS BY MOUTH NIGHTLY AT BEDTIME. Oral Once a dayPropranolol HCl 20 MG Tablet TAKE ONE TABLET BY MOUTH THREE TIMES A DAY NEEDED Oral D-3-5 125 MCG (5000 UT) Capsule TAKE ONE CAPSULE BY MOUTH EVERY DAY Oral LORazepam 0.5 MG Tablet TAKE ONE TABLET BY MOUTH EVERY 8 HOURS NEEDED FOR ANXIETY Oral Dicyclomine HCl 20 MG Tablet Oral Myrbetriq 25 MG Tablet Extended Release 24 Hour Oral Taking SEROquel 25 MG Tablet DIRECTED Orally Once a dayTaking Gabapentin 300 MG Capsule 1 capsule Orally Once a dayTaking Trace Minerals Cu-Mn-Se-Zn Taking [place] 3 Taking Acetyl L-Carnitine Taking Probiotic - Tablet Delayed Release as directed Orally Taking N-Acetyl Cysteine 600 MG Tablet as directed Orally Taking Naproxen Sodium 220 MG Capsule 1 capsule with food or milk as needed Orally every 12 hrs, Notes: PRNTaking Acetaminophen 500 MG Capsule 1 capsule as needed Orally every 6 hrsTaking Banophen 25 MG Tablet 1 tablet at bedtime as needed Orally Once a dayTaking Xembify 1 GM/5ML Solution Subcutaneous Taking lamoTRIgine 100 MG Tablet Oral Taking Amitriptyline HCl 10 MG Tablet TAKE 4 TABLETS BY MOUTH NIGHTLY AT BEDTIME. Oral Once a dayTaking Propranolol HCl 20 MG Tablet TAKE ONE TABLET BY MOUTH THREE TIMES A DAY NEEDED Oral Taking D-3-5 125 MCG (5000 UT) Capsule TAKE ONE CAPSULE BY MOUTH EVERY DAY Oral Taking LORazepam 0.5 MG Tablet TAKE ONE TABLET BY MOUTH EVERY 8 HOURS NEEDED FOR ANXIETY Oral Taking Dicyclomine HCl 20 MG Tablet Oral Taking Myrbetriq 25 MG Tablet Extended Release 24 Hour Oral DiscontinuedLoratadine 10 MG Tablet 1 tablet Orally Once a dayL-Theanine Melatonin Pumpkin Seed Oil - Capsule as directed Orally Lysine 500 MG Tablet as directed Orally Soluble Fiber Acyclovir 400 MG Tablet Oral busPIRone HCl 5 MG Tablet TAKE 1 TABLET BY MOUTH TWICE A DAY FOR 2 WEEKS, THEN DECREASE TO HALF A TABLET TWO TIMES A DAY Oral hydrOXYzine HCl 25 MG Tablet Oral Medication List reviewed and reconciled with the patientDiscontinued Loratadine 10 MG Tablet 1 tablet Orally Once a dayDiscontinued L-Theanine Discontinued Melatonin Discontinued Pumpkin Seed Oil - Capsule as directed Orally Discontinued Lysine 500 MG Tablet as directed Orally Discontinued Soluble Fiber Discontinued Acyclovir 400 MG Tablet Oral Discontinued busPIRone HCl 5 MG Tablet TAKE 1 TABLET BY MOUTH TWICE A DAY FOR 2 WEEKS, THEN DECREASE TO HALF A TABLET TWO TIMES A DAY Oral Discontinued hydrOXYzine HCl 25 MG Tablet Oral Medication List reviewed and reconciled with the patient * Allergies:?N.K.D.A.yes[Aller gies Verified] Objective: * Vitals:?Wt: 147 lbs, Ht: 64 in, BMI:25.23 Index, BP: 00/00 mm Hg, Temp: 97.1. * Examination: ???General Examination: ?GENERAL APPEARANCE:?pleasant, well nourished, well developed, in no acute distress.?EYES:?sclera non-icteric.?ORAL CAVITY:?mucosa moist.?NECK/THYROID:?no cervical lymphadenopathy, neck supple.?SKIN:?nonjaundiced, no spider angiomata.?HEART:?S1, S2 normal.?LUNGS:?clear to auscultation bilaterally.?ABDOMEN:?normal bowel sounds, no guarding or rigidity, no guarding or rigidity, no masses palpable, soft, nontender, nondistended.?EXTREMITIES:?no edema.?NEUROLOGIC:?alert and oriented.? Assessment: * Assessment: 1.?GERD (gastroesophageal re flux disease) - K21.9 (Primary)?2.?Hiatal hernia - K44.9?3.?Irritable bowel syndrome - K58.9? Overall, Sharee appears quite well from a from a general clinical standpoint and specifically from a GI standpoint. We did review her upper endoscopy results in detail and I reassured her in regard to the finding of the small hiatal hernia. At this point this appears to be asymptomatic and I do not think she needs any type of medical or surgical therapy at this time. We did review that trying to eat small meals, watching her weight, and not eating close to bedtime should continue to help the hiatal hernia remained asymptomatic. I advised her that I do not think the hiatal hernia would need any particular followup and she would not need any further upper endoscopies going forward as long as things remain stable. We did review her underlying irritable bowel syndrome and that she should certainly continue to use dicyclomine as needed for that. We did review the association of IBS with fibromyalgia. We did review that she should undergo a screening colonoscopy at age 47. If things remain well from a GI standpoint she will otherwise see me on a p.r.n. basis. Sharee was comfortable with this plan. Thank you again for allowing me to have participated in Sharee's care. Please do not hesitate to contact me if I can be of any further assistance in the future. Plan: * Treatment: * Procedure Codes:?1036F TOBAC CO [id number] BP SCR NOT PRFRM REC REASON NOS * Follow Up:?prn * * Sign off status: Completed true * Provider:?Doug Castro MD Date:? 024 Generated for Tae araiza/Elo/eTransmitting on:?11/17/2024 05:56 PM EDT History and Physical Notes * HPI (History of Present Illness) Category Sub-Category Detail Notes Category Not es incontinence I saw Sharee in followup today in regard to her history of a hiatal hernia and abdominal discomfort. I last saw Sharee is March 2022, at which time she underwent an upper endoscopy that was completely normal, other than a small hiatal hernia. There was no evidence of any esophagitis, gastritis, or ulcer disease. Duodenal biopsies were negative for celiac disease, gastric biopsies were negative for H. pylori, and esophageal biopsies were negative for Jesus's esophagus. Since the procedure she reports that she has been doing well from a GI standpoint. She has not had any particular issues with heartburn, dysphagia, anorexia, early satiety, nausea, nor vomiting. She describes her bowel movements are fairly regular and there's been no sign of hematochezia nor melena. She denies any jaundice, weight loss, nor fevers. She denies any specific abdominal pain, but does have some generalized lower abdominal discomfort with radiation into her legs. The lower abdominal discomfort does not seem to be related to anything such as meals nor bowel movements. She does continue to have issues with her fibromyalgia and somatic complaints. She describes having been diagnosed with some lower back issues including problems with L5-S1 and spondylolisthesis. She does describe using occasional dicyclomine for some loose bowel movements and/or lower abdominal cramps with relief. Laboratories in August of 2022 revealed a completely normal CBC, normal chemistries and renal function, and completely normal liver profile. Examination Category Sub-Category Detail Notes Category Not es General Examination GENERAL APPEARANCE: pleasant , well [...]
--- OUTSIDE RECORDS SUMMARY | 2024-11-17 17:56 | XMS_ITS | Patient Health Record ---
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 Name Role Phone Shellie Munroe Primary Care Provider Unavail able Doug Castro Unavailable [phone] Allergies No Known Allergies Reason For Referral No Information Medications Medication SIG (Take, Route, Frequency, Duration) [...] A DAY NEEDED Oral for 30 Active [place] 3 Active D-3-5 125 MCG (5000 UT) [...] Xembify 1 GM/5ML Subcutaneous for 30 Active Immunizations Vaccine Route Administration Date Status Comme nts Influenza Unknown 12/09/2021 Refused Social History Tobacco Use: Social History Observation [...] Negative Section Notes: Nonsmoker; no sig alcohol 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, benzodiazepenes Nonsmoker; no sig alcohol dont drink for 11 years 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, benzodiazepenes uses canabis Problems Problem Type SNOMED Code ICD Code Onset Dates Problem Status W/U Status Risk Notes Problem Irritable bowel syndrome (K58.9) Active confirmed Problem Irritable bowel syndrome with diarrhea (632654671) Irritable bowel syndrome with diarrhea (K58.0) Active confirmed Problem Hiatal hernia (58731883) Hiatal hernia (K44.9) Active confirmed Problem Gastroesophageal reflux disease (861065298) GERD (gastroesophageal reflux disease) (K21.9) Active confirmed Problem Epigastric pain (76206312) Abdominal pain, acute, epigastric (R10.13) Active confirmed Problem Esophageal reflux finding (628890082) Gastroesophageal reflux (K21.9) Active confirmed Plan Of Treatment Future Test Test Name Order Date UPPER GI ENDOSCOPY 12/09/2021 Next Appt Details Provider Name:Doug Castro , 02/24/2025 10:50:00 AM, [address] [place] [address], [facility] [address], [place], [address], Insurance Providers Payer Name Payer Address Payer Phone Subscriber Number Group Number Insured Name Patient Relationship to Insured Coverage Start Date Coverage End Date [facility] [address] [address] [place], [place] [id number] DAHIANA CORDOVA Self - patient is the insured Medical (General) History Medical History History ICD Code Chronic fatigue syndrome/Junie lgic Encephalomyelitis--possibly triggered by Lyme's Disease in approx. 2013-muscle weakness and pain--uses a walker and wheelchair at times Vitamin D deficiency Common variable immunodeficiency- SQ IG Xembify monthly Anxiety, depression, PTSD Right bundle branch block an d a PFO--[facility]----well managed with diet, cannabi s vapor and edibles, Dicyclomine prn Denies [place],DM,CVA,Lung disease,renal dise ase Interstitial cystitis She describes [...] for Jesus's esophagus. Surgical History Surgery Date(Month/Year) [place] teeth extraction Frenectomy between lip and gum 2003
--- OUTSIDE RECORDS SUMMARY | 2024-11-17 17:56 | XMS_ITS | Data Portability ---
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 presents for evaluation of recurrent left [...] Address Organization Details Recorded Time Bilateral tinnitus 43497870757 02 Active 2021 Tinnitus, bilateral ; Note: Date Diagnosed : 08/12/2021 10:52 AM (H93.13) Not Available [facility] 4 02:17:27 Posterior rhinorrhe a 13691670 Active 2021 Postnasal drip; Note: Date Diagnosed : 08/13/2021 7:59 AM (R09.82) Not Available [facility] 4 02:18:02 Allergic rhinitis 01885595 Active 2021 Other allergic rhinitis; Note: Date Diagnosed : 10/07/2021 2:20 PM (J30.89) Not Available [facility] 4 02:17:36 Respirato ry finding 787901716 Active 2021 Feeling of foreign body in throat; Note: Date Diagnosed : 08/13/2021 8:03 AM (R09.89) Not Available [facility] 4 02:18:08 Cardiovas cular finding 885296721 Active 2021 Feeling of foreign body in throat; Note: Date Diagnosed : 08/13/2021 8:03 AM (R09.89) Not Available [facility] 4 02:18:08 Abnormal findings on diagnosti c imaging of skull and head 140058593 Active 2023 Abnormal findings on diagnosti c imaging of skull and head, not elsewhere classifie d; Note: Date Diagnosed : 09/14/2023 4:32 PM (R93.0) Not Available [facility] 4 02:17:25 Disorder of muscle 983254125 Active 2023 Other specified disorders of muscle; Note: Date Diagnosed : 08/17/2023 6:49 PM (M62.89) Not Available [facility] 4 02:17:59 Sialolith iasis 87494736 Active 2023 SHAW HILLIARD PA-C [address] [place] [address], [phone] , [place] - [facility] 4 11:27:56 Problem Notes None recorded. Procedures Surgical History Date Name Laterality Status Provider Name and Address Organization Details Recorded Time 4 salivary stone removal completed SHAW HILLIARD PA-C [address] [place] [address], [phone], [facility] - [facility] 07/03/2024 11:23:28 Imaging Results None recorded. Procedure Notes None recorded. Medical Equipment None Reported. Allergies Allergen ID Allergen Name Allergen Category Reaction Reaction Severity Criticality Documentation Date Start Date Code Code System Note Provider Name and Address Organization Details Recorded Time 92055 adhesive tape environme nt,medica tion other Not available Not available 11/27/2023 64546 UNK React ion: other react ion, Unkno wn; Not Available [facility] 4 00:52:37 Medications Name Sig Start Date [...] DRIVE, DRINK ALCOHOL OR TAKE ANY OTHER BASEBALL HAND SEWER DEPRESSAN TS active Not Available Not Available No t Available buspirone 5 mg tablet 2021 active Medicatio n ID: [id number] Br and Name: buspirone Send Method: E-Prescri [...] mg tablet 2021 active Medicatio n ID: [id number] Br and Name: acyclovir Send Method: E-Prescri bed Subs Allowed: subs OK Specia l Instructi on: TAKE ONE TABLET BY MOUTH EVERY 8 HOURS FOR 5 DAYS [facility] cationGen ericName: acyclovir Not Available Not Available Not Available triamcinol one acetonide 0.1 % topical cream 2021 active Medicatio n ID: [id number] Br and Name: triamcino lone acetonide Send [...] mg tablet 2021 active Medicatio n ID: [id number] Br and Name: naproxen sodium Se nd Method: E-Prescri bed Subs Allowed: subs OK Medica tionGener icName: naproxen sodium Not Available Not Available Not Available gabapentin 300 mg capsule TAKE FIVE CAPSULES BY MOUTH EVERY DAY IN DIVIDED DOSES DISCUSSED active Not Available Not Available No t Available sertraline 25 mg tablet 2021 active Medicatio n ID: [id number] Br and Name: sertralin e Send Method: E-Prescri bed Subs Allowed: subs OK Medica tionGener icName: sertralin e Not Available Not Available Not Available Banophen 25 mg capsule 2021 active Medicatio n ID: [id number] Br and Name: Banophen Send Method: E-Prescri bed Subs Allowed: subs OK Medica tionGener icName: Banophen Not Available Not Available Not Available hydroxyzin e HCl 25 mg tablet 2021 active Medicatio n ID: [id number] Br and Name: hydroxyzi ne HCl Send [...] auto-injec tor 2021 active Medicatio n ID: [id number] Br and Name: epinephri ne Send Method: E-Prescri bed Subs Allowed: subs OK Medica tionGener icName: epinephri ne Not Available Not Available Not Available propranolo l 20 mg tablet TAKE ONE TABLET BY MOUTH THREE TIMES A DAY NEEDED FOR PALPITATI ONS active Not Available Not Available No t Available acetaminop hen 500 mg capsule 2021 active Medicatio n ID: [id number] Br and Name: acetamino phen Send Method: E-Prescri bed Subs Allowed: subs OK Medica tionGener icName: acetamino phen Not Available Not Available Not Available cholecalci ferol (vitamin D3) 125 mcg (5,000 unit) capsule TAKE ONE CAPSULE BY MOUTH EVERY DAY active Not Available Not Available No t Available loratadine 10 mg tablet 2021 active Medicatio n ID: [id number] Du ration Value: 90 Prescrib ed By Name: Tavo Mcmillan MD Brand Name: loratadin e Send Method: E-Prescri bed Subs Allowed: subs OK Specia l Instructi on: Take 1 tab daily Med icationGe nericName : loratadin e Not Available Not Available Not Available amoxicilli n 875 mg-potassi um clavulanat e 125 mg tablet 2021 active Medicatio n ID: [id number] Br and Name: amoxicill in-pot clavulana te [...] gram capsule 2021 active Medicatio n ID: [id number] Br and Name: Fiber-Cap s (psyllium husk) Sen d Method: E-Prescri bed Subs Allowed: subs OK Medica tionGener icName: Fiber-Cap s (psyllium husk) Not Available Not Available Not Available Vitamin D 2021 active Medicatio n ID: [id number] Br and Name: vitamin D Send Method: E-Prescri bed Subs Allowed: subs OK Medica tiKeshianer icName: vitamin D Not Available Not Available Not Available aripiprazo le 2 mg tablet TAKE ONE TABLET BY MOUTH EVERY DAY active Not Available Not Available No t Available acetylcarn itine 500 mg capsule 2021 active Medicatio n ID: [id number] Br and Name: acetylcar nitine Se nd Method: E-Prescri bed Subs Allowed: subs OK Medica tionGener icName: acetylcar nitine Not Available Not Available Not Available Myrbetriq 25 mg tablet,ext ended release TAKE 1 TABLET BY MOUTH DAILY. active Not Available Not Available No t Available melatonin 3 mg capsule 2021 active Medicatio n ID: [id number] Br and Name: melatonin Send Method: E-Prescri bed Subs Allowed: subs OK Medica tionGener icName: melatonin Not Available Not Available Not Available Xembify 10 gram/50 mL (20 %) subcutaneo us solution active Not Available Not Available Not Available Xembify 4 gram/20 mL (20 %) subcutaneo us solution 2021 active Medicatio n ID: [id number] Br and Name: Xembify S end Method: E-Prescri bed Subs Allowed: subs OK Medica tionGener icName: Xembify Not Available Not Available Not Available Xembify 1 gram/5 mL (20 %) subcutaneo us solution 2021 active Medicatio n ID: [id number] Br and Name: Xembify S end Method: E-Prescri bed Subs Allowed: subs OK Medica tionGener icName: Xembify Not Available Not Available Not Available Vitals Date Recorded Body weight Body mass index (BMI) Body height Provider Name and Address Organization Details Last Updated DateTime 07/03/2024 86136.3 g 24.7 kg/m2 162.56 cm Adelia Mcmahon MA [facility] 07/03/2024 10:54:21 Social History None recorded. Functional Status None recorded. Mental Status None recorded. Family History Nothing Reported. Medical History No medical history recorded. Gynecological HistoryNo gynecological history recorded. Obstetrics History GPAL:G 0 P 0 0 0 0 Past Encounters Encounter ID Performer Location Encounter Start Date Encounter Closed Date Diagnosis/Indication Diagnosis SNOMED-CT Code Diagnosis ICD10 Code Diagnosis Note [id number] SHAW HILLIARD PA-C [facility] [address] [place] [address] 07/03/2024 10:33:20 07/03/2024 11:28:57 Sialolithiasis 71969080 K11.5 Health Concerns Section Related Observation LastModified by Organization Detai ls LastModified Time None Recorded Concern Status LastModified by Organization Details LastModified Time None Recorded Advance Directives Directive None Recorded Payers Encounter Date Sequence Insurance Name Policy Number Policy Dickinson Covered Member ID Dickinson Member ID Guarantor Name 07/03/2024 1 [facility] (MEDICAID REPLACEMENT - HMO) [id number] Sharee Littlejohn [id number] Sharee Littlejohn Notes Date Note Type Note Provider Name and Address Organization Details Recorded Time 07/03/2024 text/html 44-year-old fema le with asa'carsarmiut syndrome presents for evaluation of recurrent left submandibular stones. She reports associated intermittent submandibular pain that radiates down her neck. Endorses submandibular stones 2-3 times per year. She usually can remove the stones on her own. Denies oropharyngeal swelling or dryness. TAVO MCMILLAN MD [address] [place] [address], [place], [address], [place] - [facility] 07/03/2024 11:47:25 OBGyn Episode No OBEpisode recorded.
[2024-11-17 18:21] VITALS: BP 112/63; PULSE 87; RESP 18; TEMP 36.2; O2SAT 97
--- NOTE | 2024-11-17 18:21 | PC.NURSE ---
Patient presents to ED c/o double vision, wekaness, and headaches for the last 6 months. Patient denies currently having double vision at this time, eyes PERRLLA Patient rates headache 2/10 pain. No n/v.
--- NOTE | 2024-11-17 18:23 | PC.NURSE ---
Patients presents to ED c/o of double vision, weakness, and headache for the last 6 months. Patient denies currently having double vision at this time. Eyes PERRLA. No N/V, neuros intact. Neg for signs of stroke. Patient rates headache 2/10 pain, Patient states it radiates to the back of my head. CT of head unremarkable. EKG obtained nsr. Performed swallow eval, patient passed. Call dan in reach. Plan of care on going.
[2024-11-17] MEDS: Meclizine HCl 25 MG TABLET PO (19:37)
[2024-11-17 20:00] VITALS: BP 112/63; PULSE 87; RESP 18; TEMP 36.2; O2SAT 97
== END 2024-11-17 20:02 | disposition home or self-care (01) ==
PROVIDERS: Physician Assistant; Emergency Provider Internal Medicine; PCP Nurse Practitioner Family
DX: H81.10 Benign paroxysmal vertigo, unspecified ear (principal); G43.B0 Ophthalmoplegic migraine, not intractable; H53.2 Diplopia
CPT/HCPCS: 36415; 70450; 80053; 84484; 85025; 85610; 85730; 93005; 99284; 99285

== ENCOUNTER → 2024-11-17 13:39 | Outpatient (BNV) | payer OTHER, SELFPAY | PROVIDERS: Emergency Provider Internal Medicine; PCP Nurse Practitioner Family; Visit Provider Internal Medicine | DX: I45.10 Unspecified right bundle-branch block (principal) | CPT/HCPCS: 93010 ==

== ENCOUNTER → 2024-11-17 13:39 | Outpatient (BNV) | payer OTHER, SELFPAY | PROVIDERS: PCP Nurse Practitioner Family; Visit Provider Radiology Diagnostic Radiology | DX: R42 Dizziness and giddiness (principal); H53.2 Diplopia | CPT/HCPCS: 70450 ==

== ENCOUNTER 2025-01-06 14:42 | Emergency (ER) | payer OTHER, SELFPAY ==
--- NOTE | ~2025-01-06 | XR_ITS ---
EXAMINATION: XR CHEST CLINICAL INFORMATION: epigastric pain COMPARISON: 02/09/2018 TECHNIQUE: 2 views of the chest were obtained. FINDINGS: The cardiac, hilar, and mediastinal contours are normal. The lungs are clear bilaterally. There is no pneumothorax or pleural effusion. There is no focal osseous or soft tissue abnormality. XR/XR chest 2V IMPRESSION: Normal chest. Electronically signed by: Prosper Welch MD 01/06/2025 03:53 PM EDT
[2025-01-06 14:49] VITALS: BP 146/72; PULSE 86; RESP 16; TEMP 37.1; O2SAT 99; BMI 22.7
--- NOTE | 2025-01-06 14:52 | ED.ABDPAIN ---
HPI - Abdominal Pain General Chief Complaint: Abdominal Pain Stated Complaint: hernia issue Related Data Home Medications ?Medication ?Instructions ?Recorded ?Confirmed acetaminophen 500 mg tablet 500 mg PO DAILY 02/13/22 09/03/24 amitriptyline 10 mg tablet 30 mg PO BEDTIME 02/13/22 09/03/24 cholecalciferol (vitamin D3) 125 125 mcg PO DAILY 02/13/22 09/03/24 mcg (5,000 unit) tablet (Vitamin D3) dicyclomine 20 mg tablet 1 tab PO TID PRN Gastrointestinal 02/13/22 09/03/24 Spasms Or Cramping melatonin 3 mg tablet 3 mg PO BEDTIME 02/13/22 09/03/24 omega 4-qxu-hoe-fish oil 900 1 cap PO DAILY 02/13/22 09/03/24 mg-1,400 mg capsule,delayed release epinephrine 0.3 mg/0.3 mL 0.3 mg IM Q4H PRN 11/30/23 09/03/24 injection, auto-injector (EpiPen) lamotrigine 200 mg tablet 200 mg PO QAM 11/30/23 09/03/24 propranolol 20 mg tablet 20 mg PO DAILY PRN Cardiac 11/30/23 09/03/24 Arrhythmia quetiapine 25 mg tablet 25 mg PO BEDTIME PRN insomnia 11/30/23 09/03/24 valacyclovir 1 gram tablet 1,000 mg PO DAILY 11/30/23 09/03/24 immune globulin,gamma(IgG)klhw 10 subcut QWEEK 01/23/24 09/03/24 gram/50 mL(20%)subcut solution (Xembify) lorazepam 0.5 mg tablet 0.5 mg PO QID PRN anxiety 01/23/24 09/03/24 mirabegron 25 mg tablet,extended 25 mg PO DAILY 02/15/24 09/03/24 release 24 hr (Myrbetriq) Previous Rx's ?Medication ?Instructions ?Recorded gabapentin 800 mg tablet 800 mg PO TID #90 tabs 09/03/24 meloxicam 7.5 mg tablet 7.5 mg PO DAILY #30 tabs 10/02/24 meclizine 25 mg tablet 25 mg PO TID PRN dizziness #20 tabs 11/17/24 methocarbamol 500 mg tablet 500 mg PO TID PRN muscle spasm #90 05/20/25 tabs gabapentin 600 mg tablet 600 mg PO TID #90 tabs 12/16/24 Allergies Allergy/AdvReac Type Severity Reaction Status Date / Time adhesive Allergy Rash Verified 01/06/25 14:52 [facility] Past Medical History Medical History Recurrent genital herpes Common variable agammaglobulinemia Borderline personality disorder Vitamin D deficiency Gender dysphoria Spondylolisthesis, lumbar region Groin pain, chronic, left History of substance abuse PFO (patent foramen ovale) RBBB PTSD (post-traumatic stress disorder) Anxiety and depression Encephalomyelitis Chronic fatigue syndrome Interstitial cystitis IBS (irritable bowel syndrome) Surgical History History of lingual frenulectomy Hx of wisdom tooth extraction H/O colonoscopy Social History Social History Patient Tobacco Use Status: Former Tobacco user Tobacco use type: Cigarette Substance Use Type: Marijuana Advance Directives: No Advance Directives Information Provided: No Do you have a plan to hurt others: No Plan Physical Exam ED Vital Signs: BMI result Body Mass Index 22.7 Course Reevaluation(s) Reevaluation #1: RME: Shanna Orona PA-C 01/06/2025: 252 pm will defer full ROS and PE to treating provider Called Gi nurse office today and they told her to come here. Dx'd with hiatal hernia 4 years ago, worsening GERD sxs for several months temo after eating, pain gets worse no worsening nausea. NO urinary sxs. feels epigastric pain, no worse with exertion. Didnt feel this is heartburn, did not take any medicine to relieve it. vomited once three days ago after eating something, not sure if this made worse or not Nonbinary patient , no female pronouns. Medical Decision Making Lab Data 01/06/25 15:38 01/06/25 15:38 Labs: Lab Results 01/06/25 Range/Units 15:38 WBC 9.4 (4.8-10.8) X10*3/uL RBC 4.01 L (4.20-5.50) X10*6/uL Hgb 13.0 (12.0-16.0) g/dl Hct 38.1 (37.0-47.0) % MCV 95.0 (80.0-98.0) fL MCH 32.4 (27.0-33.0) pg MCHC 34.1 (31.0-35.0) g/dl RDW 11.9 (11.0-16.0) % Plt Count 328 (160-400) X10*3/uL MPV 8.9 L (9.4-12.3) fL Immature Gran % (Auto) 0.7 H (0.0-0.4) % Neut % (Auto) 66.0 (45-73) % Lymph % (Auto) 22.2 (20-40) % Laporte % (Auto) 7.1 (2-11) % Eos % (Auto) 3.6 (0-4) % Baso % (Auto) 0.4 (0-2) % Lymph # (Auto) 2.1 (1.2-4.9) X10*3/uL [place] # (Auto) 0.7 (0.1-1.2) X10*3/uL Eos # (Auto) 0.3 (0.0-0.4) X10*3/uL Baso # (Auto) 0.0 (0.0-0.2) X10*3/uL Abs Immat Gran (auto) 0.07 H (0.00-0.03) X10*3/uL Absolute Neuts (auto) 6.2 (2.0-8.3) x10*3/uL Absolute Nucleated RBC 0.000 (0.0-0.012) X10*3/uL Nucleated RBC % (auto) 0.0 (0.0-0.2) /100WBC Sodium 139 (135-145) mmol/L Potassium 4.4 (3.3-5.1) mmol/L Chloride 104 (96-108) mmol/L Carbon Dioxide 27 (22-29) mmol/L Anion Gap 12 (12-20) BUN 9 (9-16) mg/dL Creatinine 0.61 (0.5-1.4) mg/dL Estim Creat Clear Calc 103.7 Estimated GFR > 60 Fasting Glucose 104 H (60-99) mg/dL Calcium 10.0 (8.4-10.2) mg/dL Total Bilirubin 0.2 (0.0-1.0) mg/dL AST 19 (5-31) U/L ALT 9 (0-31) U/L Alkaline Phosphatase 57 (39-117) U/L Total Protein 7.5 (6.5-8.0) g/dL Albumin 4.5 (3.5-5.0) g/dL Lipase 21 (8-78) U/L Discharge Plan Discharge Clinical Impression: Heartburn Patient Disposition: Left W/O Completing Treatment Prescriptions: No Action meloxicam 7.5 mg tablet 7.5 mg PO DAILY Qty: 30 3RF methocarbamol 500 mg tablet 500 mg PO TID PRN (Reason: muscle spasm) Qty: 90 1RF Rx Instructions: No driving while taking this medication. Do no take with alcohol or other MEDICAL RECORDS SPECIALIST Depressants gabapentin 600 mg tablet 600 mg PO TID Qty: 90 3RF Rx Instructions: discontinue gabapentin 800mg TID dose melatonin 3 mg Tablet 3 mg PO BEDTIME acetaminophen 500 mg Tablet 500 mg PO DAILY dicyclomine 20 mg tablet 1 tab PO TID PRN (Reason: Gastrointestinal Spasms Or Cramping) amitriptyline 10 mg Tablet 30 mg PO BEDTIME cholecalciferol (vitamin D3) [Vitamin D3] 125 mcg (5,000 unit) Tablet 125 mcg PO DAILY Nicholson 3 Fish Oil 900-1,400 mg Capsule,Delayed Release(Dr/Ec) 1 cap PO DAILY meclizine 25 mg tablet 25 mg PO TID PRN (Reason: dizziness) Qty: 20 0RF valacyclovir 1 gram tablet 1,000 mg PO DAILY lamotrigine 200 mg tablet 200 mg PO QAM quetiapine 25 mg tablet 25 mg PO BEDTIME PRN (Reason: insomnia) propranolol 20 mg tablet 20 mg PO DAILY PRN (Reason: Cardiac Arrhythmia) epinephrine [EpiPen] 0.3 mg/0.3 mL auto-injector 0.3 mg IM Q4H PRN lorazepam 0.5 mg tablet 0.5 mg PO QID PRN (Reason: anxiety) Xembify 10 gram/50 mL (20 %) solution subcut QWEEK mirabegron [Myrbetriq] 25 mg tablet extended release 24 hr 25 mg PO DAILY gabapentin 800 mg tablet 800 mg PO TID Qty: 90 3RF Discharge Date/Time: 01/06/25 20:27
--- NOTE | 2025-01-06 14:56 | ECG_ITS ---
Test Reason : epigastric Blood Pressure : */* mmHG Vent. Rate : 65 BPM Atrial Rate : 65 BPM P-R Int : 166 ms QRS Dur : 126 ms QT Int : 400 ms P-R-T Axes : 69 81 61 degrees QTcB Int : 416 ms Sinus rhythm with Premature atrial complexes Right bundle branch block Abnormal ECG When compared with ECG of 17-Nov-2024 14:00, Premature atrial complexes are now Present Referred By: Shanna Orona Electronically Signed By: CHERYL DOSS
[2025-01-06 15:42] LABS: MANUAL DIFF FLAG NO
[2025-01-06 15:43] LABS: Basophils Percent Auto 0.4 % (0-2); Eosinophils Absolute Auto 0.3 X10*3/uL (0.0-0.4); Eosinophils Percent Auto 3.6 % (0-4); Hematocrit 38.1 % (37.0-47.0); Imm Gran Abs Auto 0.07 X10*3/uL (0.00-0.03); Imm Gran Pct Auto 0.7 % (0.0-0.4); Lymphocytes Absolute Auto 2.1 X10*3/uL (1.2-4.9); Lymphocytes Percent Auto 22.2 % (20-40); Mean Corpuscular HGB Conc 34.1 g/dl (31.0-35.0); Mean Corpuscular Hemoglobin 32.4 pg (27.0-33.0); Mean Platelet Volume 8.9 fL (9.4-12.3); Monocytes Absolute Auto 0.7 X10*3/uL (0.1-1.2); Monocytes Percent Auto 7.1 % (2-11); Neutrophils Absolute Auto 6.2 x10*3/uL (2.0-8.3); Platelet Count 328 X10*3/uL (160-400); Red Blood Count 4.01 X10*6/uL (4.20-5.50); Red Cell Distribution Width 11.9 % (11.0-16.0); White Blood Count 9.4 X10*3/uL (4.8-10.8)
[2025-01-06 15:59] LABS: Alanine Aminotransferase 9 U/L (0-31); Albumin Level 4.5 g/dL (3.5-5.0); Alkaline Phosphatase 57 U/L (39-117); Anion Gap 12 (12-20); Aspartate Amino Transferase 19 U/L (5-31); Bilirubin Total 0.2 mg/dL (0.0-1.0); Blood Urea Nitrogen 9 mg/dL (9-16); Carbon Dioxide 27 mmol/L (22-29); Chloride 104 mmol/L (96-108); Creatinine Clr Calc Pharmacy 103.7; Estimated Glomerular Filt Rate > 60; Glucose Fasting 104 mg/dL (60-99); Lipase 21 U/L (8-78); Potassium 4.4 mmol/L (3.3-5.1); Sodium 139 mmol/L (135-145); Total Protein 7.5 g/dL (6.5-8.0)
--- NOTE | 2025-01-06 19:30 | PC.NURSE ---
Called patient back to re-triage. Pt refusing vitals, stating that she was about to leave and if she wasn't going back to room she was leaving. T/w attempted to get pt to stay but pt refused.
--- OUTSIDE RECORDS SUMMARY | 2025-01-06 19:38 | XMS_ITS | Patient Health Record ---
Demographics Address [address] ` [place] [address] Email Address Preferred Language en Marital Status Unknown Faith Affiliation Unknown Race White Ethnic Group Not or Lati no Author Organization [facility] Address [address] [place] [address] Care Team Providers Care Full Stack Net Developer Name Role Phone Shellie Munroe Primary Care Provider Unavail able Doug Castro Unavailable [phone] Allergies No Known Allergies Reason For Referral [...] A DAY NEEDED Oral for 30 Active [place] 3 Active D-3-5 125 MCG (5000 UT) [...] confirmed Problem Irritable bowel syndrome with diarrhea (351379106) Irritable bowel syndrome with diarrhea (K58.0) Active confirmed Problem Hiatal hernia (17280838) Hiatal hernia (K44.9) Active confirmed Problem Gastroesophageal reflux disease (698064605) GERD (gastroesophageal reflux disease) (K21.9) Active confirmed Problem Epigastric pain (70370695) Abdominal pain, acute, epigastric (R10.13) Active confirmed Problem Esophageal reflux finding (081177438) Gastroesophageal reflux (K21.9) Active confirmed Plan Of Treatment Future Test Test Name Order Date UPPER GI ENDOSCOPY 12/09/2021 Next Appt Details Provider Name:Doug Castro , 02/24/2025 10:50:00 AM, [address] [place] [address], [facility], [place], [address], Insurance Providers Payer Name Payer Address Payer Phone Subscriber Number Group Number Insured Name Patient Relationship to Insured Coverage Start Date Coverage End Date [facility] [address] [address] [place], [place] [id number] DAHIANA CORDOVA Self - patient is the insured Medical (General) History Medical History History ICD Code Chronic fatigue syndrome/Junie lgic Encephalomyelitis--possibly triggered by Lyme's Disease in approx. 2013-muscle weakness and pain--uses a walker and wheelchair at times Vitamin D deficiency Common variable immunodeficiency- SQ IG Xembify monthly Anxiety, depression, PTSD Right bundle branch block an d a PFO--[facility]----well managed with diet, cannabi s vapor and edibles, Dicyclomine prn Denies AK,DM,CVA,Lung disease,renal dise ase Interstitial cystitis She describes [...] for Jesus's esophagus. Surgical History Surgery Date(Month/Year) Star teeth extraction Frenectomy between lip and gum 2003
== END 2025-01-06 20:27 | disposition left against medical advice (07) ==
PROVIDERS: Physician Assistant Medical; Emergency Provider Emergency Medicine; PCP Physician Assistant Medical
DX: R12 Heartburn (principal)
CPT/HCPCS: 36415; 71046; 80053; 83690; 85025; 93005; 99283

== ENCOUNTER → 2025-01-06 14:55 | Outpatient (BNV) | payer OTHER, SELFPAY | PROVIDERS: PCP Physician Assistant Medical; Visit Provider Radiology Diagnostic Radiology | DX: R10.13 Epigastric pain (principal) | CPT/HCPCS: 71046 ==

== ENCOUNTER → 2025-01-06 14:56 | Outpatient (BNV) | payer OTHER, SELFPAY | PROVIDERS: Emergency Provider Emergency Medicine; PCP Physician Assistant Medical; Visit Provider Internal Medicine | DX: I45.10 Unspecified right bundle-branch block (principal); I49.1 Atrial premature depolarization | CPT/HCPCS: 93010 ==

== ENCOUNTER 2025-02-18 09:53 | Outpatient (REF) | payer OTHER, SELFPAY ==
--- NOTE | ~2025-02-18 | US_ITS ---
CLINICAL HISTORY: EPIGASTRIC PAIN US abdomen complete Comparison: None provided Findings: The visualized pancreas is normal. The aorta and inferior vena cava are normal caliber. The liver is normal in size. Left hepatic lobe cyst measuring 14 mm. There is no intrahepatic bile duct dilatation. The common duct is for mm in diameter. The gallbladder is normal. There is no sonographic Alvarez sign. The main portal vein is antegrade. The right kidney is 9.4 cm in length. The left kidney is 9.2 cm in length. The spleen is normal. No ascites. IMPRESSION: 1. Normal complete abdominal ultrasound. This document has been electronically signed by: Marta Carvajal MD on 02/18/2025 14:42:11
--- OUTSIDE RECORDS SUMMARY | 2025-02-18 10:24 | XMS_ITS | Encounter Summary ---
Author Organization [facility] Address [address] [facility] [address] [place] [address] Phone Care Team Providers Care Button And Buckle Maker Name Role Phone Jay Castillo MD Unavailable [phone] Shayy James NP Unavailable [phone] Kaye Gomez MD Unavailable [phone] Ben Cannon MD Unavailable [phone] Shellie Munroe CEMENT TRUCK DRIVER Primary Care Provid er Encounter Details Date Type Department Care Team (Late Contact Info) Description 01/13/2021 Procedure Pass Echo Lab [address] [id number] Social History Tobacco Use Types Packs/Day Years Used Date Smoking Tobacco: Former Cigarettes 1 - 2014 Smokeless Tobacco: Never Comments:Smokes/Vaporizes ma rijuana Comments Unknown Sex and Gender Information Value Date Recorded Sex Assigned at Not on file Legal Sex Female 9:19 PM EDT Gender Identity Not on file Sexual Orientation Not on file documented as of this encounter Plan of Treatment Upcoming Encounters Date Type Department Care Team (Late Contact Info) Description 08/18/2025 10:15 AM EST Office Visit [facility] [address] [facility] [address] Floor, [address] [place], [place] [id number] Felipe Conn DO [address] [facility] [address] [place] [address] documented as of this encounter Visit Diagnoses Not on filedocumented in this encounter Care Teams Button And Buckle Maker Relationship Specialty Start Date End Date Shellie Munroe NP [address] [place] [id number] PCP - General Family Medicine 08/08/19 Jay Castillo MD [address] [address] [email or web address] Historical LMR Provider 05/02/17 07/23/21 Shayy James NP [address] [place] [address] Historical LMR Provider 05/02/17 2 Kaye Gomez MD [address] [place] [address] Historical LMR Provider 05/02/17 2 Ben Cannon MD [address] [place] [address] Historical LMR Provider 05/02/17 2 documented as of this encounter Additional Source Comments The information contained in this document represents components of the legal health record. It is not the complete legal health record.[facility]
--- OUTSIDE RECORDS SUMMARY | 2025-02-18 10:24 | XMS_ITS | Patient Health Record ---
Demographics Address [address] ` [place] [address] Email Address Preferred Language en Marital Status Unknown [employer] Affiliation Unknown Race White Ethnic Group Not or Lati no Author Organization [facility] Address [address] [place] [address] Care Team Providers Care Language Assistant Name Role Phone Shellie Munroe Primary Care Provider Unavail able Doug Castro Unavailable [phone] Allergies No Known Allergies Reason For Referral [...] A DAY NEEDED Oral for 30 Active [place] 3 Active D-3-5 125 MCG (5000 UT) [...] Xembify 1 GM/5ML Subcutaneous for 30 Active Omeprazole 20 MG 1 Orally Once a day every morning for 30 days 01/11/2025 Active Immunizations Vaccine Route Administration Date Status [...] Problem Status W/U Status Risk Notes Problem Epigastric pain (12383375) Epigastric abdominal pain (R10.13) Active confirmed Problem Irritable bowel syndrome (78006518) Irritable bowel syndrome (K58.9) Active confirmed Problem Irritable bowel syndrome with diarrhea (710925482) Irritable bowel syndrome with diarrhea (K58.0) Active confirmed Problem Hiatal hernia (17749625) Hiatal hernia (K44.9) Active confirmed Problem Gastroesophageal reflux disease (026991788) GERD (gastroesophageal reflux disease) (K21.9) Active confirmed Problem Epigastric pain (07699400) Abdominal pain, acute, epigastric (R10.13) Active confirmed Problem Esophageal reflux finding (477367790) Gastroesophageal reflux (K21.9) Active confirmed Encounters Encounter Location Date Provider Diagnosis [facility] [address] [place] [address] 01/07/2025 Doug Castro Epigastric abdominal pain R10.13 Assessments Encounter Date Diagnosis (ICD Code) Assessment Notes Treatment Notes Treatment Clinical Notes Section Notes 01/07/2025 Epigastric abdominal pain (ICD-10 - R10.13) Plan Of Treatment Pending Test Test Name Order Date US abdomen complete 01/07/2025 Future Test Test Name Order Date UPPER GI ENDOSCOPY 12/09/2021 Next Appt Details Provider Name:Doug Castro , 02/24/2025 10:50:00 AM, [address], [address], [place], [address], Insurance Providers Payer Name Payer Address Payer Phone Subscriber Number Group Number Insured Name Patient Relationship to Insured Coverage Start Date Coverage End Date [facility] [address] [address] [place], [place] [id number] [phone] [id number] DAHIANA CORDOVA Self - patient is the insured Medical (General) History Medical History History ICD Code Chronic fatigue syndrome/Junie lgic Encephalomyelitis--possibly triggered by Lyme's Disease in approx. 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 Surgical History Surgery Date(Month/Year) [place] teeth extraction Frenectomy between lip and gum 2003
== END 2025-02-18 09:54 | disposition home or self-care (01) ==
LOC: HO.HMGCX 09:53
PROVIDERS: PCP Physician Assistant Medical; Visit Provider Internal Medicine
DX: R10.13 Epigastric pain (principal)
CPT/HCPCS: 76700

== ENCOUNTER → 2025-02-18 09:57 | Outpatient (BNV) | payer OTHER, SELFPAY | PROVIDERS: PCP Physician Assistant Medical; Visit Provider Radiology Diagnostic Radiology | DX: R10.13 Epigastric pain (principal) | CPT/HCPCS: 76700 ==

== ENCOUNTER 2025-02-24 17:15 | Emergency (ER) | payer OTHER, SELFPAY ==
--- NOTE | ~2025-02-24 | CT_ITS ---
CLINICAL HISTORY: abrupt severe L S-I l-S pain with rotation CT lumbar spine without contrast. COMPARISON: None provided. FINDINGS: Grade 1 anterolisthesis of L5 on S1 secondary to chronic bilateral pars defects at L5. Vertebral body heights are maintained. No evidence of acute vertebral body injury. The visualized paraspinal and retroperitoneal soft tissues are unremarkable. L5-S1: Loss of disc space height. Vacuum disc phenomena. Posterior disc uncovering measuring 4 mm. Facet joint arthrosis. Moderate bilateral neural foraminal narrowing. L4-L5: Intervertebral disc is normal in height. No significant disc bulge or central canal stenosis. L3-L4: Intervertebral disc is normal in height. No significant disc bulge or central canal stenosis. L2-L3: Intervertebral disc is normal in height. No significant disc bulge or central canal stenosis. L1-L2: Intervertebral disc is normal in height. No significant disc bulge or central canal stenosis. IMPRESSION: 1. No acute osseous or alignment abnormality of the lumbar spine. 2. Grade 1 anterolisthesis of L5 on S1 secondary to chronic bilateral pars defects at L5. 3. Moderate to advanced degenerative changes at L5-S1. This document has been electronically signed by: Efraín Amado MD on 02/24/2025 19:26:38
[2025-02-24 17:23] VITALS: BP 130/46; PULSE 72; RESP 18; O2SAT 99
[2025-02-24 17:30] VITALS: BP 116/82; BP 118/85; PULSE 85; PULSE 86; RESP 16; TEMP 36.6; O2SAT 98; BMI 23.1
--- NOTE | 2025-02-24 17:52 | ED.BACK ---
HPI - Back Pain/Injury General Chief Complaint: Back Pain/Injury Stated Complaint: LOWER BACK PAIN Time Seen by Provider: 02/24/25 17:51 History of Present Illness ED Provider: Hermann Green MD HPI Narrative: 45-year-old female who has chronic sacroiliac dysfunction and other chronic degenerative disease of the spine made a sudden twisting rotational movement today felt sudden severe exacerbation of the bilateral sacroiliac pain and particularly left lumbosacral pain radiating to the left leg. No focal neurologic symptoms certainly no loss of motor or sensory or continence function no fever chills direct blow or fall Related Data Home Medications ?Medication ?Instructions ?Recorded ?Confirmed acetaminophen 500 mg tablet 500 mg PO DAILY 02/13/22 09/03/24 amitriptyline 10 mg tablet 30 mg PO BEDTIME 02/13/22 09/03/24 cholecalciferol (vitamin D3) 125 125 mcg PO DAILY 02/13/22 09/03/24 mcg (5,000 unit) tablet (Vitamin D3) dicyclomine 20 mg tablet 1 tab PO TID PRN Gastrointestinal 02/13/22 09/03/24 Spasms Or Cramping melatonin 3 mg tablet 3 mg PO BEDTIME 02/13/22 09/03/24 omega 5-qqk-rvd-fish oil 900 1 cap PO DAILY 02/13/22 09/03/24 mg-1,400 mg capsule,delayed release epinephrine 0.3 mg/0.3 mL 0.3 mg IM Q4H PRN 11/30/23 09/03/24 injection, auto-injector (EpiPen) lamotrigine 200 mg tablet 200 mg PO QAM 11/30/23 09/03/24 propranolol 20 mg tablet 20 mg PO DAILY PRN Cardiac 11/30/23 09/03/24 Arrhythmia quetiapine 25 mg tablet 25 mg PO BEDTIME PRN insomnia 11/30/23 09/03/24 valacyclovir 1 gram tablet 1,000 mg PO DAILY 11/30/23 09/03/24 immune globulin,gamma(IgG)klhw 10 subcut QWEEK 01/23/24 09/03/24 gram/50 mL(20%)subcut solution (Xembify) lorazepam 0.5 mg tablet 0.5 mg PO QID PRN anxiety 01/23/24 09/03/24 mirabegron 25 mg tablet,extended 25 mg PO DAILY 02/15/24 09/03/24 release 24 hr (Myrbetriq) Previous Rx's ?Medication ?Instructions ?Recorded gabapentin 800 mg tablet 800 mg PO TID #90 tabs 09/03/24 meloxicam 7.5 mg tablet 7.5 mg PO DAILY #30 tabs 10/02/24 meclizine 25 mg tablet 25 mg PO TID PRN dizziness #20 tabs 11/17/24 gabapentin 600 mg tablet 600 mg PO TID #90 tabs 12/16/24 methocarbamol 500 mg tablet 500 mg PO TID PRN muscle spasm #90 01/29/25 tabs Allergies Allergy/AdvReac Type Severity Reaction Status Date / Time adhesive Allergy Rash Verified 02/24/25 17:36 [facility] Past Medical History Medical History Recurrent genital herpes Common variable agammaglobulinemia Borderline personality disorder Vitamin D deficiency Gender dysphoria Spondylolisthesis, lumbar region Groin pain, chronic, left History of substance abuse PFO (patent foramen ovale) RBBB PTSD (post-traumatic stress disorder) Anxiety and depression Encephalomyelitis Chronic fatigue syndrome Interstitial cystitis IBS (irritable bowel syndrome) Surgical History History of lingual frenulectomy Hx of wisdom tooth extraction H/O colonoscopy Social History Social History Patient Tobacco Use Status: Former Tobacco user Tobacco use type: Cigarette Substance Use Type: Marijuana Physical Exam Exam: Exam: GENERAL: Well appearing. No apparent distress. Alert. HEAD/NECK: Normal to inspection. Neck supple. No cervical lymphadenopathy. EYES: Normal to inspection. Sclera non-icteric. ENMT: External nose normal. RESPIRATORY: Respiratory effort normal. Lungs clear to auscultation bilaterally. CARDIOVASCULAR: Regular rate. Normal rhythm. No murmur. No rubs. GI: Soft, non-tender, non-distended. No rebound or guarding. No masses palpable. No hepatosplenomegaly. SKIN: No jaundice. NEUROLOGICAL: Alert. PSYCHIATRIC: Alert. Appearance appropriate for situation. Attitude cooperative. OTHER: Comprehensive Neuro exam: Sensation intact to light touch throughout 5 out of 5 strength in bilateral upper extremities, 5 and 5 strength in lower extremities left low back pain exacerbated straight leg lift left leg grossly intact tone Vital Signs: Vital Signs: Last Vital Signs Temp 98.3 F 02/24/25 20:05 Pulse 60 02/24/25 20:05 Resp 16 02/24/25 20:05 BP 103/53 L 02/24/25 20:05 Pulse Ox 97 02/24/25 20:05 O2 Del Method Room Air 02/24/25 20:05 BMI result Body Mass Index 23.1 Medications Administered Discontinued Medications Generic Name Dose Route Start Last Admin Trade Name Freq PRN Reason Stop Dose Admin Diazepam 2.5 mg 02/24/25 17:52 02/24/25 18:36 Diazepam 10 Mg/2 Ml Cartridge IVPUSH 02/24/25 17:53 2.5 mg STAT STA Administration Ketorolac Tromethamine 15 mg 02/24/25 17:52 02/24/25 18:35 Ketorolac Tromethamine 15 Mg/Ml Vial IVPUSH 02/24/25 17:53 15 mg ONCE ONE Administration Lidocaine 1 patch 02/24/25 17:52 02/24/25 19:18 Lidocaine 4 % Patch Adh..Patch TRANSDERMA 02/24/25 17:53 1 patch ONCE ONE Administration Protocol Morphine Sulfate 2 mg 02/24/25 17:52 02/24/25 18:36 Morphine Sulfate 2 Mg/Ml Cartridge IVPUSH 02/24/25 17:53 2 mg ONCE ONE Administration Protocol Medical Decision Making Medical Decision Making MDM Narrative: Medical Decision Makin-year-old female acute on chronic bilateral low back pain with worse left low back pain today after a rotational movement. No focal motor or sensory deficits or incontinence or other suggestion of cauda equina syndrome cord compression. No direct blow. No IV drug use. Doubt spinal epidural abscess but this was considered. Preliminary Favored Differential Diagnosis: Back strain, back spasm, exacerbation of underlying spondylolisthesis or chronic degenerative disc disease among additional considered etiologies Testing Interpreted Independently: Not Applicable Radiology or Lab testing Results Reviewed: CT with no acute actionable musculoskeletal findings Consults: Not Applicable Independent Historians/External Chart Reviews: Not Applicable Social Determinants of Health Impacting MDM/Planning: Not Applicable Discharge Plan Discharge Clinical Impression: Sacroiliac joint dysfunction of both sides Patient Disposition: Home, Self-Care Instructions: Sacroiliitis (ED) Additional Instructions: DISCHARGE DIAGNOSES: Chronic sacroiliitis with exacerbation FINDINGS: Grade 1 anterolisthesis of L5 on S1 secondary to chronic bilateral pars defects at L5. Vertebral body heights are maintained. No evidence of acute vertebral body injury. The visualized paraspinal and retroperitoneal soft tissues are unremarkable. L5-S1: Loss of disc space height. Vacuum disc phenomena. Posterior disc uncovering measuring 4 mm. Facet joint arthrosis. Moderate bilateral neural foraminal narrowing. L4-L5: Intervertebral disc is normal in height. No significant disc bulge or central canal stenosis. L3-L4: Intervertebral disc is normal in height. No significant disc bulge or central canal stenosis. L2-L3: Intervertebral disc is normal in height. No significant disc bulge or central canal stenosis. L1-L2: Intervertebral disc is normal in height. No significant disc bulge or central canal stenosis. IMPRESSION: 1. No acute osseous or alignment abnormality of the lumbar spine. 2. Grade 1 anterolisthesis of L5 on S1 secondary to chronic bilateral pars defects at L5. 3. Moderate to advanced degenerative changes at L5-S1. HISTORY OF PRESENTATION: Rotational movement with acute on chronic low back pain EMERGENCY DEPARTMENT COURSE,TESTS, TREATMENTS: While in the ED today CT revealed no significant acute actionable findings of the spine see above DISCHARGE MEDICATIONS: ?[We have made no changes to your regular medication regimen] FOLLOW-UP: ?Call your primary or general physician soon as possible to discuss your symptoms, your ED visit and to discuss follow up plans Call your paint trimmer pipe bowls for follow up INSTRUCTIONS ?& RETURN PRECAUTIONS: If any symptoms change first call your primary physician, if it is after-hours your primary doctors office should have a provider button cutting machine operator you can speak with. If the symptoms are severe or very concerning to you then call 911 or return to the ED. Hermann Green MD Emergency Physician [facility] Prescriptions: No Action meloxicam 7.5 mg tablet 7.5 mg PO DAILY Qty: 30 3RF gabapentin 600 mg tablet 600 mg PO TID Qty: 90 3RF Rx Instructions: discontinue gabapentin 800mg TID dose methocarbamol 500 mg tablet 500 mg PO TID PRN (Reason: muscle spasm) Qty: 90 1RF Rx Instructions: No driving while taking this medication. Do no take with alcohol or other MANUFACTURING ELECTRICIAN Depressants melatonin 3 mg Tablet 3 mg PO BEDTIME acetaminophen 500 mg Tablet 500 mg PO DAILY dicyclomine 20 mg tablet 1 tab PO TID PRN (Reason: Gastrointestinal Spasms Or Cramping) amitriptyline 10 mg Tablet 30 mg PO BEDTIME cholecalciferol (vitamin D3) [Vitamin D3] 125 mcg (5,000 unit) Tablet 125 mcg PO DAILY [place] 3 Fish Oil 900-1,400 mg Capsule,Delayed Release(Dr/Ec) 1 cap PO DAILY meclizine 25 mg tablet 25 mg PO TID PRN (Reason: dizziness) Qty: 20 0RF valacyclovir 1 gram tablet 1,000 mg PO DAILY lamotrigine 200 mg tablet 200 mg PO QAM quetiapine 25 mg tablet 25 mg PO BEDTIME PRN (Reason: insomnia) propranolol 20 mg tablet 20 mg PO DAILY PRN (Reason: Cardiac Arrhythmia) epinephrine [EpiPen] 0.3 mg/0.3 mL auto-injector 0.3 mg IM Q4H PRN lorazepam 0.5 mg tablet 0.5 mg PO QID PRN (Reason: anxiety) Xembify 10 gram/50 mL (20 %) solution subcut QWEEK mirabegron [Myrbetriq] 25 mg tablet extended release 24 hr 25 mg PO DAILY gabapentin 800 mg tablet 800 mg PO TID Qty: 90 3RF Interventions: ED Discharge Assessment Last Done: 02/24/25 20:05 Discharge Date/Time: 02/24/25 20:13 Print Language: Lao
--- OUTSIDE RECORDS SUMMARY | 2025-02-24 17:56 | XMS_ITS | Patient Health Record ---
Demographics Address [address] ` [place] [address] Mobile Email Address Preferred Language en Marital Status Unknown Jew Affiliation Unknown Race White Ethnic Group Not or Lati no Author Organization [facility] Address [address] [place] [address] Care Team Providers Care Sailing Officer Name Role Phone TANA ATWOOD Primary Care Provider Doug Siu [phone] Allergies No Known Allergies Results Component Value Reference Range Notes US abdomen complete Reviewed date:02/24/2025 11:51:30 AM Interpretation: Performing Lab: Notes/Report: [facility] [address] [place] [address] [place] [address] Ultrasound Report Signed Patient: Sharee Littlejohn MR#: [id number] : 1980 Acct:[id number] Age/Sex: 45 / F ADM Date: 02/18/25 Loc: HO.HMGCX Attending Dr: Doug Castro MD Ordering Physician: Doug Castro MD Date of Service: 02/18/25 Procedure(s): US abdomen complete Accession Number(s): [id number] cc: Tana Atwood; Doug Castro MD CLINICAL HISTORY: EPIGASTRIC PAIN US abdomen complete Comparison: None provided Findings: The visualized pancreas is normal. The aorta and inferior vena cava are normal caliber. The liver is normal in size. Left hepatic lobe cyst measuring 14 mm. There is no intrahepatic bile duct dilatation. The common duct is for mm in diameter. The gallbladder is normal. There is no sonographic Alvarez sign. The main portal vein is antegrade. The right kidney is 9.4 cm in length. The left kidney is 9.2 cm in length. The spleen is normal. No ascites. IMPRESSION: 1. Normal complete abdominal ultrasound. This document has been electronically signed by: Marta Carvajal MD on 02/18/2025 14:42:11 Dictated By: Marta Carvajal MD Signed By: <Electronically signed by Marta Carvajal MD in OV> 02/18/251442 DD/ 41 TD/TT: 02/18/251441 Transition Manager: Reason For Referral No Information Medications Medication SIG (Take, Route, Frequency, Duration) Notes Start Date End Date Status Mirabegron ER 25 MG TAKE ONE TABLET BY M OUTH DAILY. Oral for 30 Days Active Banophen 25 MG as needed Orally ghislaine ry 7 da for 30 days Active N-Acetyl Cysteine 600 MG as directed Orally Active Mirabegron ER 25 MG 1 tablet Orally Once a day Active lamoTRIgine 200 MG 1 tablet Oral Once a day for 30 days Active Meclizine HCl 25 MG 1 tablet as needed O rally every 12 hrs Active Xembify 10 GM/50ML as directed Subcutan eous every 7 days for 30 days Active Meloxicam 7.5 MG 1 tablet Orally Once a day Active LORazepam 0.5 MG TAKE ONE TABLET BY M OUTH EVERY 8 HOURS NEEDED FOR ANXIETY Oral for 30 Active Famotidine 20 MG 1 tablet at bedtime as needed Orally Once a day Active Propranolol HCl 20 MG TAKE ONE TABLET BY MOUTH THREE TIMES A DAY NEEDED Oral for 30 Active Trace Minerals Cu-Mn-Se-Zn Active Myrbetriq 25 MG Oral for 30 Ac tive Gabapentin 600 MG 1 capsule Orally 3 t imes a day for 30 days Active Dicyclomine HCl 20 MG Oral for 15 Active Acetyl L-Carnitine A ctive Methocarbamol 500 MG 1.5 tablets Orally every 4 hrs for 30 day(s) 02/24/2025 Active Gormania 3 Active Omeprazole 20 MG 1 Orally Once a day every morning for 30 days 01/11/2025 Active Probiotic - as directed Orally d aily/ brewed Active Immunizations Vaccine Route Administration Date Status [...] years 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, benzodiazepenes Uses canabis---vapes--helps the stomach complaints Nonsmoker; no sig alcohol 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, benzodiazepenes Nonsmoker; no sig alcohol dont drink for 11 years 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, benzodiazepenes uses canabis Problems Problem Type SNOMED Code ICD Code Onset Dates Problem Status W/U Status Risk Notes Problem Epigastric pain (48589678) Epigastric abdominal pain (R10.13) Active confirmed Problem Irritable bowel syndrome (04240914) Irritable bowel syndrome (K58.9) Active confirmed Problem Irritable bowel syndrome with diarrhea (236800084) Irritable bowel syndrome with diarrhea (K58.0) Active confirmed Problem Hiatal hernia (27220019) Hiatal hernia (K44.9) Active confirmed Problem Gastroesophageal reflux disease (432650720) GERD (gastroesophageal reflux disease) (K21.9) Active confirmed Problem Epigastric pain (13097821) Abdominal pain, acute, epigastric (R10.13) Active confirmed Problem Esophageal reflux finding (024900659) Gastroesophageal reflux (K21.9) Active confirmed Vital Signs Blood pressure diastolic 77 mm Hg 02/24/2025 Height 64 in 02/24/2025 Blood pressure systolic 111 mm Hg 02/24/2025 Weight 128 lbs 02/24/2025 BMI 21.97 kg/m2 02/24/2025 Encounters Encounter Location Date Provider Diagnosis [facility] [address] [place] [phone] 02/24/2025 Doug Castro GERD (gastroesophageal reflux disease) K21.9 ; Irritable bowel syndrome with diarrhea K58.0 and Epigastric abdominal pain R10.13 [facility] [address] [place] [phone] 01/07/2025 Doug Castro Epigastric abdominal pain R10.13 [facility] [address] [place] [address] [address] [place] [phone] 02/24/2025 Doug Castro Assessments Encounter Date Diagnosis (ICD Code) Assessment Notes Treatment Notes Treatment Clinical Notes Section Notes 02/24/2025 GERD (gastroesophag eal reflux disease) (ICD-10 - K21.9) Overall, Sharee appears well from a clinical standpoint. We did review that her recent symptoms seem most consistent with that of an exacerbation of the underlying irritable bowel syndrome as well as perhaps some reflux. I do not think her symptoms reflect any underlying significant GI pathology. We did review the small hiatal hernia that had been visualized on the upper endoscopy and I advised her that I do not think this is playing a role in her symptoms at this time. Since things seem to be somewhat improving I have recommended that she stop the omeprazole given the otherwise negative endoscopy in the past and no definitive reflux symptoms. I have also advised her that she could continue to use daily famotidine for a while but then perhaps try to come off of that as well. However, I did advise her that she could resume either the omeprazole or the famotidine if she is having any acid reflux symptoms that she thinks require treatment. In regard to the abdominal complaints we did review that this seems consistent with the irritable bowel syndrome. I did advise her to continue her dicyclomine before each meal and then again later in the day if need be. I do not think the symptoms are reflective of any underlying process such as inflammatory bowel disease. We did discuss the possibility of some lactose intolerance given what she describes as a diet high in dairy content. I did advise her to perhaps try to find lactose-free items instead. However, she did not seem particularly enthusiastic about that idea. We did review that she should have a colonoscopy for screening at age 47. If things are otherwise well I advised her to see me in the interim on a as needed basis. Sharee was comfortable with this plan. Thank you again for allowing me to participate in Sharee's care. I shall continue to keep you advised of her progress. 01/07/2025 Epigastric abdominal pain (ICD-10 - R10.13) 02/24/2025 Irritable bowel syndrome with diarrhea (ICD-10 - K58.0) Stop omeprazole and use Famotidine daily for a while---you can eventually stop the Famotidine if you want to and use as needed Use Dicyclomine before each meal twice a day, and then as needed during the day as well. Overall, Sharee appears well from a clinical standpoint. We did review that her recent symptoms seem most consistent with that of an exacerbation of the underlying irritable bowel syndrome as well as perhaps some reflux. I do not think her symptoms reflect any underlying significant GI pathology. We did review the small hiatal hernia that had been visualized on the upper endoscopy and I advised her that I do not think this is playing a role in her symptoms at this time. Since things seem to be somewhat improving I have recommended that she stop the omeprazole given the otherwise negative endoscopy in the past and no definitive reflux symptoms. I have also advised her that she could continue to use daily famotidine for a while but then perhaps try to come off of that as well. However, I did advise her that she could resume either the omeprazole or the famotidine if she is having any acid reflux symptoms that she thinks require treatment. In regard to the abdominal complaints we did review that this seems consistent with the irritable bowel syndrome. I did advise her to continue her dicyclomine before each meal and then again later in the day if need be. I do not think the symptoms are reflective of any underlying process such as inflammatory bowel disease. We did discuss the possibility of some lactose intolerance given what she describes as a diet high in dairy content. I did advise her to perhaps try to find lactose-free items instead. However, she did not seem particularly enthusiastic about that idea. We did review that she should have a colonoscopy for screening at age 47. If things are otherwise well I advised her to see me in the interim on a as needed basis. Sharee was comfortable with this plan. Thank you again for allowing me to participate in Sharee's care. I shall continue to keep you advised of her progress. 02/24/2025 Epigastric abdominal pain (ICD-10 - R10.13) Overall, Sharee appears well from a clinical standpoint. We did review that her recent symptoms seem most consistent with that of an exacerbation of the underlying irritable bowel syndrome as well as perhaps some reflux. I do not think her symptoms reflect any underlying significant GI pathology. We did review the small hiatal hernia that had been visualized on the upper endoscopy and I advised her that I do not think this is playing a role in her symptoms at this time. Since things seem to be somewhat improving I have recommended that she stop the omeprazole given the otherwise negative endoscopy in the past and no definitive reflux symptoms. I have also advised her that she could continue to use daily famotidine for a while but then perhaps try to come off of that as well. However, I did advise her that she could resume either the omeprazole or the famotidine if she is having any acid reflux symptoms that she thinks require treatment. In regard to the abdominal complaints we did review that this seems consistent with the irritable bowel syndrome. I did advise her to continue her dicyclomine before each meal and then again later in the day if need be. I do not think the symptoms are reflective of any underlying process such as inflammatory bowel disease. We did discuss the possibility of some lactose intolerance given what she describes as a diet high in dairy content. I did advise her to perhaps try to find lactose-free items instead. However, she did not seem particularly enthusiastic about that idea. We did review that she should have a colonoscopy for screening at age 47. If things are otherwise well I advised her to see me in the interim on a as needed basis. Sharee was comfortable with this plan. Thank you again for allowing me to participate in Sharee's care. I shall continue to keep you advised of her progress. 02/24/2025 Other Have a colonoscopy at age 47 for screening Overall, Sharee appears well from a clinical standpoint. We did review that her recent symptoms seem most consistent with that of an exacerbation of the underlying irritable bowel syndrome as well as perhaps some reflux. I do not think her symptoms reflect any underlying significant GI pathology. We did review the small hiatal hernia that had been visualized on the upper endoscopy and I advised her that I do not think this is playing a role in her symptoms at this time. Since things seem to be somewhat improving I have recommended that she stop the omeprazole given the otherwise negative endoscopy in the past and no definitive reflux symptoms. I have also advised her that she could continue to use daily famotidine for a while but then perhaps try to come off of that as well. However, I did advise her that she could resume either the omeprazole or the famotidine if she is having any acid reflux symptoms that she thinks require treatment. In regard to the abdominal complaints we did review that this seems consistent with the irritable bowel syndrome. I did advise her to continue her dicyclomine before each meal and then again later in the day if need be. I do not think the symptoms are reflective of any underlying process such as inflammatory bowel disease. We did discuss the possibility of some lactose intolerance given what she describes as a diet high in dairy content. I did advise her to perhaps try to find lactose-free items instead. However, she did not seem particularly enthusiastic about that idea. We did review that she should have a colonoscopy for screening at age 47. If things are otherwise well I advised her to see me in the interim on a as needed basis. Sharee was comfortable with this plan. Thank you again for allowing me to participate in Sharee's care. I shall continue to keep you advised of her progress. Plan Of Treatment Pending Test Test Name Order Date US abdomen complete 01/07/2025 Future Test Test Name Order Date UPPER GI ENDOSCOPY 12/09/2021 Insurance Providers Payer Name Payer Address Payer Phone Subscriber Number Group Number Insured Name Patient Relationship to Insured Coverage Start Date Coverage End Date [facility] [employer] [facility] [address] [address] [place], [place] [id number] SHAREE LITTLEJOHN Self - patient is the insured Medical (General) History Medical History History ICD Code Vitamin D deficiency Common variable immunodeficiency- SQ IG weekly Anxiety, depression, PTSD Right bundle branch block an d a PFO- 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 Duodenal biopsies were negative for celiac disease, gastric biopsies were negative for H. pylori, and biopsies from the gastroesophageal junction were negative for Jesus's esophagus. Migraines with vertigo Surgical History Surgery Date(Month/Year) Frenectomy between lip and gum 2003 [place] teeth extraction
[2025-02-24] MEDS: diazePAM 10 MG/2 ML CARTRIDGE 2.5 MG IVPUSH (18:36)
[2025-02-24] MEDS: Lidocaine 4 % Patch ADH..PATCH 1 PATCH TRANSDERMA (19:18)
[2025-02-24 20:00] VITALS: BP 103/53; PULSE 60; RESP 16; TEMP 36.8; O2SAT 97
[2025-02-24 20:05] VITALS: BP 103/53; PULSE 60; RESP 16; TEMP 36.8; O2SAT 97
== END 2025-02-24 20:13 | disposition home or self-care (01) ==
PROVIDERS: Emergency Provider Emergency Medicine; PCP Physician Assistant Medical
DX: M53.3 Sacrococcygeal disorders, not elsewhere classified (principal); M43.16 Spondylolisthesis, lumbar region; M54.42 Lumbago with sciatica, left side; Z79.899 Other long term (current) drug therapy
CPT/HCPCS: 72131; 96374; 96375; 99284; J1885; J2270; J3360

== ENCOUNTER → 2025-02-24 18:34 | Outpatient (BNV) | payer OTHER, SELFPAY | PROVIDERS: Emergency Provider Emergency Medicine; PCP Physician Assistant Medical; Visit Provider Radiology Diagnostic Radiology | DX: M43.16 Spondylolisthesis, lumbar region (principal) | CPT/HCPCS: 72131 ==